=== PATIENT | female | born 1975 | race Caucasian/White ===

== ENCOUNTER → 2024-08-02 | Outpatient (CLI) | payer BC, SELFPAY ==
[2024-08-02 11:10] LABS: Absolute Lymphocyte Count 1.96 X10^3/uL (0.83-4.51); Absolute Neutrophil Count 4.9 X10^3/uL (2.0-7.7); Basophil# 0.03 X10^3/uL; Basophil% 0.4 % (0-1); Eosinophil# 0.17 X10^3/uL; Eosinophils% 2.3 % (0-5); Hematocrit 39.6 % (37-47); Hemoglobin 12.5 g/dL (12.0-15.0); Lymphocyte # 1.96 X10^3/ul (0.83-4.51); Lymphocyte % 26.3 % (19-41); Mean Corp Hgb Conc 31.6 g/dL (32-36); Mean Corpuscular Hgb 30.2 pg (27.0-32.0); Mean Corpuscular Volume 95.7 fL (81-99); Mean Platelet Vol. 9.2 fl (6.2-12.0); Monocyte# 0.33 X10^3/uL; Monocyte% 4.4 % (0-10); NRBC Flagged by Analyzer 0 % (0-5); Neutrophil # 4.94 X10^3/uL (2.7-7.7); Neutrophil % 66.2 % (47-70); Platelet Count 367 K/mm3 (150-450); RBC Distribution Width SD 45.4 fl (35.1-43.9); Red Blood Count 4.14 M/mm3 (4.2-5.4); White Blood Count 7.5 K/mm3 (4.4-11.0)
[2024-08-02 11:21] LABS: Erythrocyte Sedimentation Rate 30 mm/hr (0-30)
[2024-08-02 11:54] LABS: Vitamin B12 345 pg/mL (211-911)
[2024-08-02 11:55] LABS: Ferritin 52 ng/mL (8-252); Iron 48 ug/dL (50-170); Iron Binding Capacity,Total 339 ug/dL (250-450); LDH 162 U/L (84-246)
[2024-08-05 15:09] LABS: ACCA 20 units (0-90); ALCA 10 units (0-60); AMCA 26 units (0-100); Albumin 3.6 g/dL (2.9-4.4); Alpha-1-Globulins 0.3 g/dL (0.0-0.4); Alpha-2-Globulins 0.9 g/dL (0.4-1.0); Gamma Globulin 0.8 g/dL (0.4-1.8); Immunoglobulin A 148 mg/dL (87-352); Immunoglobulin G 733 mg/dL (586-1602); Immunoglobulin M 169 mg/dL (26-217); PROEL- TOTAL PROTEIN 6.8 g/dL (6.0-8.5); gASCA 22 units (0-50)
[2024-08-06 19:07] LABS: Anti-Centromere B Ab <0.2 AI (0.0-0.9); Anti-Chromatin <0.2 AI (0.0-0.9); Anti-Jo <0.2 AI (0.0-0.9); Anti-Scleroderma-70 AB <0.2 AI (0.0-0.9); Anti-dsDNA Ab <1 IU/mL (0-9); Beef <0.10 kU/L (Class 0); Chocolate <0.10 kU/L (Class 0); Codfish <0.10 kU/L (Class 0); Corn <0.10 kU/L (Class 0); Egg, Whole <0.10 kU/L (Class 0); Milk (Cow) <0.10 kU/L (Class 0); Mussels <0.10 kU/L (Class 0); Peanut <0.10 kU/L (Class 0); Pork <0.10 kU/L (Class 0); RNP Ab <0.2 AI (0.0-0.9); SJOGREN'S Anti-SS-A test < 0.2 AI (0.0-0.9); SJOGREN'S Anti-SS-B test < 0.2 AI (0.0-0.9); Salmon <0.10 kU/L (Class 0); Shrimp <0.10 kU/L (Class 0); Smith Ab <0.2 AI (0.0-0.9); Soybean <0.10 kU/L (Class 0); Tuna <0.10 kU/L (Class 0); Wheat <0.10 kU/L (Class 0)
== END | disposition home or self-care (01) ==
LOC: LAB 10:45
PROVIDERS: PCP Nurse Practitioner Family; Referring Provider Internal Medicine Gastroenterology; Visit Provider Internal Medicine Gastroenterology
DX: R19.7 Diarrhea, unspecified (principal); K90.0 Celiac disease
CPT/HCPCS: 36415; 82607; 82728; 82784; 83516; 83540; 83550; 83615; 84165; 85025; 85652; 86003; 86005; 86036; 86140; 86225; 86235; 86334; 86671

== ENCOUNTER → 2024-08-09 | Outpatient (CLI) | payer BC, SELFPAY ==
--- OUTSIDE RECORDS SUMMARY | 2024-08-09 11:13 | XMS RPT_ITS | CCD ---
Author Organization [facility] CliniSyct Care Team Providers Care Foreign Service Officer Name Role Phone BARTLETT HOTEL CASINO FLOORPERSON-BULLET SWAGING MACHINE OPERATOR, CORRINA Chapa Primary Care Physician B[employer]LETT H[employer] CASINO FLOORPERSON-BULLET SWAGING MACHINE OPERATOR, CORRINA Chapa Attending Unavai lable B[employer] FLOORPERSON-BULLET SWAGING MACHINE OPERATOR, CORRINA Chapa Primary Care Rodri MARIE MD, DR DELGADILLO Attending Unavailabl e [employer] FLOORPERSON-BULLET SWAGING MACHINE OPERATOR, CORRINA Chapa Primary Care Rodri LOMELI MD, BOBBI Attending Unavailable [employer] FLOORPERSON-BULLET SWAGING MACHINE OPERATOR, CORRINA Chapa Primary Care Unavai lable B[employer] CASINO FLOORPERSON-BULLET SWAGING MACHINE OPERATOR, CORRINA Chapa Attending Unavai lable B[employer]LETT [employer] CASINO FLOORPERSON-BULLET SWAGING MACHINE OPERATOR, CORRINA L Primary Care Unavai lable B[employer] CASINO FLOORPERSON-BULLET SWAGING MACHINE OPERATOR, CORRINA Chapa Attending Unavai lable B[employer]LETT [employer] CASINO FLOORPERSON-BULLET SWAGING MACHINE OPERATOR, CORRINA L Primary Care Unavai lable B[employer]LE[employer] CASINO FLOORPERSON-BULLET SWAGING MACHINE OPERATOR, CORRINA Chapa Attending Unavai lable B[employer]LE[employer] CASINO FLOORPERSON-BULLET SWAGING MACHINE OPERATOR, CORRINA L Primary Care Unavai lable B[employer]LE[employer] CASINO FLOORPERSON-BULLET SWAGING MACHINE OPERATOR, CORRINA Chapa Attending Unavai lable B[employer]LETT H[employer] CASINO FLOORPERSON-BULLET SWAGING MACHINE OPERATOR, CORRINA L Primary Care Unavai lable JUNIOR HOTEL CASINO FLOORPERSON-BULLET SWAGING MACHINE OPERATOR, BETZAIDA Attending Unavail able BARTLETT HOTEL CASINO FLOORPERSON-BULLET SWAGING MACHINE OPERATOR, CRORINA L Primary Care Unavai lable [employer] CASINO FLOORPERSON-BULLET SWAGING MACHINE OPERATOR, CORRINA Chapa Attending Unavai lable B[employer]LETT H[employer] CASINO FLOORPERSON-BULLET SWAGING MACHINE OPERATOR, CORRINA L Primary Care Unavai lable B[employer] CASINO FLOORPERSON-BULLET SWAGING MACHINE OPERATOR, CORRINA Chapa Attending Unavai lable B[employer]LE[employer] H[employer] CASINO FLOORPERSON-BULLET SWAGING MACHINE OPERATOR, CORRINA L Primary Care Unavai lable [employer] CASINO FLOORPERSON-BULLET SWAGING MACHINE OPERATOR, CORRINA L Primary Care Unavatyree MAHAJAN MD, FAITH Attending Basil SPANN MD, DIMITRIS Admitting Basil MORALES MD, DR DANIELLE Consulting BOBBI Banks Attending Unavailable Allergies Allergy Classification Reported Allergen(s) Allergy Type Date of Onset Reaction(s) Facility Grains (1 source) Gluten Food Allergy Eruption of skin (disorder) [facility] (6 sources) Gluten Food allergy Eruption of skin (disorder) [facility] Medications Current Medications Medication Drug Class(es) Dates Sig (Normalized) Sig (Original) acetaminophen 500 mg / diphenhydrAMINE hydrochloride 25 mg oral tablet (9 sources) Histamine-1 Receptor Antagonist Start: 01-16-2024 take 1 tablet by mouth once daily at bedtime as needed for pain Tylenol PM Extra Strength oral tablet Dose = 1 tab(s), Oral, qHS, PRN as needed for pain, # 10 tab(s), 0 Refill(s) Start Date: 01/16/24 Status: Ordered aspirin 81 mg chewable tablet (1 source) Platelet Aggregation Inhibitor, Nonsteroidal Anti-inflammatory Drug Start: 07-16-2024 End: 10-14-2024 aspirin 81 mg oral tablet, chewable Dose : 81 mg = 1 tab(s), Oral, Daily, # 30 tab(s), 2 Refill(s), Pharmacy: [facility]/pharmacy #[id number], 160, cm, 07/15/24 8:27:00 EDT, Height, kg, 07/15/24 13:48:00 EDT, Dosing Weight Start Date: 07/16/24 Stop Date: 10/14/24 Status: Ordered atorvastatin 40 mg oral tablet (1 source) HMG-CoA Reductase Inhibitor Start: 07-16-2024 End: 10-14-2024 atorvastatin 40 mg oral tablet Dose : 40 mg = 1 tab(s), Oral, qDay, # 30 tab(s), 2 Refill(s), Pharmacy: [facility]/pharmacy #[id number], 160, cm, 07/15/24 8:27:00 EDT, Height, kg, 07/15/24 13:48:00 EDT, Dosing Weight Start Date: 07/16/24 Stop Date: 10/14/24 Status: Ordered celecoxib 200 mg oral capsule (4 sources) Nonsteroidal Anti-inflammatory Drug Start: 05-03-2024 End: 06-29-2024 CeleBREX 200 mg oral capsule Dose : 200 mg = 1 cap(s), Oral, BID, # 60 cap(s), 0 Refill(s), Pharmacy: [facility]/pharmacy #[id number], Arthralgia, 158.5, cm, 04/30/24 10:10:00 EDT, Height, kg, 04/30/24 10:10:00 EDT, Dosing Weight Start Date: 05/30/24 Stop Date: 06/29/24 Status: Ordered Start: 03-22-2024 End: 04-21-2024 CeleBREX 100 mg oral capsule Dose : 100 mg = 1 cap(s), Oral, BID, # 60 cap(s), 0 Refill(s), Pharmacy: [facility]/pharmacy #[id number], Arthralgia, 157.5, cm, 03/04/24 10:24:00 EDT, Height, kg, 03/04/24 10:24:00 EDT, Dosing Weight Start Date: 03/22/24 Stop Date: 04/21/24 Status: Ordered DULoxetine 60 mg delayed release oral capsule (3 sources) Serotonin and Norepinephrine Reuptake Inhibitor Start: 06-10-2024 End: 08-08-2024 DULoxetine 60 mg oral delayed release capsule Dose : 60 mg = 1 cap(s), Oral, qDay, # 30 cap(s), 0 Refill(s), Pharmacy: [facility]/pharmacy #[id number], 160, cm, 06/10/24 9:44:00 EDT, Height, kg, 06/10/24 9:44:00 EDT, Dosing Weight Start Date: 07/09/24 Stop Date: 08/08/24 Status: Ordered ezetimibe 10 mg oral tablet (7 sources) Dietary Cholesterol Absorption Inhibitor Start: 03-04-2024 End: 10-07-2024 Zetia 10 mg oral tablet Dose : 10 mg = 1 tab(s), Oral, qDay, # 90 tab(s), 0 Refill(s), Pharmacy: [facility]/pharmacy #[id number], Hyperlipidemia, 160, cm, 06/10/24 9:44:00 EDT, Height, kg, 06/10/24 9:44:00 EDT, Dosing Weight Start Date: 07/09/24 Stop Date: 10/07/24 Status: Ordered Fish Oils (9 sources) Start: 04-30-2024 End: 07-29-2024 omega-3 fish oil 1000 mg oral capsule Dose : 1,000 mg = 1 cap(s), Oral, TID, # 270 cap(s), 0 Refill(s), Pharmacy: [facility]/pharmacy #[id number], 158.5, cm, 04/30/24 10:10:00 EDT, Height, kg, 04/30/24 10:10:00 EDT, Dosing Weight Start Date: 04/30/24 Stop Date: 07/29/24 Status: Ordered Start: 01-16-2024 omega-3 fish o il 1000 mg oral capsule Dose : 1,000 mg = 1 cap(s), Oral, TID, # 90 cap(s), 0 Refill(s) Start Date: 01/16/24 Status: Ordered hydrOXYzine hydrochloride 10 mg oral tablet (3 sources) Antihistamine Start: 04-30-2024 End: 05-30-2024 hydrOXYzine hydrochloride 10 mg oral tablet Dose : 20 mg = 2 tab(s), Oral, QID, PRN as needed for anxiety, X 30 day(s), # 60 tab(s), 0 Refill(s), 05/30/24 10:36:00 AM EDT, Pharmacy: [facility]/pharmacy #[id number], 158.5, cm, 04/30/24 10:10:00 EDT, Height, kg, 04/30/24 10:10:00 EDT, Dosing Weight Start Date: 04/30/24 Stop Date: 05/30/24 Status: Ordered Start: 03-04-2024 End: 04-03-2024 hydrOXYzine hydrochloride 10 mg oral tablet Dose : 20 mg = 2 tab(s), Oral, QID, PRN as needed for anxiety, X 30 day(s), # 30 tab(s), 0 Refill(s), 04/03/24 1:01:00 PM EDT, Pharmacy: [facility]/pharmacy #[id number], 157.5, cm, 03/04/24 10:24:00 EDT, Height, kg, 03/04/24 10:24:00 EDT, Dosing Weight Start Date: 03/04/24 Stop Date: 04/03/24 Status: Ordered meloxicam 15 mg oral tablet (2 sources) Nonsteroidal Anti-inflammatory Drug Start: 01-30-2024 End: 04-29-2024 meloxicam 15 mg oral tablet Dose : 15 mg = 1 tab(s), Oral, qDay, Take with food/milk, # 90 tab(s), 0 Refill(s), Pharmacy: [facility]/pharmacy #[id number], 159, cm, 01/30/24 10:04:00 EDT, Height, kg, 01/30/24 10:04:00 EDT, Dosing Weight Start Date: 01/30/24 Stop Date: 04/29/24 Status: Ordered omeprazole 40 mg delayed release oral capsule (4 sources) Proton Pump Inhibitor Start: 07-09-2024 omeprazo le 40 mg oral delayed release capsule Dose : 40 mg = 1 cap(s), Oral, qDay, # 30 cap(s), 0 Refill(s), Pharmacy: [facility]/pharmacy #[id number], GERD (gastroesophageal reflux disease), 160, cm, 06/10/24 9:44:00 EDT, Height, kg, 06/10/24 9:44:00 EDT, Dosing Weight Start Date: 07/09/24 Status: Ordered Start: 05-30-2024 omeprazole 40 mg oral delayed release capsule Dose : 40 mg = 1 cap(s), Oral, qDay, # 30 cap(s), 0 Refill(s), Pharmacy: [facility]/pharmacy #[id number], GERD (gastroesophageal reflux disease), 158.5, cm, 04/30/24 10:10:00 EDT, Height, kg, 04/30/24 10:10:00 EDT, Dosing Weight Start Date: 05/30/24 Status: Ordered Start: 05-03-2024 omeprazole 40 mg oral delayed release capsule Dose : 40 mg = 1 cap(s), Oral, qDay, # 30 cap(s), 0 Refill(s), Pharmacy: [facility]/pharmacy #[id number], GERD (gastroesophageal reflux disease), 158.5, cm, 04/30/24 10:10:00 EDT, Height, kg, 04/30/24 10:10:00 EDT, Dosing Weight Start Date: 05/03/24 Status: Ordered rosuvastatin calcium 10 mg oral tablet (2 sources) HMG-CoA Reductase Inhibitor Start: 01-30-2024 End: 04-29-2024 rosuvastatin 10 mg oral tablet Dose : 10 mg = 1 tab(s), Oral, qDay, # 90 tab(s), 0 Refill(s), [id number], Hyperlipidemia, 159, cm, 01/30/24 10:04:00 EDT, Height, kg, 01/30/24 10:04:00 EDT, Dosing Weight Start Date: 01/30/24 Stop Date: 04/29/24 Status: Ordered traMADol hydrochloride 50 mg oral tablet (2 sources) Opioid Agonist Start: 03-04-2024 End: 04-03-2024 traMADol 50 mg oral tablet Dose : 50 mg = 1 tab(s), Oral, q12h, PRN as needed for pain, X 30 day(s), # 30 tab(s), 0 Refill(s), 04/03/24 11:23:00 AM EDT, [id number], Low back pain Right hip pain, 157.5, cm, 03/04/24 10:24:00 EDT, Height, 86.2, kg, 03/04/24 10:24:00 EDT, Dosing Weight Start Date: 03/04/24 Stop Date: 04/03/24 Status: Ordered triamcinolone acetonide 1 mg/ml topical cream (5 sources) Corticosteroid Start: 04-30-2024 triamcinolone 0.1% topical cream Apply 1 arthur, Topical, BID, # 80 gram(s), 0 Refill(s), Cream, 82.72 Start Date: 04/30/24 Status: Ordered Start: 03-04-2024 End: 03-18-2024 triamcinolone 0.1% topical c ream Apply 1 arthur, Topical, BID, X 14 day(s), # 60 gram(s), 0 Refill(s), Pharmacy: [facility]/pharmacy #[id number], Cream, 157.5, cm, 03/04/24 10:24:00 EDT, Height, 86.2, kg, 03/04/24 10:24:00 EDT, Dosing Weight Start Date: 03/04/24 Stop Date: 03/18/24 Status: Ordered Completed/Discontinued Medications Medication Drug Class(es) Dates Sig (Normalized) Sig (Original) simethicone 66.7 mg/ml oral suspension (6 sources) Start: 04-30-2024 End: 05-30-2024 take 0.3 mL by mouth at bedtime as needed simethicone 20 mg/0.3 mL oral suspension Dose : 20 mg = 0.3 mL, Oral, pchs, PRN as needed for gas, X 30 day(s), # 30 mL, 0 Refill(s), 05/30/24 10:36:00 AM EDT, Pharmacy: [facility]/pharmacy #[id number], 158.5, cm, 04/30/24 10:10:00 EDT, Height, kg, 04/30/24 10:10:00 EDT, Dosing Weight Start Date: 04/30/24 Stop Date: 05/30/24 Status: Ordered Start: 01-16-2024 take 0.3 mL by mouth at bedtime as needed simethicone 20 mg/0.3 mL oral suspension Dose : 20 mg = 0.3 mL, Oral, pchs, PRN as needed for gas, # 30 mL, 0 Refill(s) Start Date: 01/16/24 Status: Ordered Problems Problem Classification Problem Date Documented Date Episodic/Chronic Disorders of lipid metabolism (9 sources) Hyperlipidemia 01-31-2024 Chronic Essential hypertension (1 source) Essential hypertension; Translations: [Essential (primary) hypertension] Onset: 03-01-2024 Chronic Fluid and electrolyte disorders (1 source) Hyperosmolality with hypernatremia; Translations: [Hyperosmolality and hypernatremia] Onset: 03-01-2024 Episodic Heart valve disorders (1 source) Heart murmur; Translations: [Cardiac murmur, unspecified] Onset: 03-01-2024 Episodic Immunizations and screening for infectious disease (20 sources) Abnormal finding on evaluation procedure; Translations: [Other specified abnormal immunological findings in serum] Episodic Noninfectious gastroenteritis (9 sources) Chronic diarrhea 01-31-2024 Episodic Nonspecific chest pain (3 sources) Chest pain; Translations: [Chest pain, unspecified] Onset: 07-11-2024 Episodic Other connective tissue disease (2 sources) Muscle pain 06-13-2024 Episodic Other lower respiratory disease (1 source) Dyspnea; Translations: [Dyspnea, unspecified] Onset: 03-01-2024 Episodic Other non-traumatic joint disorders (1 source) Pain in right hip joint; Translations: [Pain in right hip] Episodic Other non-traumatic joint disorders (10 sources) Joint pain; Translations: [Pain in unspecified joint] Episodic Other non-traumatic joint disorders (9 sources) Hip pain 01-31-2024 Episodic Other nutritional; endocrine; and metabolic disorders (9 sources) Body mass index 30+ - obesity 01-31-2024 Chronic Other screening for suspected conditions (not mental disorders or infectious disease) (2 sources) Encounter for screening for malignant neoplasm of cervix; Translations: [Encounter for screening for malignant neoplasm of cervix] Onset: 06-10-2024 Episodic Residual codes; unclassified (9 sources) Screening due 01-31-2024 Episodic Unclassified (9 sources) Never smoked tobacco 01-31-2024 Results Test Name Value Interpretation Reference Range Facility CT ANGIOGRAPHY CHEST W/CONTR Roshan 07-16-2024 CT ANGIOGRAPHY CHEST W/CONTRAST ORIGINAL EXAMINATION: CTA OF THE CHEST 07/16/2024 3:05 am TECHNIQUE: CTA of the chest was performed after the administration of intravenous contrast. Multiplanar reformatted images are provided for review. MIP images are provided for review. Automated exposure control, iterative reconstruction, and/or weight based adjustment of the mA/kV was utilized to reduce the radiation dose to as low as reasonably achievable. COMPARISON: None. HISTORY: ORDERING SYSTEM PROVIDED HISTORY: Reason for Exam: Patient states cp and sob since . cp FINDINGS: Respiratory motion limits some detail. Pulmonary Arteries: Pulmonary arteries are adequately opacified for evaluation. No evidence of intraluminal filling defect to suggest pulmonary embolism. Main pulmonary artery is normal in caliber. Mediastinum: No evidence of mediastinal lymphadenopathy. The heart and pericardium demonstrate no acute abnormality. There is no acute abnormality of the thoracic aorta. Lungs/pleura: No endobronchial are main endotracheal lesion. No pneumothorax or pleural effusion. Hypoventilatory changes with bibasilar atelectasis. No focal consolidation or pulmonary edema. Upper Abdomen: Punctate gallstone. Tiny sliding hiatal hernia. Visualized upper abdomen is otherwise noncontributory. Soft Tissues/Bones: No acute bone or soft tissue abnormality. IMPRESSION: No evidence of pulmonary embolism or acute pulmonary abnormality. Hypoventilatory changes. Incidental punctate gallstone. I have personally reviewed the images of this examination and agree with the resident's findings and interpretation. Interpreted by: Kurt Holder MD Preliminary Report By: Otilio Redd Electronically signed By Kurt Holder MD Dictated Date: 07/16/2024 3:07:04 AM Prelim Date: 07/16/2024 3:13:15 AM Sign Date: 07/16/2024 3:49:00 AM Ordering Provider: DIMITRIS [facility] MAIN LABORATORYOrdered By: SYSTEM SYSTEM on 07-16-2024 Troponin I.cardiac DL <= 0.01 ng/mL [Mass/Vol] ng/L Normal 0 - 34 ng/L ADM Comment on above: Interpretive Data: High Sensitive Troponin I Reference Ranges: Female: 0-34 ng/L Male: 0-54 ng/L Testing performed on [employer] IM analyzer using direct chemiluminescent technology. Troponin I.cardiac DL <= 0.01 ng/mL [Mass/Vol] ng/L Normal 0 - 34 ng/L ADM SS Comment on above: Interpretive Data: High Sensitive Troponin I Reference Ranges: Female: 0-34 ng/L Male: 0-54 ng/L Testing performed on [employer] IM analyzer using direct chemiluminescent technology. Troponin I.cardiac DL <= 0.01 ng/mL [Mass/Vol] ng/L Normal 0 - 34 ng/L ADM SS Comment on above: Interpretive Data: High Sensitive Troponin I Reference Ranges: Female: 0-34 ng/L Male: 0-54 ng/L Testing performed on [employer] IM analyzer using direct chemiluminescent technology. NM MYOCARDIAL SPECT STRESS/R ESTon 07-16-2024 NM MYOCARDIAL SPECT STRESS/REST ORIGINAL EXAMINATION: CARDIAC SPECT07/16/2024 10:00 am TECHNIQUE: Lexiscan dose: 0.4 mg IV Radiopharmaceutical (rest and stress doses): Tc-99m Sestamibi IV 8.4 and 26.5 mCi SPECT acquisition and processing: Images reconstructed into short, vertical long, and horizontal long axis planes. Wall motion evaluation and quantitative LVEF assessment. COMPARISON: CTA chest from same day at 2:54 a.m. HISTORY: Reason for Exam: cp FINDINGS: Presumed soft tissue attenuation at the apex and apical to mid anterior wall is limiting evaluation. Otherwise, no convincing stress-induced reversible perfusion abnormality is seen in the remaining left ventricular myocardium. No fixed perfusion defect is seen to suggest infarction. The left ventricular end-diastolic volume is 84 mL. Gated imaging demonstrates no regional wall motion abnormality. Estimated left ventricular ejection fraction is 70 %. TID ratio is normal at 1.19. Low-dose attenuation correction CT demonstrates no coronary atherosclerotic calcifications. The heart is normal in size. No pericardial or pleural effusion is seen. There is dependent atelectasis. IMPRESSION: 1. Presumed soft tissue attenuation at the apex and apical to mid anterior wall is limiting evaluation. Otherwise, no convincing stress-induced reversible perfusion abnormality is seen in the remaining left ventricular myocardium. 2. Cardiac systolic function is normal with estimated ejection fraction of 70 %. I have personally reviewed the images of this examination and agree with the resident's findings and interpretation. Interpreted by: Piyush Hicks MD Preliminary Report By: Joaquim Hernandez Electronically signed By Piyush Hicks MD Dictated Date: 07/16/2024 10:15:00 AM Prelim Date: 07/16/2024 10:57:11 AM Sign Date: 07/16/2024 10:57:11 AM Ordering Provider: DIMITRIS SPANN [facility] 07-16-2024 High Sensitivity Troponin I <[address] [place] [address] MAIN Comment on above: Result Comment: High Sensitive Troponin I Reference Ranges: Female: 0-34 ng/L Male: 0-54 ng/L Testing performed on [employer] IM analyzer using direct chemiluminescent technology. Performed By: #### T SUJATA #### [place] [address] High Sensitivity Troponin I <[address] [place] [address] MAIN Comment on above: Result Comment: High Sensitive Troponin I Reference Ranges: Female: 0-34 ng/L Male: 0-54 ng/L Testing performed on [employer] IM analyzer using direct chemiluminescent technology. Performed By: #### T SUJATA #### [place] [address] High Sensitivity Troponin I <[address] [place] [address] MAIN Comment on above: Result Comment: High Sensitive Troponin I Reference Ranges: Female: 0-34 ng/L Male: 0-54 ng/L Testing performed on [employer] IM analyzer using direct chemiluminescent technology. Performed By: #### T SUJATA #### [address] [address] .Auto Diffon 07-15-2024 Basophil, Absolute 0.0 10 3/mcL Normal 0.0-0.3 [facility] MAIN Comment on above: Performed By: #### T ROPHS, GFR, DDHS, BMP, CBC, PBNP, ADIFF, MDW, ANEU #### [address] [address] Basophils/100 WBC (Bld) 0.3 % Normal 0.0-2.5 [facility] MAIN Comment on above: Performed By: #### T ROPHS, GFR, DDHS, BMP, CBC, PBNP, ADIFF, MDW, ANEU #### [address] [address] Eosinophil, Absolute 0.1 10 3/mcL Normal 0.0-0.7 [facility] MAIN Comment on above: Performed By: #### T ROPHS, GFR, DDHS, BMP, CBC, PBNP, ADIFF, MDW, ANEU #### [address] [address] Eosinophils/100 WBC (Bld) 1.3 % Normal 0.0-6.0 [facility] MAIN Comment on above: Performed By: #### T ROPHS, GFR, DDHS, BMP, CBC, PBNP, ADIFF, MDW, ANEU #### [address] [address] Lymphocyte, Absolute 1.9 10 3/mcL Normal 0.9-4.3 [facility] MAIN Comment on above: Performed By: #### T ROPHS, GFR, DDHS, BMP, CBC, PBNP, ADIFF, MDW, ANEU #### [address] [address] Lymphocytes/100 WBC (Bld) 26.6 % Normal 20.0-40.0 [facility] MAIN Comment on above: Performed By: #### T ROPHS, GFR, DDHS, BMP, CBC, PBNP, ADIFF, MDW, ANEU #### [address] [address] Monocyte, Absolute 0.3 10 3/mcL Normal 0.1-1.4 [facility] MAIN Comment on above: Performed By: #### T ROPHS, GFR, DDHS, BMP, CBC, PBNP, TIFFANIE CASTELLANOS, ANEU #### [address] [address] Monocytes/100 WBC (Bld) 3.8 % Normal 2.0-13.0 [facility] MAIN Comment on above: Performed By: #### T ROPHS, GFR, DDHS, BMP, CBC, PBNP, TIFFANIE CASTELLANOS, ANEU #### [address] [address] Neutrophils/100 WBC (Bld) 68.0 % Normal 50.0-75.0 [facility] MAIN Comment on above: Performed By: #### T ROPHS, GFR, DDHS, BMP, CBC, PBGREGG, TIFFANIE CASTELLANOS, ANEU #### [address] [address] .GFRon 07-15-2024 GFR >60 [facility] MAIN Comment on above: Result Comment: GFR Population mean for , Non- Americans Ages 20-29 = 116 mL/min/1.73 sq.m. Ages 30-39 = 107 mL/min/1.73 sq.m. Ages 40-49 = 99 mL/min/1.73 sq.m. Ages 50-59 = 93 mL/min/1.73 sq.m. Ages 60-69 = 85 mL/min/1.73 sq.m. Ages 70+ = 75 mL/min/1.73 sq.m. Chronic Kidney Disease: Less than 60 mL/min/1.73 square meters End Stage Renal Disease: Less than 15 mL/min/1.73 square meters Performed By: #### T ROPHS, GFR, DDHS, BMP, CBC, PBNP, TIFFANIE CASTELLANOS, ANEU ####[address] [address] GFR Non- >60 [facility] MAIN Comment on above: Result Comment: GFR Population mean for , Non- Americans Ages 20-29 = 116 mL/min/1.73 sq.m. Ages 30-39 = 107 mL/min/1.73 sq.m. Ages 40-49 = 99 mL/min/1.73 sq.m. Ages 50-59 = 93 mL/min/1.73 sq.m. Ages 60-69 = 85 mL/min/1.73 sq.m. Ages 70+ = 75 mL/min/1.73 sq.m. Chronic Kidney Disease: Less than 60 mL/min/1.73 square meters End Stage Renal Disease: Less than 15 mL/min/1.73 square meters Performed By: #### T ROPHS, GFR, DDHS, BMP, CBC, PBNP, ADIFF, MDW, ANEU ####[place] [address] .MDWon 07-15-2024 Monocyte Distribution Width 18.42 Normal 0.00-20.00 [facility] MAIN Comment on above: Result Comment: For ED adult patients suspected of sepsis, MDW<=20.0 does not rule out sepsis or risk of sepsis Performed By: #### T ROPHS, GFR, DDHS, BMP, CBC, PBNP, ADIFF, MDW, ANEU ####[place] [address] .NEUABSon 07-15-2024 Neutrophil, Absolute 4.8 10 3/mcL Normal 2.3-8.1 [facility] MAIN Comment on above: Performed By: #### T ROPHS, GFR, DDHS, BMP, CBC, PBNP, ADIFF, MDW, ANEU #### [place] [address] BMPon 07-15-2024 BUN/Creatinine Ratio 14.0 ratio Normal 10.0-22.0 [facility] MAIN Comment on above: Performed By: #### T ROPHS, GFR, DDHS, BMP, CBC, PBNP, ADIFF, MDW, ANEU ####[place] [address] Calcium [Mass/Vol] 9.4 mg/dL Normal 8.7-10.4 [facility] MAIN Comment on above: Performed By: #### T ROPHS, GFR, DDHS, BMP, CBC, PBNP, ADIFF, MDW, ANEU ####[id number] [place], [place] [address] Chloride [Moles/Vol] 110 mmol/L Normal 98-110 [facility] MAIN Comment on above: Performed By: #### T SUJATA, GFR, DDHS, BMP, CBC, PBGREGG, TIFFANIE CASTELLANOS, ANEU ####[address] [address] CO2 [Moles/Vol] 26 mmol/L Normal 22-32 [facility] MAIN Comment on above: Performed By: #### T SUJATA, GFR, DDHS, BMP, CBC, JOSH, TIFFANIE CASTELLANOS, ANEU ####[address] [address] Creatinine [Mass/Vol] 0.57 mg/dL Normal 0.50-1.20 [facility] MAIN Comment on above: Result Comment: Test ing performed on [employer] analyzer using enzymatic creatinine methodology. Performed By: #### T SUJATA, GFR, DDHS, BMP, CBC, JOSH, TIFFANIE CASTELLANOS, ANEU ####[address] [address] Electrolyte Balance 5.0 mEq/L Normal 4.0-15.0 [facility] MAIN Comment on above: Performed By: #### T SUJATA, GFR, DDHS, BMP, CBC, JOSH, TIFFANIE CASTELLANOS, ANEU ####[address] [address] Glucose [Mass/Vol] 138 mg/dL High 70-110 [facility] MAIN Comment on above: Performed By: #### T SUJATA, GFR, DDHS, BMP, CBC, JOSH, TIFFANIE CASTELLANOS, ANEU ####[address] [address] Potassium [Moles/Vol] 3.9 mmol/L Normal 3.5-5.0 [facility] MAIN Comment on above: Performed By: #### T SUJATA, GFR, DDHS, BMP, CBC, JOSH, TIFFANIE CASTELLANOS, ANEU ####[address] [address] Sodium [Moles/Vol] 141 mmol/L Normal 136-145 [facility] Comment on above: Performed By: #### T ROPHS, GFR, DDHS, BMP, CBC, PBNP, EMANUEL, TIFFANIE, ANEU ####[place] [address] Urea nitrogen [Mass/Vol] 8.0 mg/dL Normal 8.0-22.0 [facility] Comment on above: Performed By: #### T ROPHS, GFR, DDHS, BMP, CBC, PBNP, EMANUEL, W, ANEU ####[place] [address] CBCon 07-15-2024 Erythrocyte distribution width (RBC) [Ratio] 13.5 % Normal 11.5-15.5 [facility] Comment on above: Performed By: #### T ROPHS, GFR, DDHS, BMP, CBC, PBNP, TIFFANIE CASTELLANOS, ANEU #### [place] [address] Hematocrit (Bld) [Volume fraction] 35.8 % Normal 34.0-46.0 [facility] Comment on above: Performed By: #### T ROPHS, GFR, DDHS, BMP, CBC, PBNP, EMANUEL, TIFFANIE, ANEU #### [place] [address] Hgb 12.1 G/dL Normal 12.0-16.0 [facility] Comment on above: Performed By: #### T ROPHS, GFR, DDHS, BMP, CBC, PBNP, EMANUEL, TIFFANIE, ANEU #### [place] [address] MCH (RBC) [Entitic mass] 31.3 pg Normal 27.0-33.0 [facility] Comment on above: Performed By: #### T ROPHS, GFR, DDHS, BMP, CBC, PBNP, EMANUEL, TIFFANIE, ANEU #### [place] [address] MCHC 33.9 G/dL Normal 32.0-36.0 [facility] Comment on above: Performed By: #### T ROPHS, GFR, DDHS, BMP, CBC, PBNP, ADNIDA, TIFFANIE, ANEU #### [place] [address] MCV (RBC) [Entitic vol] 92.4 fL Normal 80.0-99.0 [facility] Comment on above: Performed By: #### T ROPHS, GFR, DDHS, BMP, CBC, PBNP, EMANUEL, TIFFANIE, ANEU #### [place] [address] Platelet 312 10 3/mcL Normal 150-450 [facility] Comment on above: Performed By: #### T ROPHS, GFR, DDHS, BMP, CBC, PBNP, EMANUEL, TIFFANIE, ANEU #### [place] [address] Platelet mean volume (Bld) [Entitic vol] 7.5 fL Normal 6.6-10.5 [facility] Comment on above: Performed By: #### T SUJATA, GFR, DDHS, BMP, CBC, PBNP, EMANUEL, TIFFANIE, ANEU #### [place] [address] RBC 3.88 10 6/mcL Low 4.10-5.30 [facility] Comment on above: Performed By: #### T ROPNAIMA, GFR, DDHS, BMP, CBC, PBNP, EMANUEL, TIFFANIE, ANEU #### [place] [address] WBC 7.1 10 3/mcL Normal 4.5-10.8 [facility] Comment on above: Performed By: #### T ROPHS, GFR, DDHS, BMP, CBC, PBNP, EMANUEL, TIFFANIE, ANEU #### [place] [address] DDHSon 07-15-2024 D-Dimer HS <200 Normal 0-230 [facility] Comment on above: Result Comment: DDN: Results reported in D-DU ng/mL. Negative for D-dimer. DVT/PE is highly unlikely. Note: False negative results may be seen in patients on anticoagulant therapy. The result of the D-Dimer test should be evaluated in the context of all the clinical and laboratory data available. In those instances where the laboratory result does not agree with the clinical evaluation, additional tests should be performed accordingly. Performed By: #### T ROPHS, GFR, DDHS, BMP, CBC, PBNP, EMANUEL, TIFFANIE, [facility] ####[place] [address] LABORATORYOrdered By: SYSTEM SYSTEM on 07-15-2024 Basophils (Bld) [#/Vol] 0.0 103/mcL Normal 0.0 - 0.3 10^3/mcL AH Workflow SS Basophils/100 WBC (Bld) 0.3 % Normal 0.0 - 2.5 % AH Workflow SS Calcium [Mass/Vol] 9.4 mg/dL Normal 8.7 - 10. 4 mg/dL AH ADM SS Chloride [Moles/Vol] 110 mmol/L Normal 98 - 11 0 mEq/L AH ADM SS CO2 [Moles/Vol] 26 mmol/L Normal 22 - 32 mEq/L AH ADM SS Creatinine [Mass/Vol] 0.57 mg/dL Normal 0.50 - 1.20 mg/dL AH ADM SS Comment on above: Interpretive Data: T esting performed on [employer] analyzer using enzymatic creatinine methodology. D-Dimer HS ng/mL D-DU Normal 0 - 230 ng/mL D-DU [employer] SS Comment on above: Result Comment: DDN: Results reported in D-DU ng/mL. Negative for D-dimer. DVT/PE is highly unlikely. Note: False negative results may be seen in patients on anticoagulant therapy. Interpretive Data: T he result of the D-Dimer test should be evaluated in the context of all the clinical and laboratory data available. In those instances where the laboratory result does not agree with the clinical evaluation, additional tests should be performed accordingly. Electrolyte Balance 5.0 mEq/L Normal 4.0 - 15 .0 mEq/L AH ADM SS Eosinophils (Bld) [#/Vol] 0.1 103/mcL Normal 0.0 - 0.7 10^3/mcL AH Workflow SS Eosinophils/100 WBC (Bld) 1.3 % Normal 0.0 - 6.0 % AH Workflow SS Erythrocyte distribution width (RBC) [Ratio] 13.5 % Normal 11.5 - 15.5 % AH Workflow SS GFR/1.73 sq M.predicted among blacks MDRD (S/P/Bld) [Vol rate/Area] ml/min/1.73sqm Invalid Interpretation Code ADM Comment on above: Interpretive Data: GFR Population mean for , Non- Americans Ages 20-29 = 116 mL/min/1.73 sq.m. Ages 30-39 = 107 mL/min/1.73 sq.m. Ages 40-49 = 99 mL/min/1.73 sq.m. Ages 50-59 = 93 mL/min/1.73 sq.m. Ages 60-69 = 85 mL/min/1.73 sq.m. Ages 70+ = 75 mL/min/1.73 sq.m. Chronic Kidney Disease: Less than 60 mL/min/1.73 square meters End Stage Renal Disease: Less than 15 mL/min/1.73 square meters GFR/1.73 sq M.predicted among non-blacks MDRD (S/P/Bld) [Vol rate/Area] ml/min/1.73sqm Invalid Interpretation Code [facility] Comment on above: Interpretive Data: GFR Population mean for , Non- Americans Ages 20-29 = 116 mL/min/1.73 sq.m. Ages 30-39 = 107 mL/min/1.73 sq.m. Ages 40-49 = 99 mL/min/1.73 sq.m. Ages 50-59 = 93 mL/min/1.73 sq.m. Ages 60-69 = 85 mL/min/1.73 sq.m. Ages 70+ = 75 mL/min/1.73 sq.m. Chronic Kidney Disease: Less than 60 mL/min/1.73 square meters End Stage Renal Disease: Less than 15 mL/min/1.73 square meters Glucose [Mass/Vol] 138 mg/dL High 70 - 110 mg/dL ADM SS Hematocrit (Bld) [Volume fraction] 35.8 % Normal 34.0 - 46.0 % Workflow SS Hemoglobin (Bld) [Mass/Vol] 12.1 G/dL Normal 12.0 - 16.0 G/dL AH Workflow SS Lymphocytes (Bld) [#/Vol] 1.9 103/mcL Normal 0.9 - 4.3 10^3/mcL AH Workflow SS Lymphocytes/100 WBC (Bld) 26.6 % Normal 20.0 - 40.0 % AH Workflow SS MCH (RBC) [Entitic mass] 31.3 pg Normal 27.0 - 33.0 pg AH Workflow SS MCHC 33.9 G/dL Normal 32.0 - 36.0 G/dL AH Workflow SS MCV (RBC) [Entitic vol] 92.4 fL Normal 80.0 - 99.0 fL AH Workflow SS Monocyte distribution width Auto (Bld) [Entitic vol] 18.42 1 Normal 0.00 - 20.00 AH Workflow SS Comment on above: Result Comment: For ED adult patients suspected of sepsis, MDW<=20.0 does not rule out sepsis or risk of sepsis Monocytes (Bld) [#/Vol] 0.3 103/mcL Normal 0.1 - 1.4 10^3/mcL AH Workflow SS Monocytes/100 WBC (Bld) 3.8 % Normal 2.0 - 13.0 % AH Workflow SS Natriuretic peptide.B prohormone N-Terminal IA [Mass/Vol] 51 pg/mL Normal 0 - 450 pg/mL ADM SS Neutrophils (Bld) [#/Vol] 4.8 103/mcL Normal 2.3 - 8.1 10^3/mcL AH Workflow SS Neutrophils/100 WBC (Bld) 68.0 % Normal 50.0 - 75.0 % AH Workflow SS Platelet mean volume (Bld) [Entitic vol] 7.5 fL Normal 6.6 - 10.5 fL AH Workflow SS Platelets (Bld) [#/Vol] 312 103/mcL Normal 150 - 450 10^3/mcL AH Workflow SS Potassium [Moles/Vol] 3.9 mmol/L Normal 3.5 - 5.0 mEq/L AH ADM SS RBC (Bld) [#/Vol] 3.88 106/mcL Low 4.10 - 5.3 0 10^6/mcL AH Workflow SS Sodium [Moles/Vol] 141 mmol/L Normal 136 - 145 mEq/L AH ADM SS Urea nitrogen [Mass/Vol] 8.0 mg/dL Normal 8.0 - 22.0 mg/dL ADM SS Urea nitrogen/Creatinine [Mass ratio] 14.0 ratio Normal 10.0 - 22.0 ratio ADM SS WBC (Bld) [#/Vol] 7.1 103/mcL Normal 4.5 - 10.8 10^3/mcL AH Workflow SS PBNPon 07-15-2024 Natriuretic peptide B (Bld) [Mass/Vol] 51 pg/mL Normal 0-450 [facility] Comment on above: Performed By: #### T SUJATA, GFR, DDHS, BMP, CBC, PBNP, TIFFANIE CASTELLANOS, ANEU ####[address] [address] TROPHSon 07-15-2024 High Sensitivity Troponin I <3 Normal 0-34 [facility] Comment on above: Result Comment: High Sensitive Troponin I Reference Ranges: Female: 0-34 ng/L Male: 0-54 ng/L Testing performed on [employer] IM analyzer using direct chemiluminescent technology. Performed By: #### T SUJATA #### [address] [address] High Sensitivity Troponin I <3 Normal 0-34 [facility] Comment on above: Result Comment: High Sensitive Troponin I Reference Ranges: Female: 0-34 ng/L Male: 0-54 ng/L Testing performed on [employer] IM analyzer using direct chemiluminescent technology. Performed By: #### T SUJATA, GFR, DDHS, BMP, CBC, PBNP, TIFFANIE CASTELLANOS, ANEU ####[address] [address] XR CHEST 1 VIEWon 07-15-2024 XR CHEST 1 VIEW ORIGINAL EXAMINATION: ONE XRAY VIEW OF THE CHEST 07/15/2024 2:00 pm COMPARISON: 03/01/2024 HISTORY: ORDERING SYSTEM PROVIDED HISTORY: Reason for Exam: chest pain IMPRESSION: Cardiomediastinal silhouette is within normal limits. No overt edema. No focal consolidation. Costophrenic angles are sharp. No pneumothorax. No acute skeletal abnormality. No acute fracture. Interpreted by: Sylvia Green Preliminary Report By: Sylvia Green Electronically signed By Sylvia Green Dictated Date: 07/15/2024 2:01:38 PM Prelim Date: 07/15/2024 2:02:41 PM Sign Date: 07/15/2024 2:02:41 PM Ordering Provider: YASH MALDONADO [facility] BASIC METABOLIC PNLon 2023 Anion gap [Moles/Vol] 9 mmol/L Normal 4-16 [facility] Comment on above: Performed By: #### B AMP #### Meg Rodas ([id number]) [facility] [address] [place] [address] Calcium [Mass/Vol] 9.2 mg/dL Normal 8.5-10.4 [facility] Comment on above: Performed By: #### B AMP #### Meg Rodas ([id number]) [facility] [address] [place] [address] Chloride [Moles/Vol] 107 mmol/L Normal 98-111 [facility] Comment on above: Performed By: #### B AMP #### Meg Rodas ([id number]) [facility] [address] [place] [address] CO2 [Moles/Vol] 24 mmol/L Normal 21-31 [facility] Comment on above: Performed By: #### B AMP #### Meg Rodas ([id number]) [facility] [address] [place] [address] Creatinine [Mass/Vol] 0.61 mg/dL Normal 0.60-1.20 [facility] Comment on above: Performed By: #### B AMP #### Meg Rodas ([id number]) [facility] [address] [place] [address] ESTIMATED GFR 109 mL/min/1.73 m2 Normal >59 [facility] Comment on above: Result Comment: Almita mated GFR was calculated using the CKD-EPI cr (2020) equation refit without race. The equation is recommended by the National Kidney Foundation - [place] Society of Nephrology Task Force. Tested at [facility] [address] [facility] [address] Performed By: #### B AMP #### Meg Rodas ([id number]) [facility] [address] [place] [address] Glucose [Mass/Vol] 141 mg/dL High 70-99 [facility] Comment on above: Performed By: #### B AMP #### Meg Rodas ([id number]) [facility] [address] [place] [address] Potassium [Moles/Vol] 3.2 mmol/L Low 3.6-5.1 [facility] Comment on above: Performed By: #### B AMP #### Meg Rodas ([id number]) [facility] [address] [place] [address] Sodium [Moles/Vol] 140 mmol/L Normal 135-145 [facility] Comment on above: Performed By: #### B AMP #### Meg Rodas ([id number]) [facility] [address] [place] [address] Urea nitrogen [Mass/Vol] 18 mg/dL Normal 8-26 [facility] Comment on above: Performed By: #### B AMP #### Meg Rodas ([id number]) [facility] [address] [place] [address] CBC W/ DIFFon 07-12-2024 ABS BASOS 0.00 THOU/mcL Normal 0.00-0.20 [facility] Comment on above: Performed By: #### C BCD #### Meg Rodas ([id number]) [facility] [address] [place] [address] ABS EOS 0.20 THOU/mcL Normal 0.03-0.45 [facility] Comment on above: Performed By: #### C BCD #### Meg Rodas ([id number]) [facility] [address] [place] [address] ABS LYMPHS 3.10 THOU/mcL Normal 1.00-4.00 [facility] Comment on above: Performed By: #### C BCD #### Meg Rodas ([id number]) [facility] [address] [place] [address] ABS MONOS 0.40 THOU/mcL Normal 0.20-0.90 [facility] Comment on above: Performed By: #### C BCD #### Meg Rodas ([id number]) [facility] [address] [place] [address] ABS NEUTROPHIL 5.00 THOU/mcL Normal 1.80-7.70 [facility] Comment on above: Performed By: #### C BCD #### Meg Rodas ([id number]) [facility] [address] [place] [address] Basophils/100 WBC (Bld) 0 % Normal [facility] Comment on above: Result Comment: Test ed at [facility] [address] [facility] [address] Performed By: #### C BCD #### Meg Rodas ([id number]) [facility] [address] [place] [address] Eosinophils/100 WBC (Bld) 2 % Normal [facility] Comment on above: Performed By: #### C BCD #### Meg Rodas ([id number]) [facility] [address] [place] [address] Erythrocyte distribution width (RBC) [Ratio] 13.8 % Normal 12.3-17.0 [facility] Comment on above: Performed By: #### C BCD #### Meg Rodas ([id number]) [facility] [address] [place] [address] Hematocrit (Bld) [Volume fraction] 36.7 % Normal 36-46 [facility] Comment on above: Performed By: #### C BCD #### Meg Rodas ([id number]) [facility] [address] [place] [address] Hemoglobin (Bld) [Mass/Vol] 12.3 g/dL Normal 12.0-15.2 [facility] Comment on above: Performed By: #### C BCD #### Meg Rodas ([id number]) [facility] [address] [place] [address] Lymphocytes/100 WBC (Bld) 35 % Normal [facility] Comment on above: Performed By: #### C BCD #### Meg Rodas ([id number]) [facility] [address] [place] [address] MCH (RBC) [Entitic mass] 30.9 pg Normal 27-33 [facility] Comment on above: Performed By: #### C BCD #### Meg Rodas ([id number]) [facility] [address] [place] [address] MCHC (RBC) [Mass/Vol] 33.6 g/dL Normal 32-36 [facility] Comment on above: Performed By: #### C BCD #### Meg Rodas ([id number]) [facility] [address] [place] [address] MCV (RBC) [Entitic vol] 92.0 fL Normal 82-97 [facility] Comment on above: Performed By: #### C BCD #### Meg Rodas ([id number]) [facility] [address] [place] [address] Monocytes/100 WBC (Bld) 5 % Normal [facility] Comment on above: Performed By: #### C BCD #### Meg Rodas ([id number]) [facility] [address] [place] [address] PLATELET 338 THOU/mcL Normal 140-375 [facility] Comment on above: Performed By: #### C BCD #### Meg Rodas ([id number]) [facility] [address] [place] [address] Platelet mean volume (Bld) [Entitic vol] 8.0 fL Normal 7.4-11.5 [facility] Comment on above: Performed By: #### C BCD #### Meg Rodas ([id number]) [facility] [address] [place] [address] RBC 3.98 MIL/mcL Normal 3.80-5.20 [facility] Comment on above: Performed By: #### C BCD #### Meg Rodas ([id number]) [facility] [address] [place] [address] SEGS 58 % Normal [facility] Comment on above: Performed By: #### C BCD #### Meg Rodas ([id number]) [facility] [address] [place] [address] WBC 8.7 THOU/mcL Normal 3.6-10.5 [facility] Comment on above: Performed By: #### C BCD #### Meg Rodas ([id number]) [facility] [address] [place] [address] D DIMER QUANTITATIVEon 07-12 D DIMER QUANTITATIVE <0.27 Normal <0.5 [facility] Comment on above: Result Comment: A cu t-off of 0.5 mcg/ml FEU can be used, in conjunction with a clinical pretest probability (PTP) assessment model, to exclude pulmonary embolism (PE) and aid in the diagnosis of deep venous thrombosis (DVT) for patients with low to moderate risk. Increased levels of D-Dimer are associated with PE, DVT, DIC, malignancies, inflammation, sepsis, surgery, trauma, , and advancing patient age. Tested at [facility] [address] [facility] [address] Performed By: #### D DQ #### Meg Rodas ([id number]) [facility] [address] [place] [address] HEPATIC FUNC PANELon 024 Albumin [Mass/Vol] 4.0 g/dL Normal 3.5-5.7 [facility] Comment on above: Performed By: #### L IVER #### Meg Rodas ([id number]) [facility] [address] [place] [address] ALP [Catalytic activity/Vol] 69 U/L Normal 35-135 [facility] Comment on above: Performed By: #### L IVER #### Meg Rodas ([id number]) [facility] [address] [place] [address] ALT [Catalytic activity/Vol] 10 U/L Normal 10-60 [facility] Comment on above: Performed By: #### L IVER #### Meg Rodas ([id number]) [facility] [address] [place] [address] AST [Catalytic activity/Vol] 10 U/L Normal 10-40 [facility] Comment on above: Performed By: #### L IVER #### Meg Rodas ([id number]) [facility] [address] [place] [address] Bilirubin [Mass/Vol] 0.3 mg/dL Normal 0.0-1.2 [facility] Comment on above: Performed By: #### L IVER #### Meg Rodas ([id number]) [facility] [address] [place] [address] Bilirubin.direct [Mass/Vol] 0.0 mg/dL Normal 0.0-0.2 [facility] Comment on above: Result Comment: Test ed at [place] [address] Performed By: #### L IVER #### Meg Rodas ([id number]) [facility] [address] [place] [address] Protein [Mass/Vol] 6.4 g/dL Normal 6.0-8.0 [facility] Comment on above: Performed By: #### L IVER #### Meg Rodas ([id number]) [place] [address] LIPASEon 07-12-2024 Lipase [Catalytic activity/Vol] 11 U/L Normal 11-82 [facility] Comment on above: Result Comment: Test ed at [place] [address] Performed By: #### L IPA #### Meg Rodas ([id number]) [place] [address] TROPONIN I HIGH SENSITIVEon 07-12-2024 TROPONIN I HIGH SENSITIVE <3 Normal <15 [facility] Comment on above: Result Comment: Inte rpretive Guidelines: LOW RISK: <3 ng/L or Delta <4 and below 15 ng/L LOW INTERMEDIATE RISK: <15 ng/L HIGH INTERMEDIATE RISK: >/=15 ng/L HIGH RISK: >/=88 ng/L or Delta >/=22 Tested at [place] [address] Performed By: #### H STNI #### Meg Rodas ([id number]) [place] [address] TROPONIN I HIGH SENSITIVE 3 ng/L Normal <15 [facility] Comment on above: Result Comment: Inte rpretive Guidelines: LOW RISK: <3 ng/L or Delta <4 and below 15 ng/L LOW INTERMEDIATE RISK: <15 ng/L HIGH INTERMEDIATE RISK: >/=15 ng/L HIGH RISK: >/=88 ng/L or Delta >/=22 Tested at [facility] [address] [facility] [address] Performed By: #### H CROW #### Meg Rodas ([id number]) [facility] [address] [place] [address] ED PROV NOTEon 07-11-2024 ED PROV NOTE Supervisor [employer] Authentication Interface Message Text [facility] EMERGENCY DEPARTMENT ED Encounter Arrival Date: 07/11/24 2340 Viry Ramirez : 1975 No address on file. 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 Been in vehicle since this am. Tonight stopped for a drink and hot dog. Started driving again and began with CP. Pain radiates from chest to left arm. EMS found with 8/10 pain. NTG ASA given with no relief. Upon arrival in ER still 8/10. Slightly nauseated and no SOB. HPI Source: Patient HPI Viry Ramirez is a 48 year old female who presents chest pain. 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 Pain is left-sided going to her arm into her neck. States that occurred about 1 hour ago. She is brought in via EMS received aspirin and nitro prior to arrival. She rates her pain currently an 8 out of 10. Some nausea no vomiting. Some pain in her subxiphoid area but no real abdominal pain. Did recently eat a hot dog about an hour ago. No history of known coronary disease or thromboembolic disease. REVIEW OF SYSTEMS All other review of systems is negative besides what is stated in the history of present illness Review of Systems Constitutional: Negative for fever. HENT: Negative for sore throat. Eyes: Negative for redness. Respiratory: Negative for cough. Cardiovascular: Positive for chest pain. Gastrointestinal: Negative for abdominal pain. Genitourinary: Negative for flank pain. Musculoskeletal: Negative for neck pain. Skin: Negative for rash. Neurological: Negative for dizziness. PAST MEDICAL HISTORY Past Medical History: Diagnosis Date Celiac disease Hyperlipidemia SURGICAL HISTORY No past surgical history on file. CURRENT MEDICATIONS Prior to Admission medications Not on File ALLERGIES Allergies Allergen Reactions Meloxicam Shortness of Breath FAMILY HISTORY History reviewed. No pertinent family history. SOCIAL HISTORY Social History Socioeconomic History Marital status: Single Tobacco Use Smoking status: Every Day Types: Cigarettes Smokeless tobacco: Never Substance and Sexual Activity Alcohol use: Not Currently PHYSICAL EXAM VITAL SIGNS: BP 133/80 Pulse 73 Temp 96.6 F (35.9 C) (Temporal) Resp 20 Ht 62 (157.5 cm) Wt 78.9 kg (174 lb) SpO2 96% BMI 31.83 kg/m? Constitutional: Well developed, Well nourished. HENT: Normocephalic, Atraumatic. Neck: Normal range of motion Eyes: Conjunctiva normal, No discharge. Respiratory: Normal breath sounds, no wheezing, rales, or respiratory distress. Cardiovascular: Normal heart rate, Normal rhythm, No murmurs. GI: Soft, No tenderness, No masses, No pulsatile masses. Musculoskeletal: Intact distal pulses, No edema. Back: No tenderness, no CVA tenderness Integument: Warm, Dry, no rash Neurologic: Alert & answers questions appropriately moves all extremities ?4. Psychiatric: Affect normal, Judgment normal, Mood normal. EKG on my independent interpretation: EKG sinus rhythm rate of 70 normal axis normal intervals small Q wave in lead III no obvious ST elevation. Intepreted by Bobbi Torres MD LABORATORY Results for orders placed or performed during the hospital encounter of 07/11/24 (from the past 24 hour(s)) ECG 12 lead Result Value Ref Range Height in HEART RATE 70 bpm RR INTERVAL 857 ms ATRIAL RATE 70 ms P-R Interval 175 ms P Duration 107 ms P HORIZONTAL 11 deg P FRONT AXIS 65 deg Q Onset 508 ms QRSD Interval 84 ms QT INTERVAL 405 ms QTCB 437 ms QTcF 426 ms QRS Horizontal Volga 6 deg QRS AXIS 44 deg I-40 Horizontal Volga 78 deg I-40 FRONT AXIS 6 deg T-40 Horizontal Volga -13 deg T-40 Front Volga 89 deg T Horizontal Volga 21 deg T WAVE AXIS 34 deg S-T Horizontal Volga 77 deg S-T Front Volga 72 deg ECG IMPRESSION - NORMAL ECG - ECG IMPRESSION SR-Sinus rhythm-normal P axis, V-rate 50-99 ECG IMPRESSION QMBW-Baseline wander in lead(s) II,III,aVF- ECGGUID [id number] BAMP (Na,K,Cl,CO2,Glu,BUN,C reat,Ca) Result Value Ref Range BLD UREA NITROGEN 18 8 - 26 mg/dL SODIUM 140 135 - 145 mmol/L POTASSIUM 3.2 (L) 3.6 - 5.1 mmol/L CHLORIDE 107 98 - 111 mmol/L CO2 24 21 - 31 mmol/L GLUCOSE, RANDOM 141 (H) 70 - 99 mg/dL CREATININE 0.61 0.60 - 1.20 mg/dL ANION GAP 9 4 - 16 mmol/L CALCIUM 9.2 8.5 - 10.4 mg/dL ESTIMATED GFR 109 >59 mL/min/1.73 m2 CBC w/ Diff Result Value Ref Range WBC 8.7 3.6 - 10.5 THOU/mcL RBC 3.98 3.80 - 5.20 MIL/mcL HEMOGLOBIN 12.3 12.0 - 15.2 g/dL HEMATOCRIT 36.7 36 - 46 % MCV 92.0 82 - 97 fL MCH 30.9 27 - 33 pg MCHC 33.6 32 - 36 g/dL RDW 13.8 12.3 - 17.0 % PLATELET 338 140 - 375 THOU/mcL MPV 8.0 7.4 (more content not included)... Normal [facility] XR CHEST AP PORTABLEon 07-11 XR CHEST AP PORTABLE XR CHEST AP PORTABL E HISTORY: Chest pain Chest pain COMPARISON: None NOTE: If there are questions about the content of this report, please contact [facility] radiology by calling [phone] FINDINGS: LINES/DEVICES: Monitor leads overlie the chest LUNGS/PLEURA: Clear HEART: Normal heart size and pulmonary vascularity MEDIASTINUM/LUPE: Unremarkable BONES: The bony thorax appears grossly intact with no acute osseous abnormality detected OTHER: Slight rotation to the left IMPRESSION: No infiltrates or other acute cardiopulmonary disease detected. SIGNED BY: Yash Alcantara MD on 07/12/2024 12:37 AM 157.5 [phone] [facility] Imaging Report - Main Call Center - [facility] Call Center: Normal [facility] Mirror Maker Cytology Reporton 2023 Mirror Maker Cytology Report . Pathology Reports Accession: Collected Date/Time: Received Date/Time: Pathologist: [id number] 06/10/2024 10:30 EDT 06/10/2024 18:00 EDT Mirror Maker Cytology Report SPECIMEN: Specimen Description: Liquid Prep w/ HPV Specimen: Cervical/Endocervical Screening or Diagnostic: Screening RELEVANT HISTORY: LMP: na Post Menopausal: Yes SPECIMEN ADEQUACY: SATISFACTORY FOR EVALUATION Endocervical/Transform ational zone component present INTERPRETATION/RESULTS : NEGATIVE FOR INTRAEPITHELIAL LESION OR MALIGNANCY HIGH RISK HPV TESTING: Event Code Result HPV Interp See Interp HPVN HPV Interp Text: High Risk HPV Typing: NEGATIVE HPV types 16, 18, 31, 33, 35, 39, 45, 51, 52, 56, 58, 59, 66 and 68 DNA were undetectable or below the pre-set threshold. The denis High-Risk HPV DNA Test is not intended for use as a screening device for Pap normal women under age 30 and is not intended to substitute for regular Pap screening. The denis High-Risk HPV DNA Test is designed to augment existing methods for the detection of cervical disease and should be used in conjunction with clinical information derived from other diagnostic and screening tests, physical examinations and full medical history in accordance with appropriate patient management procedures. NOTE: A negative result does not preclude the presence of HPV infection because results depend on adequate specimen collection, absence of inhibitors and sufficient DNA to be detected. As of: 06/12/24 15:47 EDT COMMENT: This Pap Test was successfully processed and evaluated with the assistance of the [employer] ThinPrep Test Imaging System. Pathology Reports Accession: Collected Date/Time: Received Date/Time: Pathologist: [id number] 06/10/2024 10:30 EDT 06/10/2024 18:00 EDT Electronically Signed by Pathology report verified by [facility] Screened by: KK Electronically signed by Soledad OCONNELL (ASCP) Sign-Out Date: 06/12/2024 15:47 Performing Lab: [facility], [address] [place] [address] Pathology Dept Disclaimer The Pap test is a screening test for cervical cancer. As evidenced by published data, it is subject to both inherent false negative and false positive results. Your patient's results should be interpreted in context with pertinent clinical history including gynecological examination. Normal [facility] ([place] HPVon 06-12-2024 HPV Interp Normal See Inter HPVN [facility]) Comment on above: Order Comment: Order placed by AP_HPV_ORDER rule from [id number] Result Comment: High Risk HPV Typing: NEGATIVE HPV types 16, 18, 31, 33, 35, 39, 45, 51, 52, 56, 58, 59, 66 and 68 DNA were undetectable or below the pre-set threshold. The denis High-Risk HPV DNA Test is not intended for use as a screening device for Pap normal women under age 30 and is not intended to substitute for regular Pap screening. The denis High-Risk HPV DNA Test is designed to augment existing methods for the detection of cervical disease and should be used in conjunction with clinical information derived from other diagnostic and screening tests, physical examinations and full medical history in accordance with appropriate patient management procedures. NOTE: A negative result does not preclude the presence of HPV infection because results depend on adequate specimen collection, absence of inhibitors and sufficient DNA to be detected. See [facility] HPVN Performed By: #### R F, HCV1, SUDHAKAR, CORNELIA #### [place] [address] #### ADIFF, CBC, VIDH, LIPID, [id number], TSH, GFR, CMP, ANEU #### [place] [address] HPV Source Cervix Normal [facility]) Comment on above: Order Comment: Order placed by AP_HPV_ORDER rule from [id number] Performed By: #### R F, HCV1, SUDHAKAR, CORNELIA #### [place] [address] #### ADIFF, CBC, VIDH, LIPID, [id number], TSH, GFR, CMP, ANEU #### [place] [id number] LMERLYon 06-12-2024 Lyme Total Antibody NANCY Negative Normal Negative [facility]) Comment on above: Result Comment: Lyme antibodies not detected. Reflex testing is not indicated. No laboratory evidence of infection with B. burgdorferi (Lyme disease). Negative results may occur in patients recently infected (less than or equal to 14 days) with B. burgdorferi. If recent infection is suspected, repeat testing on a new sample collected in 7 to 14 days is recommended. Performed At: [facility] [id number] Cathi Delgadillo PhD Ph:[phone] Performed By: #### R F, HCV1, SUDHAKAR, CORNELIA #### [address] [address] #### ADIFF, CBC, VIDH, LIPID, [id number], TSH, GFR, CMP, ANEU #### [place] [address] [place], [place] [address] CKon 06-11-2024 CK [Catalytic activity/Vol] 34 U/L Normal 26-192 [facility] ([place] Comment on above: Performed By: #### R F, HCV1, SUDHAKAR, CORNELIA #### [place] [id number] #### ADIFF, CBC, VIDH, LIPID, [id number], TSH, GFR, CMP, ANEU #### [place] [address] [place], [place] [address] LABORATORYOrdered By: SYSTEM SYSTEM on 06-11-2024 CK [Catalytic activity/Vol] 34 U/L Normal 26 - 192 U/L AO ADM SS LABORATORYOrdered By: Noa Ibanez on 06-10-2024 HPV Interp High Risk HPV Typing : NEGATIVEHPV types 16, 18, 31, 33, 35, 39, 45, 51, 52, 56, 58, 59, 66 and 68 DNA wereundetectable or below the pre-set threshold.The denis High-Risk HPV DNA Test is not intended for use as a screening device forPap normal women under age 30 and is not intended to substitute for regular Papscreening.The denis High-Risk HPV DNA Test is designed to augment existing methods for thedetection of cervical disease and should be used in conjunction with clinicalinformation derived from other diagnostic and screening tests, physical examinationsand full medical history in accordance with appropriate patient managementprocedures.N OTE: A negative result does not preclude the presence of HPV infection because resultsdepend on adequate specimen collection, absence of inhibitors and sufficientDNA to be detected. Normal See Interp HPVN AH Auto Viro/Sero SS Specimen source Nom (Unsp spec) Cervix (06/10/24 10:30 AM) Normal AH Auto Viro/Sero SS MA MAMMOGRAM SCREENING BILAT ERAL W/TOMOon 05-22-2024 MA MAMMOGRAM SCREENING BILATERAL W/THOMAS [facility] [address], [place] [address] PROCEDURE FOR: VIRY JAY [address] [place] [address] Home: PID#: [id number] Exam#: [id number] : 1975 Age: 48 TO: CORRINA BARTLETT NP [place], [place] [address] EXAMINATION: SCREENING DIGITAL BILATERAL MAMMOGRAM WITH TOMOSYNTHESIS, 05/22/2024 2:39 pm TECHNIQUE: Screening mammography of the bilateral breasts was performed with tomosynthesis. 2D standard and 3D tomosynthesis combination imaging performed through both breasts in the MLO and CC projection. Computer aided detection was utilized in the interpretation of this exam. COMPARISON: None. Baseline exam. HISTORY: Breast cancer screening. FINDINGS: BREAST DENSITY: There are scattered areas of fibroglandular density. There is no suspicious mass, architectural distortion or microcalcification. IMPRESSION: No mammographic evidence of malignancy. Continued screening with annual mammograms is recommended. Luz Maria Dillardzick risk calculations, generated with the history provided, report this patient's 10 year risk and lifetime risk for developing breast cancer at 2.5% and 11.4%, respectively. Based on this assessment tool, if the patient's calculated lifetime risk is below 20%, then the patient is considered at average risk for developing breast cancer. If the patient's calculated lifetime risk is at or above 20%, then the patient is considered high risk for developing breast cancer and may be a candidate for supplemental breast MRI screening in addition to annual mammographic screening per the [employer]. 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 Vertebral body heights are preserved. No significant disc height loss or osseous spurring. Sacroiliac joints are symmetric. IMPRESSION: No acute finding or significant degenerative change. Interpreted by: Omkar Crain DO Preliminary Report By: Omkar Crain DO Electronically signed By Omkar Crain DO Dictated Date: 03/07/2024 3:40:35 PM Prelim Date: 03/07/2024 3:41:23 PM Sign Date: 03/07/2024 3:41:23 PM Ordering Provider: CORRINA Quan [facility] [place] .Auto Diffon 03-01-2024 Basophil, Absolute 0.0 10 3/mcL Normal 0.0-0.2 [facility] ([place]) Comment on above: Performed By: #### D FLAKO COLINDRESS, GFR, MG, CBC, ADIFF, CK, CMP, ANEU, MDW ####[address] [place], [place] [address] Basophils/100 WBC (Bld) 0.4 % Normal 0.0-2.5 [facility] [place] Comment on above: Performed By: #### D FLAKO COLINDRESS, GFR, MG, CBC, ADIFF, CK, CMP, ANEU, MDW ####[address] [place], [place] [address] Eosinophil, Absolute 0.2 10 3/mcL Normal 0.0-0.4 [facility] ([place]) Comment on above: Performed By: #### D BERNADINE, TROPHS, GFR, MG, CBC, ADIFF, CK, CMP, ANEU, TIFFANIE ####[address] [place], [place] [address] Eosinophils/100 WBC (Bld) 2.4 % Normal 0.0-7.0 [facility] [place] Comment on above: Performed By: #### D BERNADINE, TROPHS, GFR, MG, CBC, ADIFF, CK, CMP, ANEU, W ####[address] [place], [place] [address] Lymphocyte, Absolute 2.2 10 3/mcL Normal 0.8-3.9 [facility] ([place] Comment on above: Performed By: #### D BERNADINE, TROPHS, GFR, MG, CBC, ADIFF, CK, CMP, ANEU, W ####[address] [place], [place] [address] Lymphocytes/100 WBC (Bld) 30.7 % Normal 10.0-50.0 [facility] [place] Comment on above: Performed By: #### D BERNADINE, TROPHS, GFR, MG, CBC, ADIFF, CK, CMP, ANEUTIFFANIE ####[address] [place], [place] [address] Monocyte, Absolute 0.4 10 3/mcL Normal 0.2-1.0 [facility] ([place] Comment on above: Performed By: #### D BERNADINE, TROPHS, GFR, MG, CBC, ADIFF, CK, CMP, ANEU, TIFFANIE ####[address] [place], [place] [address] Monocytes/100 WBC (Bld) 5.4 % Normal 1.7-13.0 [facility] [place] Comment on above: Performed By: #### D BERNADINE, TROPHS, GFR, MG, CBC, ADIFF, CK, CMP, ANEU, W ####[address] [place], [place] [address] Neutrophils/100 WBC (Bld) 61.1 % Normal 37.0-80.0 [facility] [place] Comment on above: Performed By: #### D BERNADINE, TROPHS, GFR, MG, CBC, ADIFF, CK, CMP, ANEU, MDW ####[address] [place], [place] [address] .GFRon 03-01-2024 GFR 101 ml/min/1.73sqm Normal [facility] [place] Comment on above: Result Comment: GFR Population mean for , Non- Americans Ages 20-29 = 116 mL/min/1.73 sq.m. Ages 30-39 = 107 mL/min/1.73 sq.m. Ages 40-49 = 99 mL/min/1.73 sq.m. Ages 50-59 = 93 mL/min/1.73 sq.m. Ages 60-69 = 85 mL/min/1.73 sq.m. Ages 70+ = 75 mL/min/1.73 sq.m. Chronic Kidney Disease: Less than 60 mL/min/1.73 square meters End Stage Renal Disease: Less than 15 mL/min/1.73 square meters Performed By: #### R F, HCV1, SUDHAKAR, CORNELIA #### [place] [address] #### ADIFF, CBC, VIDH, LIPID, [id number], TSH, GFR, CMP, ANEU #### [place] [address] [place], [place] [address] GFR Non- 83 ml/min/1.73sqm Normal [facility] ([place] Comment on above: Result Comment: GFR Population mean for , Non- Americans Ages 20-29 = 116 mL/min/1.73 sq.m. Ages 30-39 = 107 mL/min/1.73 sq.m. Ages 40-49 = 99 mL/min/1.73 sq.m. Ages 50-59 = 93 mL/min/1.73 sq.m. Ages 60-69 = 85 mL/min/1.73 sq.m. Ages 70+ = 75 mL/min/1.73 sq.m. Chronic Kidney Disease: Less than 60 mL/min/1.73 square meters End Stage Renal Disease: Less than 15 mL/min/1.73 square meters Performed By: #### R F, HCV1, SUDHAKAR, CORNELIA #### [address] [address] #### ADIFF, CBC, VIDH, LIPID, [id number], TSH, GFR, CMP, ANEU #### [address] [address] .MDWon 03-01-2024 Monocyte Distribution Width 14.50 Normal 0.00-20.00 [facility] ([place] Comment on above: Result Comment: For ED adult patients suspected of sepsis, MDW<=20.0 does not rule out sepsis or risk of sepsis Performed By: #### R F, HCV1, SUDHAKAR, CORNELIA #### [place] [address] #### ADIFF, CBC, VIDH, LIPID, [id number], TSH, GFR, CMP, ANEU #### [address] [address] .NEUABSon 03-01-2024 Neutrophil, Absolute 4.3 10 3/mcL Normal 2.9-6.2 [facility] ([place] Comment on above: Performed By: #### D BERNADINE, TROPHS, GFR, MG, CBC, ADIFF, CK, CMP, ANEU, MDW ####[address] [address] .Urinalysis Microscopic (AO) on 03-01-2024 UA Bacteria Trace Abnormal [facility] ([place] Comment on above: Performed By: #### U A, UAMICAO ####[address] [place] [address] UA RBC 0-5 Abnormal None Seen [facility] ([place] Comment on above: Performed By: #### U A, UAMICAO ####[address] [place] [address] UA Renal Epithelial 0-5 Abnormal [facility] ([place] Comment on above: Performed By: #### U A, UAMICAO ####[address] [place] [address] UA Squam Epithelial 0-5 Abnormal None Seen [facility] ([place] Comment on above: Performed By: #### [place] UAMICAO ####[address] [place], [place] [address] UA WBC 0-5 Abnormal None Seen [facility] [place] Comment on above: Performed By: #### [place] UAMICAO ####[address] [place], [place] [address] CBCon 03-01-2024 Erythrocyte distribution width (RBC) [Ratio] 13.9 % Normal 11.5-14.5 [facility] [place] Comment on above: Performed By: #### Mya BERNADINE, TROPHS, GFR, MG, CBC, ADIFF, CK, CMP, ANEUTIFFANIE ####[address] [place], [place] [address] Hematocrit (Bld) [Volume fraction] 36.5 % Low 37.0-47.0 [facility] [place] Comment on above: Performed By: #### Mya BERNADINE, TROPHS, GFR, MG, CBC, ADIFF, CK, CMP, ANEU, TIFFANIE ####[address] [place], [place] [address] Hgb 12.7 G/dL Normal 12.0-16.0 [facility] [place] Comment on above: Performed By: #### Mya BERNADINE, TROPHS, GFR, MG, CBC, ADIFF, CK, CMP, ANEU, W ####[address] [place], [place] [address] MCH (RBC) [Entitic mass] 30.9 pg Normal 27.0-31.2 [facility] [place] Comment on above: Performed By: #### Mya BERNADINE, TROPHS, GFR, MG, CBC, ADIFF, CK, CMP, ANEU, W ####[address] [place], [place] [address] MCHC 34.7 G/dL Normal 33.0-37.0 [facility] [place] Comment on above: Performed By: #### Mya BERNADINE, TROPHS, GFR, MG, CBC, ADIFF, CK, CMP, ANEU, W ####[address] [place], [place] [address] MCV (RBC) [Entitic vol] 89.1 fL Normal 80.0-94.0 [facility] [place] Comment on above: Performed By: #### Mya BERNADINE, TROPHS, GFR, MG, CBC, ADIFF, CK, CMP, TIFFANIE POPE ####[address] [place], [place] [address] Platelet 312 10 3/mcL Normal 130-400 [facility] [place] Comment on above: Performed By: #### Mya BERNADINE, TROPHS, GFR, MG, CBC, ADIFF, CK, CMP, TIFFANIE POPE ####[address] [place], [place] [address] Platelet mean volume (Bld) [Entitic vol] 7.3 fL Low 7.4-10.4 [facility] [place] Comment on above: Performed By: #### Mya BERNADINE, TROPHS, GFR, MG, CBC, ADIFF, CK, CMP, TIFFANIE POPE ####[address] [place], [place] [address] RBC 4.10 10 6/mcL Low 4.20-5.40 [facility] [place] Comment on above: Performed By: #### Mya BERNADINE, TROPHS, GFR, MG, CBC, ADIFF, CK, CMP, TIFFANIE POPE ####[address] [place], [place] [address] WBC 7.0 10 3/mcL Normal 4.6-10.8 [facility] [place] Comment on above: Performed By: #### Mya BERNADINE, TROPHS, GFR, MG, CBC, ADIFF, CK, CMP, TIFFANIE POPE ####[address] [place], [place] [address] CKon 03-01-2024 CK [Catalytic activity/Vol] 56 U/L Normal 26-192 [facility] [place] Comment on above: Performed By: #### R F, HCV1, SUDHAKAR, CORNELIA #### [address] [address] #### ADIFF, CBC, VIDH, LIPID, [id number], TSH, GFR, CMP, ANEU #### [address] [address] CMPon 03-01-2024 Albumin Level 3.5 G/dL Normal 3.5-5.0 [facility] [place] Comment on above: Performed By: #### R F, HCV1, SUDHAKAR, CORNELIA #### [place] [address] #### ADIFF, CBC, VIDH, LIPID, [id number], TSH, GFR, CMP, ANEU #### [address] [address] Albumin/Globulin [Mass ratio] 1.0 {ratio} Low 1.1-2.5 [facility] [place] Comment on above: Performed By: #### R F, HCV1, SUDHAKAR, CORNELIA #### [place] [address] #### ADIFF, CBC, VIDH, LIPID, [id number], TSH, GFR, CMP, ANEU #### [address] [address] ALP [Catalytic activity/Vol] 91 U/L Normal 40-135 [facility] [place] Comment on above: Performed By: #### R F, HCV1, SUDHAKAR, CORNELIA #### [place] [address] #### ADIFF, CBC, VIDH, LIPID, [id number], TSH, GFR, CMP, ANEU #### [address] [address] ALT [Catalytic activity/Vol] 18 U/L Normal 14-59 [facility] [place] Comment on above: Performed By: #### R F, HCV1, SUDHAKAR, CORNELIA #### [place] [address] #### ADIFF, CBC, VIDH, LIPID, [id number], TSH, GFR, CMP, ANEU #### [address] [address] AST [Catalytic activity/Vol] 10 U/L Normal 10-40 [facility] [place] Comment on above: Performed By: #### R F, HCV1, SUDHAKAR, CORNELIA #### [place] [address] #### ADIFF, CBC, VIDH, LIPID, [id number], TSH, GFR, CMP, ANEU #### [address] [address] Bili Total 0.3 mg/dL Normal 0.2-1.0 [facility] [place] Comment on above: Result Comment: Use of this assay is not recommended for patients undergoing treatment with eltrombopag due to the potential for falsely elevated results. Performed By: #### R F, HCV1, SUDHAKAR, CORNELIA #### [place] [address] #### ADIFF, CBC, VIDH, LIPID, [id number], TSH, GFR, CMP, ANEU #### [address] [address] BUN/Creatinine Ratio 19 ratio Normal 7-27 [facility] ([place] Comment on above: Performed By: #### R F, HCV1, SUDHAKAR, CORNELIA #### [place] [address] #### ADIFF, CBC, VIDH, LIPID, [id number], TSH, GFR, CMP, ANEU #### [address] [address] Calcium [Mass/Vol] 9.5 mg/dL Normal 8.4-10.2 [facility] ([place] Comment on above: Performed By: #### R F, HCV1, SUDHAKAR, CORNELIA #### [place] [address] #### ADIFF, CBC, VIDH, LIPID, [id number], TSH, GFR, CMP, ANEU #### [address] [address] Chloride [Moles/Vol] 109 mmol/L High 98-107 [facility] ([place] Comment on above: Performed By: #### R F, HCV1, SUDHAKAR, CORNELIA #### [place] [address] #### ADIFF, CBC, VIDH, LIPID, [id number], TSH, GFR, CMP, ANEU #### [address] [address] CO2 [Moles/Vol] 29 mmol/L Normal 22-29 [facility] [place] Comment on above: Performed By: #### R F, HCV1, SUDHAKAR, CORNELIA #### [place] [address] #### ADIFF, CBC, VIDH, LIPID, [id number], TSH, GFR, CMP, ANEU #### [address] [address] Creatinine [Mass/Vol] 0.74 mg/dL Normal 0.55-1.02 [facility] ([place]) Comment on above: Performed By: #### R F, HCV1, SUDHAKAR, CORNELIA #### [place] [address] #### ADIFF, CBC, VIDH, LIPID, [id number], TSH, GFR, CMP, ANEU #### [address] [address] Electrolyte Balance 8.0 mEq/L Normal 4.0-15.0 [facility] ([place] Comment on above: Performed By: #### R F, HCV1, SUDHAKAR, CORNELIA #### [place] [address] #### ADIFF, CBC, VIDH, LIPID, [id number], TSH, GFR, CMP, ANEU #### [address] [address] Globulin 3.4 G/dL Normal [facility] ([place] Comment on above: Performed By: #### R F, HCV1, SUDHAKAR, CORNELIA #### [place] [address] #### ADIFF, CBC, VIDH, LIPID, [id number], TSH, GFR, CMP, ANEU #### [address] [address] Glucose [Mass/Vol] 104 mg/dL Normal 70-105 [facility] ([place] Comment on above: Performed By: #### R F, HCV1, SUDHAKAR, CORNELIA #### [place] [address] #### ADIFF, CBC, VIDH, LIPID, [id number], TSH, GFR, CMP, ANEU #### [address] [address] Potassium [Moles/Vol] 3.9 mmol/L Normal 3.5-5.1 [facility] ([place]) Comment on above: Performed By: #### R F, HCV1, SUDHAKAR, CORNELIA #### [place] [address] #### ADIFF, CBC, VIDH, LIPID, [id number], TSH, GFR, CMP, ANEU #### [address] [address] Sodium [Moles/Vol] 146 mmol/L High 136-145 [facility] ([place] Comment on above: Performed By: #### R F, HCV1, SUDHAKAR, CORNELIA #### [place] [address] #### ADIFF, CBC, VIDH, LIPID, [id number], TSH, GFR, CMP, ANEU #### [address] [address] Total Protein 6.9 G/dL Normal 6.4-8.2 [facility] ([place] Comment on above: Performed By: #### R F, HCV1, SUDHAKAR, CORNELIA #### [place] [address] #### ADIFF, CBC, VIDH, LIPID, [id number], TSH, GFR, CMP, ANEU #### [address] [address] Urea nitrogen [Mass/Vol] 14 mg/dL Normal 7-18 [facility] ([place] Comment on above: Performed By: #### R F, HCV1, SUDHAKAR, CORNELIA #### [place] [address] #### ADIFF, CBC, VIDH, LIPID, [id number], TSH, GFR, CMP, ANEU #### [address] [address] DIMERon 03-01-2024 D-Dimer <200 Normal 0-230 [facility] ([place] Comment on above: Result Comment: DDN: Results reported in D-DU ng/mL. Negative for D-dimer. DVT/PE is highly unlikely. Note: False negative results may be seen in patients on anticoagulant therapy. The result of the D-Dimer test should be evaluated in the context of all the clinical and laboratory data available. In those instances where the laboratory result does not agree with the clinical evaluation, additional tests should be performed accordingly. If the D-Dimer result is used to exclude DVT or PE, the recommended cutoff value is less than 230 ng/mL. The D-Dimer result should not be used alone to rule in DVT/PE, but should be used in conjunction with a clinical pretest probability (PTP)assessment model to exclude venous thromboembolism (VTE) in outpatients suspected of deep venous thrombosis (DVT) and pulmonary embolism (PE). Performed By: #### R F, HCV1, SUDHAKAR, CORNELIA #### [place] [address] #### ADIFF, CBC, VIDH, LIPID, [id number], TSH, GFR, CMP, ANEU #### [place] [address] [place], [place] [address] LABORATORYOrdered By: SYSTEM SYSTEM on 03-01-2024 Albumin BCP dye [Mass/Vol] 3.5 G/dL Normal 3.5 - 5.0 G/dL AO ADM SS Albumin/Globulin [Mass ratio] 1.0 {ratio} Low 1.1 - 2.5 ratio AO ADM SS ALP [Catalytic activity/Vol] 91 U/L Normal 40 - 135 U/L AO ADM SS ALT With P-5'-P [Catalytic activity/Vol] 18 U/L Normal 14 - 59 U/L AO ADM SS AST With P-5'-P [Catalytic activity/Vol] 10 U/L Normal 10 - 40 U/L AO ADM SS Basophil, Absolute 0.0 103/mcL Normal 0.0 - 0.2 10^3/mcL AO Workflow SS Basophils/100 WBC (Bld) 0.4 % Normal 0.0 - 2.5 % AO Workflow SS Bilirubin [Mass/Vol] 0.3 mg/dL Normal 0.2 - 1 .0 mg/dL AO ADM SS Comment on above: Interpretive Data: U se of this assay is not recommended for patients undergoing treatment with eltrombopag due to the potential for falsely elevated results. Calcium [Mass/Vol] 9.5 mg/dL Normal 8.4 - 10. 2 mg/dL AO ADM SS Chloride [Moles/Vol] 109 mmol/L High 98 - 10 7 mmol/L AO ADM SS CK [Catalytic activity/Vol] 56 U/L Normal 26 - 192 U/L AO ADM SS CO2 [Moles/Vol] 29 mmol/L Normal 22 - 29 mmol/L AO ADM SS Creatinine [Mass/Vol] 0.74 mg/dL Normal 0.55 - 1.02 mg/dL AO ADM SS Electrolyte Balance 8.0 mEq/L Normal 4.0 - 15 .0 mEq/L AO ADM SS Eosinophil, Absolute 0.2 103/mcL Normal 0.0 - 0 .4 10^3/mcL AO Workflow SS Eosinophils/100 WBC (Bld) 2.4 % Normal 0.0 - 7.0 % AO Workflow SS Erythrocyte distribution width (RBC) [Ratio] 13.9 % Normal 11.5 - 14.5 % AO Workflow SS GFR/1.73 sq M.predicted among blacks MDRD (S/P/Bld) [Vol rate/Area] 101 ml/min/1.73sqm Invalid Interpretation Code AO Chemistry S Comment on above: Interpretive Data: GFR Population mean for , Non- Americans Ages 20-29 = 116 mL/min/1.73 sq.m. Ages 30-39 = 107 mL/min/1.73 sq.m. Ages 40-49 = 99 mL/min/1.73 sq.m. Ages 50-59 = 93 mL/min/1.73 sq.m. Ages 60-69 = 85 mL/min/1.73 sq.m. Ages 70+ = 75 mL/min/1.73 sq.m. Chronic Kidney Disease: Less than 60 mL/min/1.73 square meters End Stage Renal Disease: Less than 15 mL/min/1.73 square meters GFR/1.73 sq M.predicted among non-blacks MDRD (S/P/Bld) [Vol rate/Area] 83 ml/min/1.73sqm Invalid Interpretation Code AO Chemistry S Comment on above: Interpretive Data: GFR Population mean for , Non- Americans Ages 20-29 = 116 mL/min/1.73 sq.m. Ages 30-39 = 107 mL/min/1.73 sq.m. Ages 40-49 = 99 mL/min/1.73 sq.m. Ages 50-59 = 93 mL/min/1.73 sq.m. Ages 60-69 = 85 mL/min/1.73 sq.m. Ages 70+ = 75 mL/min/1.73 sq.m. Chronic Kidney Disease: Less than 60 mL/min/1.73 square meters End Stage Renal Disease: Less than 15 mL/min/1.73 square meters Globulin 3.4 G/dL Invalid Interpretation Code AO ADM SS Glucose [Mass/Vol] 104 mg/dL Normal 70 - 105 mg/dL AO ADM SS Hematocrit (Bld) [Volume fraction] 36.5 % Low 37.0 - 47.0 % AO Workflow SS Hemoglobin (Bld) [Mass/Vol] 12.7 G/dL Normal 12.0 - 16.0 G/dL AO Workflow SS Lymphocyte, Absolute 2.2 103/mcL Normal 0.8 - 3 .9 10^3/mcL AO Workflow SS Lymphocytes/100 WBC (Bld) 30.7 % Normal 10.0 - 50.0 % AO Workflow SS Magnesium [Mass/Vol] 2.0 mg/dL Normal 1.8 - 2 .4 mg/dL AO ADM SS MCH (RBC) [Entitic mass] 30.9 pg Normal 27.0 - 31.2 pg AO Workflow SS MCHC 34.7 G/dL Normal 33.0 - 37.0 G/dL AO Workflow SS MCV (RBC) [Entitic vol] 89.1 fL Normal 80.0 - 94.0 fL AO Workflow SS Monocyte distribution width Auto (Bld) [Entitic vol] 14.50 1 Normal 0.00 - 20.00 AO Workflow SS Comment on above: Result Comment: For ED adult patients suspected of sepsis, MDW<=20.0 does not rule out sepsis or risk of sepsis Monocyte, Absolute 0.4 103/mcL Normal 0.2 - 1.0 10^3/mcL AO Workflow SS Monocytes/100 WBC (Bld) 5.4 % Normal 1.7 - 13.0 % AO Workflow SS Neutrophil, Absolute 4.3 103/mcL Normal 2.9 - 6 .2 10^3/mcL AO Workflow SS Neutrophils/100 WBC (Bld) 61.1 % Normal 37.0 - 80.0 % AO Workflow SS Platelet mean volume (Bld) [Entitic vol] 7.3 fL Low 7.4 - 10.4 fL AO Workflow SS Platelets (Bld) [#/Vol] 312 103/mcL Normal 130 - 400 10^3/mcL AO Workflow SS Potassium [Moles/Vol] 3.9 mmol/L Normal 3.5 - 5.1 mmol/L AO ADM SS Protein [Mass/Vol] 6.9 G/dL Normal 6.4 - 8.2 G/dL AO ADM SS RBC (Bld) [#/Vol] 4.10 106/mcL Low 4.20 - 5.4 0 10^6/mcL AO Workflow SS Sodium [Moles/Vol] 146 mmol/L High 136 - 145 mmol/L AO ADM SS Troponin I.cardiac DL <= 0.01 ng/mL [Mass/Vol] ng/L Normal 0 - 51 ng/L AO ADM SS Comment on above: Interpretive Data: H igh Sensitive Troponin I Reference Ranges: Female: 0-51 ng/L Male: 0-76 ng/L Testing performed on Nut[employer]vie[employer] using a homogeneous sandwich chemiluminescent immunoassay based on [employer] technology. Urea nitrogen [Mass/Vol] 14 mg/dL Normal 7 - 18 mg/dL AO ADM SS Urea nitrogen/Creatinine [Mass ratio] 19 ratio Normal 7 - 27 ratio AO ADM SS WBC (Bld) [#/Vol] 7.0 103/mcL Normal 4.6 - 10.8 10^3/mcL AO Workflow SS LABORATORYOrdered By: Michelle Moore on 03-01-2024 Appearance (U) Slightly Cloudy *ABN* (03/01/24 12:51 AM) Invalid Interpretation Code Clear AO Auto Urine SS Bacteria LM.HPF (Urine sed) [#/Area] Trace /HPF Invalid Interpretation Code AO Auto Urine SS Bilirubin Ql (U) Negative (03/01/24 12:51 AM) Normal Negative AO Auto Urine SS Color (U) Yellow (03/01/24 12:51 AM) Normal AO Auto Urine SS Fibrin D-dimer DDU (PPP) [Mass/Vol] ng/mL D-DU Normal 0 - 230 ng/mL D-DU AO HemoHub SS Comment on above: Result Comment: DDN: Results reported in D-DU ng/mL. Negative for D-dimer. DVT/PE is highly unlikely. Note: False negative results may be seen in patients on anticoagulant therapy. Interpretive Data: T he result of the D-Dimer test should be evaluated in the context of all the clinical and laboratory data available. In those instances where the laboratory result does not agree with the clinical evaluation, additional tests should be performed accordingly. If the D-Dimer result is used to exclude DVT or PE, the recommended cutoff value is less than 230 ng/mL. The D-Dimer result should not be used alone to rule in DVT/PE, but should be used in conjunction with a clinical pretest probability (PTP)assessment model to exclude venous thromboembolism (VTE) in outpatients suspected of deep venous thrombosis (DVT) and pulmonary embolism (PE). Glucose Test strip (U) [Mass/Vol] Negative Normal Negative AO Auto Urine SS Hemoglobin Auto test strip (U) [Mass/Vol] Trace *ABN* (03/01/24 12:51 AM) Invalid Interpretation Code Negative AO Auto Urine SS Ketones Ql (U) Negative Normal Negative AO Auto Ur ine SS UA Leuk Est Trace *ABN* (03/01/24 12:51 AM) Invalid Interpretation Code Negative AO Auto Urine SS UA Nitrite Negative (03/01/24 12:51 AM) Normal Negative AO Auto Urine SS UA pH 6.0 (03/01/24 12:51 AM) Normal 5.0 - 8.0 AO Auto Urine SS UA Protein Negative Normal Negative AO Auto Urine SS UA RBC 0-5 /HPF Invalid Interpretation Code None Seen AO Auto Urine SS UA Renal Epithelial 0-5 /HPF Invalid Interpretation Code AO Auto Urine SS UA Spec Grav >=1.030 *ABN* (03/01/24 12:51 AM) Invalid Interpretation Code 1.015-1.025 AO Auto Urine SS UA Specimen Type Clean Catch (03/01/24 12:51 AM) Normal AO Auto Urine SS UA Squam Epithelial 0-5 /HPF Invalid Interpretation Code None Seen AO Auto Urine SS UA Urobilinogen 0.2 E.U./dL Normal 0.2-1.0 AO Auto Urine SS WBC LM.HPF (Urine sed) [#/Area] 0-5 /HPF Invalid Interpretation Code None Seen AO Auto Urine SS MGon 03-01-2024 Magnesium [Mass/Vol] 2.0 mg/dL Normal 1.8-2.4 [facility] ([place]) Comment on above: Performed By: #### R F, HCV1, SUDHAKAR, CORNELIA #### [place] [address] #### ADIFF, CBC, VIDH, LIPID, [id number], TSH, GFR, CMP, ANEU #### [address] [place] [address] [place], [place] [address] TROPHSon 03-01-2024 High Sensitivity Troponin I <4 Normal 0-51 [facility] ([place]) Comment on above: Result Comment: High Sensitive Troponin I Reference Ranges: Female: 0-51 ng/L Male: 0-76 ng/L Testing performed on Nut[employer] using a homogeneous sandwich chemiluminescent immunoassay based on [employer] technology. Performed By: #### R F, HCV1, SUDHAKAR, CORNELIA #### [place] [address] #### ADIFF, CBC, VIDH, LIPID, [id number], TSH, GFR, CMP, ANEU #### [address] [address] UAon 03-01-2024 Color (U) Yellow Normal [facility] ([place]) Comment on above: Performed By: #### U A, UAMICAO ####[address] [place], [place] [address] Glucose (U) [Mass/Vol] Negative Normal Negative [facility] ([place]) Comment on above: Performed By: #### U A, UAMICAO ####[address] [place], [place] [address] Ketones Ql (U) Negative Normal Negative [facility] ([place] Comment on above: Performed By: #### U A, UAMICAO ####[address] [place], [place] [address] UA Appear Slightly Cloudy Abnormal Clear [facility] ([place] Comment on above: Performed By: #### U A, UAMICAO ####[address] [place] [address] UA Blood Trace Abnormal Negative [facility] ([place]) Comment on above: Performed By: #### U A, UAMICAO ####[address] [place], [place] [address] UA Leuk Est Trace Abnormal Negative [facility] ([place] Comment on above: Performed By: #### U A, UAMICAO ####[address] [place] [address] UA Nitrite Negative Normal Negative [facility] ([place] Comment on above: Performed By: #### U A, UAMICAO ####[address] [place] [address] UA pH 6.0 Normal 5.0 - 8.0 [facility] ([place] Comment on above: Performed By: #### U A, UAMICAO ####[address] [place] [address] UA Protein Negative Normal Negative [facility] ([place] Comment on above: Performed By: #### U A, UAMICAO ####[address] [place] [address] UA Spec Grav >=1.030 Abnormal 1.015-1.025 [facility] ([place] Comment on above: Performed By: #### U A, UAMICAO ####[address] [place], [place] [address] UA Specimen Type Clean Catch Normal [facility] ([place] Comment on above: Performed By: #### U A, UAMICAO ####[address] [place] [address] UA Urobilinogen 0.2 E.U./dL Normal 0.2-1.0 [facility] ([place] Comment on above: Performed By: #### U A, UAMICAO ####[address] [place] [address] Urobilinogen (U) [Mass/Vol] Negative Normal Negative [facility] ([place] Comment on above: Performed By: #### U A, UAMICAO ####[address] [place], [place] [address] XR CHEST 1 VIEWon 03-01-2024 XR CHEST 1 VIEW ORIGINAL EXAMINATION: ONE XRAY VIEW OF THE CHEST 03/01/2024 12:48 am COMPARISON: None. HISTORY: ORDERING SYSTEM PROVIDED HISTORY: Reason for Exam: Shortness of breath, BLE swelling. chest pain FINDINGS: The cardiomediastinal silhouette appears normal. There is no focal consolidation. There is no pulmonary edema. There is no evidence of pleural effusion. There is no evidence of pneumothorax. No fracture is identified. IMPRESSION: No acute abnormality is identified. Interpreted by: Ar Ellis Preliminary Report By: Ar Ellis Electronically signed By Ar Ellis Dictated Date: 03/01/2024 12:55:37 AM Prelim Date: 03/01/2024 12:56:07 AM Sign Date: 03/01/2024 12:56:07 AM Ordering Provider: BOBBI LOMELI [facility] ([place]) XR HIP 2-3 VIEWS RIGHTon XR HIP 2-3 VIEWS RIGHT ORIGINAL EXAMINATION: 2 XRAY VIEWS OF THE RIGHT HIP 02/08/2024 3:45 pm COMPARISON: None. HISTORY: ORDERING SYSTEM PROVIDED HISTORY: Reason for Exam: right hip pain FINDINGS: No acute fracture or dislocation is identified. The joint space is maintained. Enthesophytes seen at the right greater trochanter. IMPRESSION: No acute fracture or dislocation. Interpreted by: Bartolo Coon MD Preliminary Report By: Bartolo Coon MD Electronically signed By Bartolo Coon MD Dictated Date: 02/09/2024 10:32:43 AM Prelim Date: 02/09/2024 10:33:12 AM Sign Date: 02/09/2024 10:33:12 AM Ordering Provider: CORRINA BARTLETT [facility] ([place]) Enedina 01-19-2024 Deasouth Mata IgA Abs 7 units Normal 0-19 [facility] ([place]) Comment on above: Result Comment: Nega tive 0 - 19 Weak Positive 20 - 30 Moderate to Strong Positive >30 Performed By: #### R F, HCV1, SUDHAKAR, CORNELIA ####[place] [address]#### ADIFF, CBC, VIDH, LIPID, [id number], TSH, GFR, CMP, ANEU ####[facility] [place], [place] [address] Deam Gliad IgG Abs 2 units Normal 0-19 [facility] ([place]) Comment on above: Result Comment: Nega tive 0 - 19 Weak Positive 20 - 30 Moderate to Strong Positive >30 Performed By: #### R F, HCV1, SUDHAKAR, CORNELIA ####[place] [address]#### ADIFF, CBC, VIDH, LIPID, [id number], TSH, GFR, CMP, ANEU ####[facility] [place], [place] [address] Endomysial IgA Ab Negative Normal Negative [facility] ([place] Comment on above: Performed By: #### R F, HCV1, SUDHAKAR, CORNELIA ####[place] [address]#### ADIFF, CBC, VIDH, LIPID, [id number], TSH, GFR, CMP, ANEU ####[place] [address] [place], [place] [address] IgA [Mass/Vol] 140 mg/dL Normal 87-352 [facility] ([place] Comment on above: Result Comment: Perf ormed At: [facility] [address] [id number] Cathi Delgadillo PhD Ph:[phone] Performed By: #### R F, HCV1, SUDHAKAR, CORNELIA ####[place] [address]#### ADIFF, CBC, VIDH, LIPID, [id number], TSH, GFR, CMP, ANEU ####[facility] [place], [place] [address] tTG IgA <2 Normal 0-3 [facility] ([place] Comment on above: Result Comment: Nega tive 0 - 3 Weak Positive 4 - 10 Positive >10 Tissue Transglutaminase (tTG) has been identified as the endomysial antigen. Studies have demonstr- ated that endomysial IgA antibodies have over 99% specificity for gluten sensitive enteropathy. Performed By: #### R F, HCV1, SUDHAKAR, CORNELIA ####[address] [address]#### ADIFF, CBC, VIDH, LIPID, [id number], TSH, GFR, CMP, ANEU ####[place] [address] tTG IgG 6 units/ml High 0-5 [facility] ([place] Comment on above: Result Comment: Nega tive 0 - 5 Weak Positive 6 - 9 Positive >9 Performed By: #### R F, HCV1, SUDHAKAR, CORNELIA ####[place] [address]#### ADIFF, CBC, VIDH, LIPID, [id number], TSH, GFR, CMP, ANEU ####[address] [address] .ANATon 01-18-2024 SUDHAKAR Pattern 1 Speckled Normal [facility] ([place] Comment on above: Result Comment: At A [facility], an SUDHAKAR titer of 160 or greater suggests connective tissue disease but should not be considered diagnostic. The SUDHAKAR result should be considered in combination with other serological results and the clinical history of the patient. SPECKLED: Suggests the following diseases: Mixed Connective Tissue Disease (MCTD), Systemic Lupus Erythematosis (SLE), CREST variant of Progressive Systemic Sclerosis (PSS) or Sjogren's Syndrome. SUPPLEMENTAL TESTS: Extractable Nuclear Antibody (CHUY) which includes SM Ab (SLE), CHIEF NURSING OFFICER Ab (MCTD) and SSA and SSB (Sjogren's Syndrome); Complement C3 C4. Performed By: #### R F, HCV1, SUDHAKAR, CORNELIA ####[place] [address]#### ADIFF, CBC, VIDH, LIPID, [id number], TSH, GFR, CMP, ANEU ####[place] [address] [place] [address] SUDHAKAR Titer 1 160 Normal [facility] ([place] Comment on above: Performed By: #### R F, HCV1, SUDHAKAR, CORNELIA ####[place] [address]#### ADIFF, CBC, VIDH, LIPID, [id number], TSH, GFR, CMP, ANEU ####[facility] [place], [place] [address] ANAon 01-18-2024 SUDHAKAR See Titer Normal Neg 40 [facility] ([place] Comment on above: Result Comment: SUDHAKAR Screen and Titer methodology is an immunofluorescent technique utilizing Hep2 Substrate. Performed By: #### R F, HCV1, SUDHAKAR, CORNELIA ####[place] [address]#### ADIFF, CBC, VIDH, LIPID, [id number], TSH, GFR, CMP, ANEU ####[address] [address] RFon 01-18-2024 Rheumatoid Factor 8.1 High <=5.9 [facility] ([place] Comment on above: Result Comment: RF I gM Antibody by Enzyme Immunoassay: Negative < or = 6 Positive > 6 A positive result indicates the presence of RF antibodies and suggests the possibility of rheumatoid arthritis. A negative result indicates no RF IgM antibody or levels below the negative cut-off of the assay. Results of this assay should be used in conjunction with clinical findings and other serological tests. These results were obtained with the Ofelia Feliz QUANTA Lite RF IgM NIGEL. RF IgM values obtained with different manufacturers' assay methods may not be used interchangeably. The magnitude of the reported IgM levels cannot be correlated to an endpoint titer. Performed By: #### R F, HCV1, SUDHAKAR, CORNELIA ####[place] [address]#### ADIFF, CBC, VIDH, LIPID, [id number], TSH, GFR, CMP, ANEU ####[address] [address] .Auto Diffon 01-17-2024 Basophil, Absolute 0.1 10 3/mcL Normal 0.0-0.2 [facility] ([place]) Comment on above: Performed By: #### R F, HCV1, SUDHAKAR, CORNELIA #### [place] [id number] [place] [address] #### ADIFF, CBC, VIDH, LIPID, [id number], TSH, GFR, CMP, ANEU #### [address] [address] Basophils/100 WBC (Bld) 0.6 % Normal 0.0-2.5 [facility] ([place] Comment on above: Performed By: #### R F, HCV1, SUDHAKAR, CORNELIA #### [place] [address] #### ADIFF, CBC, VIDH, LIPID, [id number], TSH, GFR, CMP, ANEU #### [address] [address] Eosinophil, Absolute 0.2 10 3/mcL Normal 0.0-0.4 [facility] ([place]) Comment on above: Performed By: #### R F, HCV1, SUDHAKAR, CORNELIA #### [place] [address] #### ADIFF, CBC, VIDH, LIPID, [id number], TSH, GFR, CMP, ANEU #### [address] [address] Eosinophils/100 WBC (Bld) 2.9 % Normal 0.0-7.0 [facility] ([place]) Comment on above: Performed By: #### R F, HCV1, SUDHAKAR, CORNELIA #### [place] [address] #### ADIFF, CBC, VIDH, LIPID, [id number], TSH, GFR, CMP, ANEU #### [address] [address] Lymphocyte, Absolute 2.8 10 3/mcL Normal 0.8-3.9 [facility] ([place]) Comment on above: Performed By: #### R F, HCV1, SUDHAKAR, CORNELIA #### [place] [address] #### ADIFF, CBC, VIDH, LIPID, [id number], TSH, GFR, CMP, ANEU #### [address] [address] Lymphocytes/100 WBC (Bld) 32.5 % Normal 10.0-50.0 [facility] ([place] Comment on above: Performed By: #### R F, HCV1, SUDHAKAR, CORNELIA #### [place] [address] #### ADIFF, CBC, VIDH, LIPID, [id number], TSH, GFR, CMP, ANEU #### [address] [address] Monocyte, Absolute 0.3 10 3/mcL Normal 0.2-1.0 [facility] ([place]) Comment on above: Performed By: #### R F, HCV1, SUDHAKAR, CORNELIA #### [place] [address] #### ADIFF, CBC, VIDH, LIPID, [id number], TSH, GFR, CMP, ANEU #### [address] [address] Monocytes/100 WBC (Bld) 3.8 % Normal 1.7-13.0 [facility] ([place] Comment on above: Performed By: #### R F, HCV1, SUDHAKAR, CORNELIA #### [place] [address] #### ADIFF, CBC, VIDH, LIPID, [id number], TSH, GFR, CMP, ANEU #### [address] [address] Neutrophils/100 WBC (Bld) 60.2 % Normal 37.0-80.0 [facility] ([place] Comment on above: Performed By: #### R F, HCV1, SUDHAKAR, CORNELIA #### [place] [address] #### ADIFF, CBC, VIDH, LIPID, [id number], TSH, GFR, CMP, ANEU #### [address] [address] .GFRon 01-17-2024 GFR Non- 90 ml/min/1.73sqm Normal [facility] ([place] Comment on above: Result Comment: GFR Population mean for , Non- Americans Ages 20-29 = 116 mL/min/1.73 sq.m. Ages 30-39 = 107 mL/min/1.73 sq.m. Ages 40-49 = 99 mL/min/1.73 sq.m. Ages 50-59 = 93 mL/min/1.73 sq.m. Ages 60-69 = 85 mL/min/1.73 sq.m. Ages 70+ = 75 mL/min/1.73 sq.m. Chronic Kidney Disease: Less than 60 mL/min/1.73 square meters End Stage Renal Disease: Less than 15 mL/min/1.73 square meters Performed By: #### R F, HCV1, SUDHAKAR, CORNELIA #### [place] [address] #### ADIFF, CBC, VIDH, LIPID, [id number], TSH, GFR, CMP, ANEU #### [address] [address] GFR 110 ml/min/1.73sqm Normal [facility] ([place] Comment on above: Result Comment: GFR Population mean for , Non- Americans Ages 20-29 = 116 mL/min/1.73 sq.m. Ages 30-39 = 107 mL/min/1.73 sq.m. Ages 40-49 = 99 mL/min/1.73 sq.m. Ages 50-59 = 93 mL/min/1.73 sq.m. Ages 60-69 = 85 mL/min/1.73 sq.m. Ages 70+ = 75 mL/min/1.73 sq.m. Chronic Kidney Disease: Less than 60 mL/min/1.73 square meters End Stage Renal Disease: Less than 15 mL/min/1.73 square meters Performed By: #### R F, HCV1, SUDHAKAR, CORNELIA #### [place] [address] #### ADIFF, CBC, VIDH, LIPID, [id number], TSH, GFR, CMP, ANEU #### [address] [address] .NEUABSon 01-17-2024 Neutrophil, Absolute 5.1 10 3/mcL Normal 2.9-6.2 [facility] ([place]) Comment on above: Performed By: #### R F, HCV1, SUDHAKAR, CORNELIA #### [place] [address] #### ADIFF, CBC, VIDH, LIPID, [id number], TSH, GFR, CMP, ANEU #### [address] [address] CBCon 01-17-2024 Erythrocyte distribution width (RBC) [Ratio] 13.6 % Normal 11.5-14.5 [facility] ([place] Comment on above: Performed By: #### R F, HCV1, SUDHAKAR, CORNELIA #### [place] [address] #### ADIFF, CBC, VIDH, LIPID, [id number], TSH, GFR, CMP, ANEU #### [address] [address] Hematocrit (Bld) [Volume fraction] 36.7 % Low 37.0-47.0 [facility] ([place] Comment on above: Performed By: #### R F, HCV1, SUDHAKAR, CORNELIA #### [place] [address] #### ADIFF, CBC, VIDH, LIPID, [id number], TSH, GFR, CMP, ANEU #### [address] [address] Hgb 12.4 G/dL Normal 12.0-16.0 [facility] ([place] Comment on above: Performed By: #### R F, HCV1, SUDHAKAR, CORNELIA #### [place] [address] #### ADIFF, CBC, VIDH, LIPID, [id number], TSH, GFR, CMP, ANEU #### [address] [address] MCH (RBC) [Entitic mass] 30.4 pg Normal 27.0-31.2 [facility] ([place] Comment on above: Performed By: #### R F, HCV1, SUDHAKAR, CORNELIA #### [place] [address] #### ADIFF, CBC, VIDH, LIPID, [id number], TSH, GFR, CMP, ANEU #### [address] [address] MCHC 33.7 G/dL Normal 33.0-37.0 [facility] ([place] Comment on above: Performed By: #### R F, HCV1, SUDHAKAR, CORNELIA #### [place] [address] #### ADIFF, CBC, VIDH, LIPID, [id number], TSH, GFR, CMP, ANEU #### [address] [address] MCV (RBC) [Entitic vol] 90.2 fL Normal 80.0-94.0 [facility] ([place] Comment on above: Performed By: #### R F, HCV1, SUDHAKAR, CORNELIA #### [place] [address] #### ADIFF, CBC, VIDH, LIPID, [id number], TSH, GFR, CMP, ANEU #### [address] [address] Platelet 290 10 3/mcL Normal 130-400 [facility] ([place] Comment on above: Performed By: #### R F, HCV1, SUDHAKAR, CORNELIA #### [place] [address] #### ADIFF, CBC, VIDH, LIPID, [id number], TSH, GFR, CMP, ANEU #### [address] [address] Platelet mean volume (Bld) [Entitic vol] 8.5 fL Normal 7.4-10.4 [facility] ([place] Comment on above: Performed By: #### R F, HCV1, SUDHAKAR, CORNELIA #### [place] [address] #### ADIFF, CBC, VIDH, LIPID, [id number], TSH, GFR, CMP, ANEU #### [address] [address] RBC 4.07 10 6/mcL Low 4.20-5.40 [facility] ([place] Comment on above: Performed By: #### R F, HCV1, SUDHAKAR, CORNELIA #### [place] [address] #### ADIFF, CBC, VIDH, LIPID, [id number], TSH, GFR, CMP, ANEU #### [address] [address] WBC 8.5 10 3/mcL Normal 4.6-10.8 [facility] ([place] Comment on above: Performed By: #### R F, HCV1, SUDHAKAR, CORNELIA #### [place] [address] #### ADIFF, CBC, VIDH, LIPID, [id number], TSH, GFR, CMP, ANEU #### [address] [address] CMPon 01-17-2024 Albumin Level 3.6 G/dL Normal 3.5-5.0 [facility] ([place] Comment on above: Performed By: #### R F, HCV1, SUDHAKAR, CORNELIA #### [place] [address] #### ADIFF, CBC, VIDH, LIPID, [id number], TSH, GFR, CMP, ANEU #### [address] [address] Albumin/Globulin [Mass ratio] 1.1 {ratio} Normal 1.1-2.5 [facility] ([place] Comment on above: Performed By: #### R F, HCV1, SUDHAKAR, CORNELIA #### [place] [address] #### ADIFF, CBC, VIDH, LIPID, [id number], TSH, GFR, CMP, ANEU #### [address] [address] ALP [Catalytic activity/Vol] 96 U/L Normal 40-135 [facility] ([place] Comment on above: Performed By: #### R F, HCV1, SUDHAKAR, CORNELIA #### [place] [address] #### ADIFF, CBC, VIDH, LIPID, [id number], TSH, GFR, CMP, ANEU #### [address] [address] ALT [Catalytic activity/Vol] 18 U/L Normal 14-59 [facility] ([place] Comment on above: Performed By: #### R F, HCV1, SUDHAKAR, CORNELIA #### [place] [address] #### ADIFF, CBC, VIDH, LIPID, [id number], TSH, GFR, CMP, ANEU #### [address] [address] AST [Catalytic activity/Vol] 9 U/L Low 10-40 [facility] ([place] Comment on above: Performed By: #### R F, HCV1, SUDHAKAR, CORNELIA #### [place] [address] #### ADIFF, CBC, VIDH, LIPID, [id number], TSH, GFR, CMP, ANEU #### [address] [address] Bili Total 0.4 mg/dL Normal 0.2-1.0 [facility] ([place]) Comment on above: Result Comment: Use of this assay is not recommended for patients undergoing treatment with eltrombopag due to the potential for falsely elevated results. Performed By: #### R F, HCV1, SUDHAKAR, CORNELIA #### [place] [address] #### ADIFF, CBC, VIDH, LIPID, [id number], TSH, GFR, CMP, ANEU #### [address] [address] BUN/Creatinine Ratio 16 ratio Normal 7-27 [facility] ([place]) Comment on above: Performed By: #### R F, HCV1, SUDHAKAR, CORNELIA #### [place] [address] #### ADIFF, CBC, VIDH, LIPID, [id number], TSH, GFR, CMP, ANEU #### [address] [address] Calcium [Mass/Vol] 9.2 mg/dL Normal 8.4-10.2 [facility] ([place]) Comment on above: Performed By: #### R F, HCV1, SUDHAKAR, CORNELIA #### [place] [address] #### ADIFF, CBC, VIDH, LIPID, [id number], TSH, GFR, CMP, ANEU #### [address] [address] Chloride [Moles/Vol] 103 mmol/L Normal 98-107 [facility] ([place]) Comment on above: Performed By: #### R F, HCV1, SUDHAKAR, CORNELIA #### [place] [address] #### ADIFF, CBC, VIDH, LIPID, [id number], TSH, GFR, CMP, ANEU #### [address] [address] CO2 [Moles/Vol] 30 mmol/L High 22-29 [facility] ([place]) Comment on above: Performed By: #### R F, HCV1, SUDHAKAR, CORNELIA #### [place] [address] #### ADIFF, CBC, VIDH, LIPID, [id number], TSH, GFR, CMP, ANEU #### [place] [id number] Creatinine [Mass/Vol] 0.69 mg/dL Normal 0.55-1.02 [facility] ([place]) Comment on above: Performed By: #### R F, HCV1, SUDHAKAR, CORNELIA #### [place] [address] #### ADIFF, CBC, VIDH, LIPID, [id number], TSH, GFR, CMP, ANEU #### [place] [id number] Electrolyte Balance 11.0 mEq/L Normal 4.0-15.0 [facility] ([place]) Comment on above: Performed By: #### R F, HCV1, SUDHAKAR, CORNELIA #### [place] [address] #### ADIFF, CBC, VIDH, LIPID, [id number], TSH, GFR, CMP, ANEU #### [address] [address] Globulin 3.4 G/dL Normal [facility] ([place]) Comment on above: Performed By: #### R F, HCV1, SUDHAKAR, CORNELIA #### [place] [address] #### ADIFF, CBC, VIDH, LIPID, [id number], TSH, GFR, CMP, ANEU #### [address] [address] Glucose [Mass/Vol] 94 mg/dL Normal 70-105 [facility] ([place]) Comment on above: Performed By: #### R F, HCV1, SUDHAKAR, CORNELIA #### [place] [address] #### ADIFF, CBC, VIDH, LIPID, [id number], TSH, GFR, CMP, ANEU #### [address] [address] Potassium [Moles/Vol] 4.1 mmol/L Normal 3.5-5.1 [facility] ([place]) Comment on above: Performed By: #### R F, HCV1, SUDHAKAR, CORNELIA #### [place] [address] #### ADIFF, CBC, VIDH, LIPID, [id number], TSH, GFR, CMP, ANEU #### [address] [address] Sodium [Moles/Vol] 144 mmol/L Normal 136-145 [facility] ([place]) Comment on above: Performed By: #### R F, HCV1, SUDHAKAR, CORNELIA #### [place] [address] #### ADIFF, CBC, VIDH, LIPID, [id number], TSH, GFR, CMP, ANEU #### [address] [address] Total Protein 7.0 G/dL Normal 6.4-8.2 [facility] ([place] Comment on above: Performed By: #### R F, HCV1, SUDHAKAR, CORNELIA #### [place] [address] #### ADIFF, CBC, VIDH, LIPID, [id number], TSH, GFR, CMP, ANEU #### [address] [address] Urea nitrogen [Mass/Vol] 11 mg/dL Normal 7-18 [facility] ([place] Comment on above: Performed By: #### R F, HCV1, SUDHAKAR, CORNELIA #### [place] [address] #### ADIFF, CBC, VIDH, LIPID, [id number], TSH, GFR, CMP, ANEU #### [address] [address] HCVon 01-17-2024 Hep C Ab Non-Reactive Normal Non-Reactive [facility] ([place] Comment on above: Performed By: #### R F, HCV1, SUDHAKAR, CORNELIA ####[place] [address]#### ADIFF, CBC, VIDH, LIPID, [id number], TSH, GFR, CMP, ANEU ####[place] [address] Hep C Ab Int Normal [facility] ([place]) Comment on above: Result Comment: Nonr eactive: Samples with a value < 0.80 are considered nonreactive (negative) for antibodies to HCV. A negative test result does not exclude the possibility of exposure to or infection with HCV. HCV antibodies may be undetectable in some stages of the infection and in some clinical conditions. See Interp Performed By: #### R F, HCV1, SUDHAKAR, CORNELIA ####[place] [address]#### ADIFF, CBC, VIDH, LIPID, [id number], TSH, GFR, CMP, ANEU ####[place] [address] [place], [place] [address] LIPIDon 01-17-2024 Cholesterol [Mass/Vol] 272 mg/dL High 0-200 [facility] ([place]) Comment on above: Result Comment: Chol esterol Reference Interval: Less than 200 Desirable 200-239 Borderline high risk 240 and above High risk Performed By: #### R F, HCV1, SUDHAKAR, CORNELIA #### [place] [address] #### ADIFF, CBC, VIDH, LIPID, [id number], TSH, GFR, CMP, ANEU #### [address] [address] Cholesterol in HDL [Mass/Vol] 51 mg/dL Normal 40-60 [facility] ([place]) Comment on above: Performed By: #### R F, HCV1, SUDHAKAR, CORNELIA #### [place] [address] #### ADIFF, CBC, VIDH, LIPID, [id number], TSH, GFR, CMP, ANEU #### [address] [address] Cholesterol in LDL [Mass/Vol] 184 mg/dL High 0-130 [facility] ([place] Comment on above: Performed By: #### R F, HCV1, SUDHAKAR, CORNELIA #### [place] [address] #### ADIFF, CBC, VIDH, LIPID, [id number], TSH, GFR, CMP, ANEU #### [address] [address] Triglyceride [Mass/Vol] 184 mg/dL High 0-150 [facility] ([place] Comment on above: Result Comment: Trig lyceride Reference Interval: Less than 150 Normal 150-199 Borderline high risk 200-499 High risk 500 or higher Very high risk Performed By: #### R F, HCV1, SUDHAKAR, CORNELIA #### [place] [address] #### ADIFF, CBC, VIDH, LIPID, [id number], TSH, GFR, CMP, ANEU #### [address] [address] TSHon 01-17-2024 TSH Qn 1.65 m[IU]/L Normal 0.36-3.74 [facility] ([place]) Comment on above: Performed By: #### R F, HCV1, SUDHAKAR, CORNELIA #### [place] [address] #### ADIFF, CBC, VIDH, LIPID, [id number], TSH, GFR, CMP, ANEU #### [address] [address] VIDHon 01-17-2024 Vit. D 25-Hydroxy 11.2 ng/mL Normal [facility] ([place]) Comment on above: Result Comment: Inte rpretive Values Based on Total 25([place]) Vitamin D: Deficient <20 ng/mL Insufficient 20 - <30 ng/mL Sufficient 30-100 ng/mL Performed By: #### R F, HCV1, SUDHAKAR, CORNELIA #### [facility] [address] [place] [address] #### ADIFF, CBC, VIDH, LIPID, [id number], TSH, GFR, CMP, ANEU #### [facility] [address] [place], [place] [address] Vital Signs Date Time Vital Sign Value Performing Clinician Edisoni sanjana 07-16-2024 19:11-0400 Respiratory rate 16 /min DIMITRIS SPANN MD [address] [place] [address] 07-16-2024 18:45-0400 Respiratory rate 16 /min DIMITRIS SPANN MD [address] [place] [address] 07-16-2024 18:20-0400 Diastolic Blood Pressure Non-Invasive 70 mm[Hg] DIMITRIS SPANN MD [address] [place] [address] 07-16-2024 18:20-0400 Heart rate 67 /min DIMITRIS SPANN MD [address] [place] [address] 07-16-2024 18:20-0400 Respiratory rate 16 /min DIMITRIS SPANN MD [address] [place] [address] 07-16-2024 18:20-0400 Systolic Blood Pressure Non-Invasive 108 mm[Hg] DIMITRIS SPANN MD [address] [place] [address] 07-16-2024 17:59-0400 Diastolic Blood Pressure Non-Invasive 72 mm[Hg] DIMITRIS SPANN MD [address] [place] [address] 07-16-2024 17:59-0400 Heart rate 66 /min DIMITRIS SPANN MD [address] [place] [address] 07-16-2024 17:59-0400 Systolic Blood Pressure Non-Invasive 111 mm[Hg] DIMITRIS SPANN MD [facility] 07-16-2024 17:44-0400 Diastolic Blood Pressure Non-Invasive 69 mm[Hg] DIMITRIS SPANN MD [facility] 07-16-2024 17:44-0400 Heart rate 65 /min DIMITRIS SPANN MD [facility] 07-16-2024 17:44-0400 Systolic Blood Pressure Non-Invasive 120 mm[Hg] DIMITRIS SPANN MD [facility] 07-16-2024 06:15-0400 Mean blood pressure 78 mm[Hg] DIMITRIS SPANN MD [address] [place] [address] 07-15-2024 20:14-0400 Heart rate 63 /min DIMITRIS SPANN MD [address] [place] [address] 07-15-2024 17:34-0400 Heart rate 70 /min DIMITRIS SPANN MD [facility] 07-15-2024 13:48-0400 Body temperature 98.06 [degF] DIMITRIS SPANN MD [address] [place] [address] 07-15-2024 13:48-0400 Body weight 77.3 kg DIMITRIS SPANN MD [address] [place] [address] 07-15-2024 13:48-0400 Heart rate 84 /min DIMITRIS SPANN MD [facility] 04-10-2024 11:46-0400 Body height 157.5 cm CORRINA BARTLETT [employer] SWAGING MACHINE OPERATOR [facility] 04-10-2024 11:46-0400 Body weight 82.72 kg CORRINA BARTLETT [employer] SWAGING MACHINE OPERATOR [facility] 04-10-2024 11:46-0400 Body weight 33.35 kg/m2 CORRINA BARTLETT [employer] SWAGING MACHINE OPERATOR [facility] 03-01-2024 01:57-0400 Diastolic blood pressure 69 mm[Hg] BOBBI LOMELI MD [facility] 03-01-2024 01:57-0400 Heart rate 67 /min BOBBI LOMELI MD [facility] 03-01-2024 01:57-0400 Respiratory rate 16 /min BOBBI LOMELI MD [facility] 03-01-2024 01:57-0400 Systolic blood pressure 127 mm[Hg] BOBBI LOMELI MD [facility] 03-01-2024 00:17-0400 Blood Pressure Location BOBBI LOMELI MD [facility] 03-01-2024 00:17-0400 Blood Pressure Method BOBBI LOMELI MD [facility] 03-01-2024 00:17-0400 Body height 157.5 cm BOBBI LOMELI MD [facility] 03-01-2024 00:17-0400 Body temperature 96.62 [degF] BOBBI LOMELI MD [facility] 03-01-2024 00:17-0400 Body weight 86.4 kg BOBBI LOMELI MD [facility] 03-01-2024 00:17-0400 Diastolic Blood Pressure Non-Invasive 80 mm[Hg] BOBBI LOMELI MD [facility] 03-01-2024 00:17-0400 Heart rate 71 /min BOBBI LOMELI MD [facility] 03-01-2024 00:17-0400 Respiratory rate 16 /min BOBBI LOMELI MD [facility] 03-01-2024 00:17-0400 Systolic Blood Pressure Non-Invasive 144 mm[Hg] BOBBI LOMELI MD [facility] Encounters Encounter Date Encounter Type Care Provider Facility Start: 07-15-2024 End: 07-16-2024 Emergency department patient visit CORRINA Chapa MEGA [employer]AGING MACHINE OPERATOR Facility:A Start: 07-15-2024 End: 07-16-2024 Observation DIMITRIS SPANN MD [facility] Start: 07-11-2024 End: 07-12-2024 Emergency department patient visit BOBBI TORRES [facility] Start: 06-11-2024 End: 06-11-2024 ambulatory CORRINA ORDOÑEZSEY [employer] SWAGING MACHINE OPERATOR Facility:B Start: 06-11-2024 End: 06-11-2024 Patient encounter procedure CORRINA BARTLETT [employer]ING MACHINE OPERATOR [facility] Start: 06-10-2024 End: 06-14-2024 ambulatory BETZAIDA JUNIOR [employer] SWAGING MACHINE OPERATOR Facility:B Start: 06-10-2024 End: 06-14-2024 Outreach Lab BETZAIDA JUNIOR [employer] SWAGING MACHINE OPERATOR [facility] Start: 06-03-[address] PATRICIA MARIE MD Fa cility:B Start: 05-22-2024 End: 05-22-2024 ambulatory CORRINA BARTLETT [employer] SWAGING MACHINE OPERATOR Facility:B Start: 05-22-2024 End: 05-22-2024 Patient encounter procedure CORRINA ORDOÑEZSEY [employer] SWAGING MACHINE OPERATOR [facility] Start: 04-10-2024 End: 04-10-2024 ambulatory CORRINA ORDOÑEZSEY [employer] SWAGING MACHINE OPERATOR Facility:B Start: 04-10-2024 End: 04-10-2024 Patient encounter procedure CORRINA ORDOÑEZSEY [employer] SWAGING MACHINE OPERATOR [facility] Start: 03-21-2024 End: 03-21-2024 ambulatory CORRINA BARTLETT [employer] SWAGING MACHINE OPERATOR Facility:B Start: 03-21-2024 End: 03-21-2024 Patient encounter procedure CORRINA BARTLETT [employer] SWAGING MACHINE OPERATOR [facility] Start: 03-05-2024 End: 03-05-2024 ambulatory CORRINA BARTLETT [employer] SWAGING MACHINE OPERATOR Facility:B Start: 03-05-2024 End: 03-05-2024 Patient encounter procedure CORRINA BARTLETT [employer] SWAGING MACHINE OPERATOR [facility] Start: 03-01-2024 End: 03-01-2024 Emergency department patient visit BOBBI LOMELI MD [facility] Start: 02-08-2024 End: 02-08-2024 ambulatory CORRINA BARTLETT [employer] SWAGING MACHINE OPERATOR Facility:B Start: 02-08-2024 End: 02-08-2024 Patient encounter procedure CORRINA BARTLETT [employer] SWAGING MACHINE OPERATOR [facility] Start: 01-17-2024 End: 01-17-2024 ambulatory CORRINA BARTLETT [employer] SWAGING MACHINE OPERATOR Facility:B Procedures Date Procedure Procedure Detail Performing Clinician None (qualifier value) BRAD BARTLETT [employer] SWAGING MACHINE OPERATOR Payers Date Payer Category Payer Unknown [id number] 2023 Unknown [id number] 1974 Unknown [id number] 2.16.8 [id number] 1974 Unknown [id number] 2.16.8 [id number] 1974 Unknown [id number] 2.16.8 [id number] 1974 Unknown [id number] 2.16.8 [id number] 1974 Unknown [id number] 2.16.8 [id number] 1974 Unknown [id number] 2.16.8 [id number] 1974 Unknown [id number] 2.16.8 [id number] 1974 Unknown [id number] 2.16.8 [id number] 1974 Unknown [id number] 2.16.8 [id number] 1974 Unknown [id number] 2.16.8 [id number] 1974 Unknown [id number] 2.16.8 [id number] 1974 Unknown [id number] 2.16. [id number] Social History Date Type Detail Facility Start: 01-16-2024 End: 04-30-2024 Tobacco smoking status Heavy tobacco smoker (finding) [facility] Sex Assigned At Female [facility] Functional Status Date Assessment Result Facility 07-16-2024 Functional Status Room check performed [facility] 07-16-2024 Functional Status Identification band [facility] 07-16-2024 Functional Status Single level home [facility] 07-16-2024 Functional Status [facility] 03-01-2024 Functional Status Independent [place] Mental Status Date Assessment Result Facility 07-16-2024 Mental Status Orientation Oriented x 4 [facility] 07-16-2024 Mental Status [facility] 07-16-2024 Mental Status [facility] 03-01-2024 Mental Status Orientation Oriented x 4 [facility] Clinical Notes 03-01-2024 to 07-16-2024 Note Date & Type Note Facility 07-16-2024 Note Date of Service 07/16/24 Procedure Name Lexiscan Stress Test Referring Provider Dr. Spann Indication CP Findings Pharmacologic stress testing was performed with regadenoson. A dose of 0.4 milligrams was infused as per protocol. -Resting HR: 68 -Peak HR: 100 -Resting BP: 121/64 -During exam, patient developed SOB/flushing/fatigue during the procedure. The resting electrocardiogram demonstrated NSR, TWI in anterior leads and did not show ST-segment changes consistent with myocardial ischemia. During the stress there was no EKG changes suggestive of ischemia. Impression: ECG portion of Lexiscan stress test is negative for inducible ischemia. Results of nuclear images will be reported separately. Digitally Signed by THADDEUS BRANCH MD on 07/16/2024 11:29 AM [facility] 07-16-2024 Hospital Discharge instructions Patient Education 07/16/2024 17:46:40 3- Heart Cath/PCI radial (07/2018) (CUSTOM) HEART CATHETERIZATION/PCI (radial) Discharge Instructions DIET Drink plenty of fluids for the next 48 hours to help your kidneys flush the heart cath dye out of your system ACTIVITY For the next 48 hours: Do not deep bend the wrist Do not lift, push, or pull anything over 5 pounds for 5 days Do not use the hand/arm to support your weight when rising from a chair or bed Do not drive For the next 7 days: Do not submerse your procedure site in water Do not swim, wash dishes, or take tub baths You may write, eat, type, and shower WOUND CARE Keep dressing on for 24 hours, wash, dry, and place Band-Aid. Keep a Band-Aid on your procedure site for the next 3-4 days Change the Band-Aid daily or if it gets wet/soiled AFTER YOU GO HOME, CALL YOUR DOCTOR FOR: Any increase in bruising or tenderness from the procedure site Any redness, pus, or other signs of infection at the site A temperature above 100.5 Severe pain at the site DIAL 911 AND RETURN TO THE HOSPITAL FOR: Any bleeding from the procedure site. The site may be bruised or tender, but it should not be bleeding at any time. If your site begins to bleed, hold firm pressure on it and dial 911 to return to the hospital Any increase in swelling at the procedure site. An increase in swelling could mean the area is bleeding under the skin. Hold firm pressure to the site and dial 911 to return to the hospital Document Released: 10/02/2006 Document Revised: 09/18/2013 Document Reviewed: 10/03/2014 [facility] Patient Information 2015 [employer]. This information is not intended to replace advice given to you by your health care provider. Make sure you discuss any questions you have with your health care provider. 07/16/2024 17:46:17 Moderate Conscious Sedation, Adult, Care After Moderate Conscious Sedation, Adult, Care After These instructions provide you with information about caring for yourself after your procedure. Your health care provider may also give you more specific instructions. Your treatment has been planned according to current medical practices, but problems sometimes occur. Call your health care provider if you have any problems or questions after your procedure. What can I expect after the procedure? After your procedure, it is common: To feel sleepy for several hours. To feel clumsy and have poor balance for several hours. To have poor judgment for several hours. To vomit if you eat too soon. Follow these instructions at home: For at least 24 hours after the procedure: Do not: ?Participate in activities where you could fall or become injured. ?Drive. ?Use heavy machinery. ?Drink alcohol. ?Take sleeping pills or medicines that cause drowsiness. ?Make important decisions or sign legal documents. ?Take care of children on your own. Rest. Eating and drinking Follow the diet recommended by your health care provider. If you vomit: ?Drink water, juice, or soup when you can drink without vomiting. ?Make sure you have little or no nausea before eating solid foods. General instructions Have a responsible adult stay with you until you are awake and alert. Take [id number]-[id number] and prescription medicines only as told by your health care provider. If you smoke, do not smoke without supervision. Keep all follow-up visits as told by your health care provider. This is important. Contact a health care provider if: You keep feeling nauseous or you keep vomiting. You feel light-headed. You develop a rash. You have a fever. Get help right away if: You have trouble breathing. This information is not intended to replace advice given to you by your health care provider. Make sure you discuss any questions you have with your health care provider. Document Released: 07/23/2014 Document Revised: 09/14/2018 Document Reviewed: 01/21/2017 [employer] Patient Education 2020 [employer]. Follow Up Care 07/15/2024 13:36:03 With:FAITH MAHAJAN MD Address: [address] [place] [address] [address] [place] [phone] When: Unknown [facility] 07-16-2024 Summary of episode note Discharge Instructions Thank you for allowing [facility] to assist you with your healthcare needs. The following is important discharge information regarding your hospital visit. Your Care Team CORRINA BARTLETT APRN-TONY Your Diagnosis Arthralgia Chest pain GERD (gastroesophageal reflux disease) Hyperlipidemia What to do next Follow Up Appointments Follow Up with FAITH MAHAJAN MD Where:[address] [place] [address] [address] [place] [address] [phone] Allergies Glutens Rash Medications Please ask your primary doctor or pharmacist before taking any other medication not listed, including over the counter drugs, herbal medications, vitamins and or supplements as they may interact with your home medications. What How Much When Why Instructions Last Dose New aspirin (aspirin 81 mg oral tablet, chewable) 1 tab(s) by mouth Every day Duration: 30 Days Refills: 2 Pickup at [facility]/pharmacy #[id number] New atorvastatin (atorvastatin 40 mg oral tablet) 1 tab(s) by mouth Once a day Duration: 30 Days Refills: 2 Pickup at [facility]/pharmacy #[id number] Unchanged acetaminophen-diphenhydramine (Tylenol PM Extra Strength oral tablet) 1 tab(s) by mouth Daily at bedtime as needed for as needed for pain Unchanged DULoxetine (DULoxetine 60 mg oral delayed release capsule) 1 cap by mouth Once a day Duration: 30 Days Unchanged ezetimibe (Zetia 10 mg oral tablet) 1 tab(s) by mouth Once a day Hyperlipidemia Duration: 90 Days Unchanged omega-3 polyunsaturated fatty acids (omega-3 fish oil 1000 mg oral capsule) 1 cap by mouth Three (3) times a day Duration: 90 Days Unchanged omeprazole (omeprazole 40 mg oral delayed release capsule) 1 cap by mouth Once a day GERD (gastroesophageal reflux disease) Unchanged triamcinolone topical (triamcinolone 0.1% topical cream) 1 application Topical Two (2) times a day Pharmacy Information [facility]/pharmacy #[id number]: [address] [place], [place] [id number] [phone] What How Much When Why Comments Stop Taking celecoxib (CeleBREX 200 mg oral capsule) 1 cap by mouth Two (2) times a day Arthralgia Duration: 30 Days Please take this list to your next doctor s visit. Bring all medications you take, including over the counter medications, herbals and other supplements with you to your doctor s visit. Patients and families are reminded to discard old lists and to update any records with all medication providers or retail pharmacies. Medication Leaflets aspirin (oral) ( pir in) Aspi-Cor, Kevin Plus, Durlaza, Ecotrin, Miniprin, Vazalore What is the most important information I should know about aspirin? Aspirin can cause Darius's syndrome, a serious and sometimes fatal condition in children. What is aspirin? Aspirin is a salicylate (yo-BZT-ig-ate) that is used to treat pain, and reduce fever or inflammation. Aspirin is sometimes used to treat or prevent heart attacks, strokes, and chest pain (angina). Aspirin should be used for these conditions only under the supervision of a doctor. Aspirin may also be used for purposes not listed in this medication guide. What should I discuss with my healthcare provider before taking aspirin? Using aspirin in a child or teenager with flu symptoms or chickenpox can cause a serious or fatal condition called Darius's syndrome. You should not use aspirin if you are allergic to it, or if you have: a recent history of stomach or intestinal bleeding; a bleeding disorder such as hemophilia; or if you have ever had an asthma attack or severe allergic reaction after taking aspirin or an NSAID (non-steroidal anti-inflammatory drug). Tell your doctor if you have ever had: asthma or seasonal allergies; stomach ulcers; liver disease; kidney disease; a bleeding or blood clotting disorder; gout; or heart disease, high blood pressure, or congestive heart failure. Taking aspirin during late may cause bleeding in the mother or the baby during delivery. Tell your doctor if you are or plan to become . You should not breastfeed while using this medicine. How should I take aspirin? Use exactly as directed on the label, or as prescribed by your doctor. Always follow directions on the medicine label about giving aspirin to a child. Take with food if aspirin upsets your stomach. You must chew the chewable tablet before you swallow it. Do not crush, chew, break, or open an enteric-coated or delayed/extended-release pill. Swallow it whole. Tell your doctor if you have a planned surgery. Store at room temperature away from moisture and heat. Do not use aspirin if you smell a strong vinegar odor in the aspirin bottle. The medicine may no longer be effective. What happens if I miss a dose? Aspirin is used when needed. If you are on a dosing schedule, skip any missed dose. Do not use two doses at one time. What happens if I overdose? Seek emergency medical attention or call the Poison Help line at . Overdose may cause stomach pain, vomiting, diarrhea, vision or hearing problems, fast or slow breathing, or confusion. What should I avoid while taking aspirin? Avoid alcohol. Heavy drinking can increase your risk of stomach bleeding. Avoid taking ibuprofen if you take aspirin to prevent stroke or heart attack. Ibuprofen can make aspirin less effective in protecting your heart and blood vessels. Ask your doctor how far apart your doses should be. Ask a doctor or pharmacist before using other medicines for pain, fever, swelling, or cold/flu symptoms. They may contain ingredients similar to aspirin (such as magnesium salicylate, ibuprofen, ketoprofen, or naproxen). What are the possible side effects of aspirin? Get emergency medical help if you have signs of an allergic reaction: hives; difficult breathing; swelling of your face, lips, tongue, or throat. Stop using aspirin and call your doctor at once if you have: ringing in your ears, confusion, hallucinations, rapid breathing, seizure (convulsions); severe nausea, vomiting, or stomach pain; bloody or tarry stools, coughing up blood or vomit that looks like coffee grounds; fever lasting longer than 3 days; or swelling, or pain lasting longer than 10 days. Common side effects may include: upset stomach, heartburn; drowsiness; or mild headache. This is not a complete list of side effects and others may occur. Call your doctor for medical advice about side effects. You may report side effects to FDA at 6-295-DJT-3322. What other drugs will affect aspirin? Ask your doctor before using aspirin if you take an antidepressant. Taking certain antidepressants with aspirin may cause you to bruise or bleed easily. Ask a doctor or pharmacist before using aspirin with any other medications, especially: a blood thinner (warfarin, Coumadin, Jantoven), or other medication used to prevent blood clots; or other salicylates such as Nuprin Backache Caplet, Kaopectate, KneeRelief, Pamprin Cramp Formula, Pepto-Bismol, Tricosal, Trilisate, and others. This list is not complete. Other drugs may affect aspirin, including prescription and hctn-tdg-clpavla medicines, vitamins, and herbal products. Not all possible drug interactions are listed here. Where can I get more information? Your pharmacist can provide more information about aspirin. Remember, keep this and all other medicines out of the reach of children, never share your medicines with others, and use this medication only for the indication prescribed. Every effort has been made to ensure that the information provided by [employer]. ('[employer]') is accurate, up-to-date, and complete, but no guarantee is made to that effect. Drug information contained herein may be time sensitive. [employer] information has been compiled for use by healthcare practitioners and consumers in the [place] and therefore [employer] does not warrant that uses outside of the [place] are appropriate, unless specifically indicated otherwise. [employer]'s drug information does not endorse drugs, diagnose patients or recommend therapy. [employer] drug information is an informational resource designed to assist licensed healthcare practitioners in caring for their patients and/or to serve consumers viewing this service as a supplement to, and not a substitute for, the expertise, skill, knowledge and judgment of healthcare practitioners. The absence of a warning for a given drug or drug combination in no way should be construed to indicate that the drug or drug combination is safe, effective or appropriate for any given patient. [employer] does not assume any responsibility for any aspect of healthcare administered with the aid of information [employer] provides. The information contained herein is not intended to cover all possible uses, directions, precautions, warnings, drug interactions, allergic reactions, or adverse effects. If you have questions about the drugs you are taking, check with your doctor, nurse or pharmacist. Copyright 2947-1287 [employer]. Version: 18.01. Revision Date: 05/08/2023. atorvastatin (a TOR va sta tin) Atorvaliq, Lipitor What is the most important information I should know about atorvastatin? You should not take atorvastatin if you have liver disease or cirrhosis. Atorvastatin can cause the breakdown of muscle tissue, which can lead to kidney failure. Call your doctor right away if you have unexplained muscle pain, tenderness, or weakness especially if you also have fever, unusual tiredness, or dark urine. What is atorvastatin? Atorvastatin is used together with diet to lower blood levels of 'bad' cholesterol (low-density lipoprotein, or LDL), to increase levels of 'good' cholesterol (high-density lipoprotein, or HDL), and to lower triglycerides (a type of fat in the blood). Atorvastatin is used to lower the risk of stroke, heart attack, or other heart complications in adults with or without type 2 diabetes or heart disease or other risk factors. Atorvastatin is also used alone, or along with diet, or with other cholesterol-lowering medications in adults and children aged 10 years and older with an inherited condition that causes high levels of bad cholesterol. Atorvastatin may also be used for purposes not listed in this medication guide. What should I discuss with my healthcare provider before taking atorvastatin? You should not use atorvastatin if you are allergic to it, or if you have liver failure or cirrhosis. Tell your doctor if you have or have ever had: muscle pain or weakness; diabetes; stroke; a thyroid disorder; a habit of drinking more than 2 alcoholic beverages per day; or kidney disease. Atorvastatin can cause the breakdown of muscle tissue, which can lead to kidney failure. This happens more often in women, in older adults, or people who have kidney disease or poorly controlled hypothyroidism (underactive thyroid). Atorvastatin may harm an unborn baby. Tell your doctor if you are . Ask a doctor if it is safe to breastfeed while using this medicine. How should I take atorvastatin? Follow all directions on your prescription label and read all medication guides or instruction sheets. Your doctor may occasionally change your dose. Use the medicine exactly as directed. Do not change your dose or stop taking any of your medications without your doctor's advice. Atorvastatin is usually taken once per day. Follow your doctor's instructions. You may take atorvastatin tablet with or without food. Take atorvastatin liquid medicine on an empty stomach, at least 1 hour before a meal or 2 hours after a meal. It may take up to 2 weeks before your cholesterol levels improve, and you may need frequent blood tests. Even if you have no symptoms, tests can help your doctor determine if this medicine is effective. Shake the oral suspension (liquid). Measure a dose with the supplied measuring device (not a kitchen spoon). Your treatment may also include diet, exercise, weight control, and blood tests. Store at room temperature away from moisture, heat, and light. Throw away in the trash any unused liquid 60 days after opening the bottle. What happens if I miss a dose? Take the medicine as soon as you can, but skip the missed dose if you are more than 12 hours late for the dose. Do not take two doses at one time. What happens if I overdose? Seek emergency medical attention or call the Poison Help line at . What should I avoid while taking atorvastatin? Avoid eating foods high in fat or cholesterol, or atorvastatin will not be as effective. Drinking alcohol may increase your risk of liver damage. Grapefruit may interact with atorvastatin and cause side effects. Avoid consuming grapefruit products and drinking more than 1.2 liters of grapefruit juice each day. What are the possible side effects of atorvastatin? Get emergency medical help if you have signs of an allergic reaction (hives, difficult breathing, swelling in your face or throat) or a severe skin reaction (fever, sore throat, burning eyes, skin pain, red or purple skin rash with blistering and peeling). Atorvastatin can cause the breakdown of muscle tissue, which can lead to kidney failure. Call your doctor right away if you have unexplained muscle pain, tenderness, or weakness especially if you also have fever, unusual tiredness, or dark urine. Muscle problems may be more likely in older adults and those who have kidney problems, thyroid problems, or take certain other medicines. Also call your doctor at once if you have: muscle weakness in your hips, shoulders, neck, and back; trouble lifting your arms, trouble climbing or standing; liver problems--loss of appetite, stomach pain (upper right side), tiredness, itching, dark urine, lillie-colored stools, jaundice (yellowing of the skin or eyes); kidney problems--swelling, urinating less, feeling tired or short of breath; or high blood sugar--increased thirst, increased urination, dry mouth, fruity breath odor. Common side effects may include: pain in your bones, spine, joints, or muscles; pain and burning when you urinate, painful urination; muscle spasms; upset stomach; trouble sleeping; stuffy nose, runny nose, sore throat; diarrhea, nausea; or pain in your arms or legs. This is not a complete list of side effects and others may occur. Call your doctor for medical advice about side effects. You may report side effects to FDA at 6-144-QRF-8745. What other drugs will affect atorvastatin? Sometimes it is not safe to use certain medicines at the same time. Some drugs can affect your blood levels of other drugs you use, which can increase risk of serious muscle problems or make the medicines less effective. Tell your doctor about all your current medicines. Many drugs can affect atorvastatin, especially: other cholesterol lowering medicine--gemfibrozil, niacin, fenofibrate, fenofibric acid, and others; colchicine; antibiotic or antifungal medicine--rifampin, erythromycin, clarithromycin, itraconazole, ketoconazole, posaconazole, and voriconazole; control pills; medicine to prevent organ transplant rejection; or antiviral medicine to treat hepatitis C or HIV. This list is not complete and many other drugs may affect atorvastatin. This includes prescription and tgbl-ozp-wgoglho medicines, vitamins, and herbal products. Not all possible drug interactions are listed here. Where can I get more information? Your doctor or pharmacist can provide more information about atorvastatin. Remember, keep this and all other medicines out of the reach of children, never share your medicines with others, and use this medication only for the indication prescribed. Every effort has been made to ensure that the information provided by [employer]. [employer]') is accurate, up-to-date, and complete, but no guarantee is made to that effect. Drug information contained herein may be time sensitive. [employer] information has been compiled for use by healthcare practitioners and consumers in the [place] and therefore [employer] does not warrant that uses outside of the [place] are appropriate, unless specifically indicated otherwise. [employer]'s drug information does not endorse drugs, diagnose patients or recommend therapy. [employer]'s drug information is an informational resource designed to assist licensed healthcare practitioners in caring for their patients and/or to serve consumers viewing this service as a supplement to, and not a substitute for, the expertise, skill, knowledge and judgment of healthcare practitioners. The absence of a warning for a given drug or drug combination in no way should be construed to indicate that the drug or drug combination is safe, effective or appropriate for any given patient. [facility] does not assume any responsibility for any aspect of healthcare administered with the aid of information [facility] provides. The information contained herein is not intended to cover all possible uses, directions, precautions, warnings, drug interactions, allergic reactions, or adverse effects. If you have questions about the drugs you are taking, check with your doctor, nurse or pharmacist. Copyright 4208-4193 [facility]. Version: 23.02. Revision Date: 04/06/2023. Education Materials HEART CATHETERIZATION/PCI (radial) Discharge Instructions DIET Drink plenty of fluids for the next 48 hours to help your kidneys flush the heart cath dye out of your system ACTIVITY For the next 48 hours: Do not deep bend the wrist Do not lift, push, or pull anything over 5 pounds for 5 days Do not use the hand/arm to support your weight when rising from a chair or bed Do not drive For the next 7 days: Do not submerse your procedure site in water Do not swim, wash dishes, or take tub baths You may write, eat, type, and shower WOUND CARE Keep dressing on for 24 hours, wash, dry, and place Band-Aid. Keep a Band-Aid on your procedure site for the next 3-4 days Change the Band-Aid daily or if it gets wet/soiled AFTER YOU GO HOME, CALL YOUR DOCTOR FOR: Any increase in bruising or tenderness from the procedure site Any redness, pus, or other signs of infection at the site A temperature above 100.5 Severe pain at the site DIAL 911 AND RETURN TO THE HOSPITAL FOR: Any bleeding from the procedure site. The site may be bruised or tender, but it should not be bleeding at any time. If your site begins to bleed, hold firm pressure on it and dial 911 to return to the hospital Any increase in swelling at the procedure site. An increase in swelling could mean the area is bleeding under the skin. Hold firm pressure to the site and dial 911 to return to the hospital Document Released: 10/02/2006 Document Revised: 09/18/2013 Document Reviewed: 10/03/2014 ExitCare Patient Information 2015 [employer]. This information is not intended to replace advice given to you by your health care provider. Make sure you discuss any questions you have with your health care provider. Moderate Conscious Sedation, Adult, Care After These instructions provide you with information about caring for yourself after your procedure. Your health care provider may also give you more specific instructions. Your treatment has been planned according to current medical practices, but problems sometimes occur. Call your health care provider if you have any problems or questions after your procedure. What can I expect after the procedure? After your procedure, it is common: To feel sleepy for several hours. To feel clumsy and have poor balance for several hours. To have poor judgment for several hours. To vomit if you eat too soon. Follow these instructions at home: For at least 24 hours after the procedure: Do not: ? Participate in activities where you could fall or become injured. ? Drive. ? Use heavy machinery. ? Drink alcohol. ? Take sleeping pills or medicines that cause drowsiness. ? Make important decisions or sign legal documents. ? Take care of children on your own. Rest. Eating and drinking Follow the diet recommended by your health care provider. If you vomit: ? Drink water, juice, or soup when you can drink without vomiting. ? Make sure you have little or no nausea before eating solid foods. General instructions Have a responsible adult stay with you until you are awake and alert. Take deoj-cyl-jkublxx and prescription medicines only as told by your health care provider. If you smoke, do not smoke without supervision. Keep all follow-up visits as told by your health care provider. This is important. Contact a health care provider if: You keep feeling nauseous or you keep vomiting. You feel light-headed. You develop a rash. You have a fever. Get help right away if: You have trouble breathing. This information is not intended to replace advice given to you by your health care provider. Make sure you discuss any questions you have with your health care provider. Document Released: 07/23/2014 Document Revised: 09/14/2018 Document Reviewed: 01/21/2017 [employer] Patient Education 2020 [employer] Additional Information VACCINATE! IT SAVES LIVES! Members of the community who have not yet received the COVID-19 vaccine and would like to receive it can visit one of [facility] vaccine clinics. There are many vaccine clinic locations within the [facility]. For locations and available times, please visit [email or web address].[place].gov/. It is important to note that some COVID mobile vaccine clinics are held outdoors and may be canceled in rainy or stormy conditions. To learn more about pediatric vaccinations (ages 5-11), we invite you to visit the [facility] webpage. [email or web address] To learn more about the COVID-19 vaccine, we invite you to visit the CDC website for a list of frequently asked questions.https://www.cdc.gov/cor onavirus/2019-ncov/vaccines/faq.h tml yourdelivery Patient Portal Access Instructions: Stay connected with your healthcare team and access your personal medical information anytime with the yourdelivery Patient Portal. Please follow the directions below to create your yourdelivery account: 1.Access the email account you provided upon registration to the hospital/physician office.2.Look for an invitation email from [facility].3.Open the email and access the invitation link: Accept Invitation to yourdelivery.4.Fill in the required bravo to create your account. To access your account, visit [email or web address]. Click the blue button labeled Access Patient Portal and then log in with the username and password that you created in the steps above. You will be able to view your test results, lab results, a summary of your visits, upcoming appointments and more. There is also a convenient messaging option where you can send secure messages to your provider. In addition, you will have the ability to download any documents or summaries to your computer and/or send the information securely to a physician. Remember that your healthcare information is confidential, so carefully consider who you will allow to register on the yourdelivery Patient Portal for access to your information. You can also access the yourdelivery Patient Portal on the [employer] arthur. Simply click on Patient Portal and then log into your account. If you would like to receive a full copy of your medical records, please contact the [facility] Medical Records Department by calling [phone], Monday through Monday between 8 a.m. and 4:30 p.m. HOW TO SAFELY DISPOSE OF PRESCRIPTION MEDICATIONS Please use one of the following methods to safely dispose of your unused medications. 1.Use a drug disposal kit: the drug disposal pouch allows you to safely discard your old and unused drugs. Ask your nurse to give you one when you are discharged.2.Visit a local take-back location: Many local pharmacies and police departments have programs that collect old and unwanted prescription drugs. Call your local pharmacy or go to http://[employer].Sentrigo/5N2Ng6t to find one close to you.3.Make use of household items: Use cat litter or old coffee grounds to dispose medications if other options are not available. Mix your drugs with these household products, seal them in an airtight container and throw it into the garbage. Call [facility]: [phone] to be sure your drugs can be disposed of in this way. Some medicines may require a different approach.4.Never flush your medications down the toilet. IF YOU HAVE BEEN PRESCRIBED AN OPIOID FOR PAIN If you have been prescribed an opioid (such as hydrocodone, oxycodone or morphine), it is critical to understand the possible side effects and risks of opioid pain medications. Even when taken as directed, opioids can have several side effects including: Tolerance, meaning you might need to take more of a medication for the same pain relief. Nausea, vomiting and/or constipation. Sleepiness, dizziness, dry mouth, confusion, depression or itching. Physical dependence, meaning you have withdrawal symptoms when a medication is stopped, can develop within a few days. KNOW YOUR RESPONSIBILITIES It is important to know exactly how much and how often to take the opioid pain medications you are prescribed. Never take opioids in higher amounts or more often than prescribed. Do not combine opioids with alcohol or other drugs that cause drowsiness, such as benzodiazepines, also known as benzos, including diazepam and alprazolam, muscle relaxants or sleep aids. Never sell or share prescription opioids. This is illegal. Store opioids in a secure place and out of reach of others (including children, family, friends and visitors). The last page of this document has been signed and retained as a CHART COPY. Signatures Patient Education Materials 3- Heart Cath/PCI radial (07/2018) (CUSTOM) Moderate Conscious Sedation, Adult, Care After Medication Leaflets aspirin (oral), atorvastatin My discharge plan and instructions have been reviewed and explained to me and I,JACKIBECKYBLU VIRY understand my current condition and have read and understand these discharge instructions. I have received a written copy of the plan/instructions. If I have questions, I am aware that I should contact my doctor. Patient/Living Nurse Signature: Date/Time: Relationship to Patient: ____ Witness Name/Signature: Date/Time: [facility] 07-16-2024 Discharge summary Date of Service 07/16/2024 Discharge Diagnosis 1. Mild CAD 2. GERD 3. Hyperlipidemia 4. Active smoker 5. Obesity Hospital Course A 48-year-old female with PMH of GERD, hyperlipidemia and active smoker presented because of chest pain. Patient had a stress test which was equivocal and concerning because of breast attenuation. Cardiac cath was done which was suggestive of only mild CAD. Allergies Glutens Rash Consults Consult to Physician - Ordered -- 07/16/24 3:36:00 EDT, LOLIS MORALES MD, Routine, cp Objective Vitals and Measurements HR: 67 (Monitored) RR: 16 BP: 128/81 SpO2: 98% Weight Dosing Weight: 77.3 kg (07/15/24) General: AAOX3, NAD HEENT: Anicteric sclera, MMM Neck: Trachea midline, no JVD appreciated CVS: RRR, normal S1/S2, no murmurs/rubs/gallops Lung: CTAB, no wheezes/rhonchi/rales Abd: Soft, NT/ND Extrem: WWP, no LE edema Skin: Warm, Intact Neuro: AAOX3, spontaneous movement of all extremities Psych: Appropriate mood & affect Code Status Code Status - Ordered -- 07/16/24 3:32:00 EDT, Full Code, Constant Order Admission Date 07/16/2024 Discharge Date 07/16/2024 Medications New Prescription aspirin (aspirin 81 mg oral tablet, chewable)1 tab(s) by mouth every day for 30 Days. Refills: 2. atorvastatin (atorvastatin 40 mg oral tablet)1 tab(s) by mouth once a day for 30 Days. Refills: 2. Unchanged acetaminophen-diphenhydramine (Tylenol PM Extra Strength oral tablet)1 tab(s) by mouth daily at bedtime as needed as needed for pain. DULoxetine (DULoxetine 60 mg oral delayed release capsule)1 cap by mouth once a day for 30 Days. Refills: 0. ezetimibe (Zetia 10 mg oral tablet)1 tab(s) by mouth once a day for 90 Days. Refills: 0. omega-3 polyunsaturated fatty acids (omega-3 fish oil 1000 mg oral capsule)1 cap by mouth three (3) times a day for 90 Days. Refills: 0. omeprazole (omeprazole 40 mg oral delayed release capsule)1 cap by mouth once a day. Refills: 0. triamcinolone topical (triamcinolone 0.1% topical cream)1 application Topical two (2) times a day. Discontinued celecoxib (CeleBREX 200 mg oral capsule)1 cap by mouth two (2) times a day for 30 Days. Refills: 0. Follow Up Appointments No qualifying data available. Follow Up Labs/Studies Discharge Labs No Follow-up Labs Discharge Studies No Follow-up Studies Discharge Diet No qualifying data available. Discharge Activity No qualifying data available. Readmission Risk/Palliative Score No qualifying data available. 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 worse with inspiration or minimal exertion pulmonary emboli is on the differential and was ruled out with a CT PE (though final read pending prelim negative), will admit her to complete ACS rule out, get an echocardiogram, order a stress test, and consult cardiology Chest pain ACS rule out, echo to eval for heart wall motion abnormality or valve defect, stress test, cardiology consult Arthritis with NSAID use will give her a GI cocktail could also be on the differential to explain her chest pain but must rule out coronary etiology as above but she has not had an ischemic workup in the past Hyperlipidemia stable Celiac disease stable DVT prophylaxis SCDs Full code, patient was admitted for the above Ordered: Assign to Observation status, 07/16/24 1:17:00 EDT, Level of Care: Stepdown with monitor, Reason for Admission: See History & Physical, I certify that hospital services are medically necessary. At this time I do not anticipate a two midnight stay., Constant Order, Chest pain [facility] 2024 Cardiology Consult note Date of Service 07/16/2024 Reason for Consultation CP History of Present Illness Thus is a 48 yo F with h/o hyperlipidemia who presents with new CP. 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 Patient's CP sharp and achy lasted about 30 seconds. Patient went to ED in [facility]. Patient did not want to stay for stress test. Patient came back. Patient still with left neck and left parasternal CP worse with exertion lasting about 30 seconds. CP worse with deep breath on 07/11 but not pleuritic. Went to PCP 07/15/2024 and had new EKG changes that appears to me as new nonspecific T wave changes. Patient ordered Lexiscan by hospitalist. Review of Systems Constitutional: Negative for fever, negative for fatigue, negative for chills, negative for weight changes HEENT: Negative for reported sleep apnea, negative for swollen neck glands Cardiovascular: Positive for chest pain, negative for palpitations, negative for lightheadedness/syncope, negative for orthopnea, negative for lower extremity swelling Respiratory: Negative for shortness of breath at rest, negative for shortness of breath with activity, for cough, negative for wheezing Gastrointestinal: Negative for abdominal pain, negative for nausea, negative for melena, negative for hematochezia Genitourinary: Negative for dysuria, negative for urgency, negative for urinary frequency Musculoskeletal: Negative for back pain, negative for abnormal joint pains, negative for unusual muscle pains Skin: Negative for rashes, negative for ulcers Neurological: Negative for facial droop, negative for focal numbness, negative for weakness Psychiatric: Negative for anxiety, negative for depression Endocrine: Negative for hot flashes, negative for excessive thirst Hematologic/Lymphatic: No easy bruising, no unusual bleeding Physical Exam Vitals and Measurements T: 36.7 C (Oral) HR: 59 (Monitored) RR: 16 BP: 117/59 SpO2: 95% WT: 77.3 kg Weight Dosing Weight: 77.3 kg (07/15/24) GENERAL: Well nourished; no acute distress. ASSISTIVE DEVICES: None. PSYCHIATRIC: Alert and oriented x 3, cooperative, mood normal, affect normal. HEAD: Normocephalic, nontraumatic head. EYES: s within normal limits. ENT: within normal limits. NECK: Supple, no posterior midline tenderness. Normal range of motion. No thyromegaly noted. CARDIAC: Regular rate, regular rhythm, no murmurs noted. no JVD. normal S1 normal S2 no S3 no S4 RESPIRATORY: Regular rate and depth; no distress, RIGHT lung clear, LEFT lung clear. Breath sounds normal. ABDOMEN: Soft, nontender. Normal bowel sounds. EXTREMITIES: No_ lower extremity pitting edema. No lymphedema. . NEURO: Cranial Nerves II-XII grossly intact; MUSCULOSKELETAL: . No scoliosis. Left parasternal CW tender. Different than clinical CP DERM: Warm and dry. Normal turgor. No observed exanthem. No significant dandruff. Lab Results 07/15 13:53 WBC: 7.1 Hgb: 12.1 Hct: 35.8 Platelet: 312 Neutrophil %: 68.0 Glucose Level: 138 H Sodium Level: 141 Potassium Level: 3.9 BUN: 8.0 Creatinine Lvl (s): 0.57 Imaging Results and Diagnostics TTSummary: 1. Left ventricle: The cavity size is normal. Wall thickness is mildly increased. Systolic functionis normal. The estimated ejection fraction is 55-60%. Wall motion is normal; there are no regional wall motion abnormalities. Normal diastolic function. 2. Ventricular septum: Thickness is mildly increased. 3. Mitral valve: There is trivial regurgitation. 4. Right ventricle: The RV systolic pressure by Doppler is 33 mm Hg. 5. Right atrium: The estimated right atrial pressure is 3 mm HgE 03/21/2024 EKG EC07/15/24: SINUS RHYTHM PROBABLE LEFT ATRIAL ENLARGEMENT BORDERLINE T WAVE ABNORMALITIES Electronic Signature: YASH ROSS MD 07/16/2024 01:53:16 Assessment/Plan Arthralgia Chest pain GERD (gastroesophageal reflux disease) Hyperlipidemia IMPRESSION: 1 Unexplained left parasternal sharp achy CP. Has some exertional component. Has left parasternal CW tenderness different character but same area as clinical CP. 2. Hyperlipidemia 3. BMI 34 PLAN: 1. Lipitor 40 mg qd 2. Await Lexiscan nuclear 3. If Lexiscan nuclear normal and patient still with exertional chest discomfort, I would still do LHC. 4. ASA 81 mg qd Problem List/Past Medical History Ongoing SUDHAKAR positive Arthralgia BMI 34.0-34.9,adult Chronic diarrhea Hyperlipidemia Myalgia Never smoked tobacco Positive autoantibody screening for celiac disease Rheumatoid factor positive Right hip pain Screening due Procedure/Surgical History None Medications Inpatient CeleBREX, 200 mg= 1 cap(s), Oral, BID Dextrose 50% IV Push, 12.5 gram(s)= 25 mL, IV Push, AsDirected, PRN DULoxetine, 60 mg= 1 cap(s), Oral, qDay DuoNeb, 3 mL, Inhalation, q4hRT, PRN heparin 5000 units/mL injection, 5000 unit(s)= 1 mL, Subcutaneous, q8h Maalox, 30 mL, Oral, q2h, PRN melatonin, 3 mg= 1 tab(s), Oral, qHS, PRN melatonin, 3 mg= 1 tab(s), Oral, qHS, PRN Miralax Powder Packet, 17 gram(s)= 15 mL, Oral, qDay, PRN morphine, 2 mg= 1 mL, IV Push, q3h, PRN omega-3 fish oil 1000 mg oral capsule, 1000 mg= 1 cap(s), Oral, TID Percocet 325/5, 2 tab(s), Oral, q4h, PRN Protonix, 40 mg= 1 tab(s), Oral, qDayAC Tylenol, 650 mg= 2 tab(s), Oral, q4h, PRN Zetia, 10 mg= 1 tab(s), Oral, qDay Zofran, 4 mg= 2 mL, IV Push, q4h, PRN Home CeleBREX 200 mg oral capsule, 200 mg= 1 cap(s), Oral, BID DULoxetine 60 mg oral delayed release capsule, 60 mg= 1 cap(s), Oral, qDay omega-3 fish oil 1000 mg oral capsule, 1000 mg= 1 cap(s), Oral, TID omeprazole 40 mg oral delayed release capsule, 40 mg= 1 cap(s), Oral, qDay triamcinolone 0.1% topical cream, 1 arthur, Topical, BID, Not taking Tylenol PM Extra Strength oral tablet, 1 tab(s), Oral, qHS, PRN Zetia 10 mg oral tablet, 10 mg= 1 tab(s), Oral, qDay Allergies Glutens Rash Social History Alcohol Use: Never., 01/16/2024 Nutrition/Health Caffeine intake amount: 6 cups daily., 01/16/2024 Substance Abuse Use: Never., 04/30/2024 Tobacco Nicotine Use: 10 or more cigarettes (1/2 pack or more)/day in last 30 days., 04/30/2024 Nicotine Use: 10 or more cigarettes (1/2 pack or more)/day in last 30 days., 01/16/2024 Family History Alcohol abuse: Mother, Father and Brother. Cancer: Father. Diabetes: Grandparent. Mental illness: Mother and Brother. Health Status Family Member(s) Immunizations No qualifying data available. Digitally Signed by LEO GRANDA MD on 07/16/2024 09:25 AM [id number] Note Date of Service 07/16/24 Procedure Name Lexiscbhargav Stress Test Referring Provider Dr. Spann Indication CP Findings Pharmacologic stress testing was performed with regadenoson. A dose of 0.4 milligrams was infused as per protocol. -Resting HR: 68 -Peak HR: 100 -Resting BP: 121/64 -During exam, patient developed SOB/flushing/fatigue during the procedure. The resting electrocardiogram demonstrated NSR, TWI in anterior leads and did not show ST-segment changes consistent with myocardial ischemia. During the stress there was no EKG changes suggestive ofischemia. Impression: ECG portion of Lexiscan stress test is negative for inducible ischemia. Results of nuclear images will be reported separately. Digitally Signed by THADDEUS BRANCH MD on 07/16/2024 11:29 AM [facility] [id number] Note ORIGINAL EXAMINATION: CARDIAC SPECT07/16/2024 10:00 am TECHNIQUE: Lexiscan dose: 0.4 mg IV Radiopharmaceutical (rest and stress doses): Tc-99m Sestamibi IV 8.4 and 26.5 mCi SPECT acquisition and processing: Images reconstructed into short, vertical long, and horizontal long axis planes. Wall motion evaluation and quantitative LVEF assessment. COMPARISON: CTA chest from same day at 2:54 a.m. HISTORY: Reason for Exam: cp FINDINGS: Presumed soft tissue attenuation at the apex and apical to mid anterior wall is limiting evaluation. Otherwise, no convincing stress-induced reversible perfusion abnormality is seen in the remaining left ventricular myocardium. No fixed perfusion defect is seen to suggest infarction. The left ventricular end-diastolic volume is 84 mL. Gated imaging demonstrates no regional wall motion abnormality. Estimated left ventricular ejection fraction is 70 %. TID ratio is normal at 1.19. Low-dose attenuation correction CT demonstrates no coronary atherosclerotic calcifications. The heart is normal in size. No pericardial or pleural effusion is seen. There is dependent atelectasis. IMPRESSION: 1. Presumed soft tissue attenuation at the apex and apical to mid anterior wall is limiting evaluation. Otherwise, no convincing stress-induced reversible perfusion abnormality is seen in the remaining left ventricular myocardium. 2. Cardiac systolic function is normal with estimated ejection fraction of 70 %. I have personally reviewed the images of this examination and agree with the resident's findings and interpretation. Interpreted by: Piyush Hicks MD Preliminary Report By: Joaquim Hernandez Electronically signed By Piyush Hicks MD Dictated Date: 07/16/2024 10:15:00 AM Prelim Date: 07/16/2024 10:57:11 AM Sign Date: 07/16/2024 10:57:11 AM Ordering Provider: [facility]2024 Cardiology Consult note Date of Service 07/16/2024 Reason for Consultation CP History of Present Illness Thus is a 48 yo F with h/o hyperlipidemia who presents with new CP. 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 Patient's CP sharp and achy lasted about 30 seconds. Patient went to ED in [facility]. Patient did not want to stay for stress test. Patient came back. Patient still with left neck and left parasternal CP worse with exertion lasting about 30 seconds. CP worse with deep breath on 07/11 but not pleuritic. Went to PCP 07/15/2024 and had new EKG changes that appears to me as new nonspecific T wave changes. Patient ordered Lexiscan by hospitalist. Review of Systems Constitutional: Negative for fever, negative for fatigue, negative for chills, negative for weight changes HEENT: Negative for reported sleep apnea, negative for swollen neck glands Cardiovascular: Positive for chest pain, negative for palpitations, negative for lightheadedness/syncope, negative for orthopnea, negative for lower extremity swelling Respiratory: Negative for shortness of breath at rest, negative for shortness of breath with activity, for cough, negative for wheezing Gastrointestinal: Negative for abdominal pain, negative for nausea, negative for melena, negative for hematochezia Genitourinary: Negative for dysuria, negative for urgency, negative for urinary frequency Musculoskeletal: Negative for back pain, negative for abnormal joint pains, negative for unusual muscle pains Skin: Negative for rashes, negative for ulcers Neurological: Negative for facial droop, negative for focal numbness, negative for weakness Psychiatric: Negative for anxiety, negative for depression Endocrine: Negative for hot flashes, negative for excessive thirst Hematologic/Lymphatic: No easy bruising, no unusual bleeding Physical Exam Vitals and Measurements T: 36.7 C (Oral) HR: 59 (Monitored) RR: 16 BP: 117/59 SpO2: 95% WT: 77.3 kg Weight Dosing Weight: 77.3 kg (07/15/24) GENERAL: Well nourished; no acute distress. ASSISTIVE DEVICES: None. PSYCHIATRIC: Alert and oriented x 3, cooperative, mood normal, affect normal. HEAD: Normocephalic, nontraumatic head. EYES: s within normal limits. ENT: within normal limits. NECK: Supple, no posterior midline tenderness. Normal range of motion. No thyromegaly noted. CARDIAC: Regular rate, regular rhythm, no murmurs noted. no JVD. normal S1 normal S2 no S3 no S4 RESPIRATORY: Regular rate and depth; no distress, RIGHT lung clear, LEFT lung clear. Breath sounds normal. ABDOMEN: Soft, nontender. Normal bowel sounds. EXTREMITIES: No_ lower extremity pitting edema. No lymphedema. . NEURO: Cranial Nerves II-XII grossly intact; MUSCULOSKELETAL: . No scoliosis. Left parasternal CW tender. Different than clinical CP DERM: Warm and dry. Normal turgor. No observed exanthem. No significant dandruff. Lab Results 07/15 13:53 WBC: 7.1 Hgb: 12.1 Hct: 35.8 Platelet: 312 Neutrophil %: 68.0 Glucose Level: 138 H Sodium Level: 141 Potassium Level: 3.9 BUN: 8.0 Creatinine Lvl (s): 0.57 Imaging Results and Diagnostics TTSummary: 1. Left ventricle: The cavity size is normal. Wall thickness is mildly increased. Systolic functionis normal. The estimated ejection fraction is 55-60%. Wall motion is normal; there are no regional wall motion abnormalities. Normal diastolic function. 2. Ventricular septum: Thickness is mildly increased. 3. Mitral valve: There is trivial regurgitation. 4. Right ventricle: The RV systolic pressure by Doppler is 33 mm Hg. 5. Right atrium: The estimated right atrial pressure is 3 mm HgE 03/21/2024 EKG EC07/15/24: SINUS RHYTHM PROBABLE LEFT ATRIAL ENLARGEMENT BORDERLINE T WAVE ABNORMALITIES Electronic Signature: YASH ROSS MD 07/16/2024 01:53:16 Assessment/Plan Arthralgia Chest pain GERD (gastroesophageal reflux disease) Hyperlipidemia IMPRESSION: 1 Unexplained left parasternal sharp achy CP. Has some exertional component. Has left parasternal CW tenderness different character but same area as clinical CP. 2. Hyperlipidemia 3. BMI 34 PLAN: 1. Lipitor 40 mg qd 2. Await Lexiscan nuclear 3. If Lexiscan nuclear normal and patient still with exertional chest discomfort, I would still do LHC. 4. ASA 81 mg qd Problem List/Past Medical History Ongoing SUDHAKAR positive Arthralgia BMI 34.0-34.9,adult Chronic diarrhea Hyperlipidemia Myalgia Never smoked tobacco Positive autoantibody screening for celiac disease Rheumatoid factor positive Right hip pain Screening due Procedure/Surgical History None Medications Inpatient CeleBREX, 200 mg= 1 cap(s), Oral, BID Dextrose 50% IV Push, 12.5 gram(s)= 25 mL, IV Push, AsDirected, PRN DULoxetine, 60 mg= 1 cap(s), Oral, qDay DuoNeb, 3 mL, Inhalation, q4hRT, PRN heparin 5000 units/mL injection, 5000 unit(s)= 1 mL, Subcutaneous, q8h Maalox, 30 mL, Oral, q2h, PRN melatonin, 3 mg= 1 tab(s), Oral, qHS, PRN melatonin, 3 mg= 1 tab(s), Oral, qHS, PRN Miralax Powder Packet, 17 gram(s)= 15 mL, Oral, qDay, PRN morphine, 2 mg= 1 mL, IV Push, q3h, PRN omega-3 fish oil 1000 mg oral capsule, 1000 mg= 1 cap(s), Oral, TID Percocet 325/5, 2 tab(s), Oral, q4h, PRN Protonix, 40 mg= 1 tab(s), Oral, qDayAC Tylenol, 650 mg= 2 tab(s), Oral, q4h, PRN Zetia, 10 mg= 1 tab(s), Oral, qDay Zofran, 4 mg= 2 mL, IV Push, q4h, PRN Home CeleBREX 200 mg oral capsule, 200 mg= 1 cap(s), Oral, BID DULoxetine 60 mg oral delayed release capsule, 60 mg= 1 cap(s), Oral, qDay omega-3 fish oil 1000 mg oral capsule, 1000 mg= 1 cap(s), Oral, TID omeprazole 40 mg oral delayed release capsule, 40 mg= 1 cap(s), Oral, qDay triamcinolone 0.1% topical cream, 1 arthur, Topical, BID, Not taking Tylenol PM Extra Strength oral tablet, 1 tab(s), Oral, qHS, PRN Zetia 10 mg oral tablet, 10 mg= 1 tab(s), Oral, qDay Allergies Glutens Rash Social History Alcohol Use: Never., 01/16/2024 Nutrition/Health Caffeine intake amount: 6 cups daily., 01/16/2024 Substance Abuse Use: Never., 04/30/2024 Tobacco Nicotine Use: 10 or more cigarettes (1/2 pack or more)/day in last 30 days., 04/30/2024 Nicotine Use: 10 or more cigarettes (1/2 pack or more)/day in last 30 days., 01/16/2024 Family History Alcohol abuse: Mother, Father and Brother. Cancer: Father. Diabetes: Grandparent. Mental illness: Mother and Brother. Health Status Family Member(s) Immunizations No qualifying data available. Digitally Signed by LEO GRANDA MD on 07/16/2024 09:25 AM [id number] Note ORIGINAL EXAMINATION: CTA OF THE CHEST 07/16/2024 3:05 am TECHNIQUE: CTA of the chest was performed after the administration of intravenous contrast. Multiplanar reformatted images are provided for review. MIP images are provided for review. Automated exposure control, iterative reconstruction, and/or weight based adjustment of the mA/kV was utilized to reduce the radiation dose to as low as reasonably achievable. COMPARISON: None. HISTORY: ORDERING SYSTEM PROVIDED HISTORY: Reason for Exam: Patient states cp and sob since . cp FINDINGS: Respiratory motion limits some detail. Pulmonary Arteries: Pulmonary arteries are adequately opacified for evaluation. No evidence of intraluminal filling defect to suggest pulmonary embolism. Main pulmonary artery is normal in caliber. Mediastinum: No evidence of mediastinal lymphadenopathy. The heart and pericardium demonstrate no acute abnormality. There is no acute abnormality of the thoracic aorta. Lungs/pleura: No endobronchial are main endotracheal lesion. No pneumothorax or pleural effusion. Hypoventilatory changes with bibasilar atelectasis. No focal consolidation or pulmonary edema. Upper Abdomen: Punctate gallstone. Tiny sliding hiatal hernia. Visualized upper abdomen is otherwise noncontributory. Soft Tissues/Bones: No acute bone or soft tissue abnormality. IMPRESSION: No evidence of pulmonary embolism or acute pulmonary abnormality. Hypoventilatory changes. Incidental punctate gallstone. I have personally reviewed the images of this examination and agree with the resident's findings and interpretation. Interpreted by: Kurt Holder MD Preliminary Report By: Otilio Redd Electronically signed By Kurt Holder MD Dictated Date: 07/16/2024 3:07:04 AM Prelim Date: 07/16/2024 3:13:15 AM Sign Date: 07/16/2024 3:49:00 AM Ordering Provider: DIMITRIS [facility]2024 History and physical note Date of Service 07/16/2024 Chief Complaint Patient states she went to see her PCP, Mega, GREGG sent her to ER regarding EKG changes . 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 Approxi-1 week ago patient started having some pain in her chest worse with inspiration or exertion she went to the emergency department at [facility] had some bloodwork done and EKGs and was told to follow-up as an outpatient with her primary care physician for astress test but was not actually admitted. She saw her primary care provider who recommended she return to the emergency department for urgent evaluation of her chest pain. In the emergency department Vital signs unremarkable CBC WBC of 7 H&H over 35 platelets 312 BMP glucose 138 sodium 141 potassium 3.6 creatinine 0.5 BUN 8 CO2 26 BNP 51 High sensitive troponin 3 repeat 3 EKG which I personally reviewed interpreted showed normal sinus rhythm ED physician spoke to cardiology on-call recommended admission to the hospital service Patient was seen and examined at the bedside She does report inspiratory chest pain CT PE ordered prelim no PE Review of Systems All pertinent positive and negative review of systems as per HPI, all other review of systems reviewed and negative Physical Exam Vitals and Measurements T: 36.7 C (Oral) HR: 67 (Monitored) RR: 16 BP: 131/82 SpO2: 100% WT: 77.3 kg Weight Dosing Weight: 77.3 kg (07/15/24) GENERAL:nad ASSISTIVE DEVICES: None PSYCHIATRIC: appropriate HEENT moist mucous membranes extraocular muscles intact CARDIOVASCULAR: Regular rate, regular rhythm, no murmurs noted. Notrace lower extremity pitting edema. No lymphedema. Dorsalis Pedis pulses+2/4 blaterally . Posterior Tibialis pulses+2/4 bilaterally . RESPIRATORY: Regular rate and depth; no distress, RIGHT lungclear ; LEFT lungclear . Breath soundsnormal . 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 is presenting with chest pain worse with inspiration or minimal exertion pulmonary emboli is on the differential and was ruled out with a CT PE (though final read pending prelim negative), will admit her to complete ACS rule out, get an echocardiogram, order a stress test, and consult cardiology Chest pain ACS rule out, echo to eval for heart wall motion abnormality or valve defect, stress test, cardiology consult Arthritis with NSAID use will give her a GI cocktail could also be on the differential to explain her chest pain but must rule out coronary etiology as above but she has not had an ischemic workup inthe past Hyperlipidemia stable Celiac disease stable DVT prophylaxis SCDs Full code, patient was admitted for the above Ordered: Assign to Observation status, 07/16/24 1:17:00 EDT, Level of Care: Stepdown with monitor, Reason for Admission: See History & Physical, I certify that hospital services are medically necessary. At this time I do not anticipate a two midnight stay., Constant Order, Chest pain Problem List/Past Medical History Ongoing SUDHAKAR positive Arthralgia BMI 34.0-34.9,adult Chronic diarrhea Hyperlipidemia Myalgia Never smoked tobacco Positive autoantibody screening for celiac disease Rheumatoid factor positive Right hip pain Screening due Procedure/Surgical History None no significant past surgical history Medications Home Medications (7) Active CeleBREX 200 mg oral capsule 200 mg = 1 cap(s), Oral, BID DULoxetine 60 mg oral delayed release capsule 60 mg = 1 cap(s), Oral, qDay omega-3 fish oil 1000 mg oral capsule 1,000 mg = 1 cap(s), Oral, TID omeprazole 40 mg oral delayed release capsule 40 mg = 1 cap(s), Oral, qDay triamcinolone 0.1% topical cream 1 arthur, Topical, BID Tylenol PM Extra Strength oral tablet 1 tab(s), PRN, Oral, qHS Zetia 10 mg oral tablet 10 mg = 1 tab(s), Oral, qDay Allergies Glutens Rash Social History Alcohol Use: Never., 01/16/2024 Nutrition/Health Caffeine intake amount: 6 cups daily., 01/16/2024 Substance Abuse Use: Never., 04/30/2024 Tobacco Nicotine Use: 10 or more cigarettes (1/2 pack or more)/day in last 30 days., 04/30/2024 Nicotine Use: 10 or more cigarettes (1/2 pack or more)/day in last 30 days., 01/16/2024 Family History Alcohol abuse: Mother, Father and Brother. Cancer: Father. Diabetes: Grandparent. Mental illness: Mother and Brother. Health Status Family Member(s) Immunizations No qualifying data available. Code Status No qualifying data available. Digitally Signed by DIMITRIS SPANN MD on 07/16/2024 03:53 AM [facility] [id number] Note ORIGINAL EXAMINATION: ONE XRAY VIEW OF THE CHEST 07/15/2024 2:00 pm COMPARISON: 03/01/2024 HISTORY: ORDERING SYSTEM PROVIDED HISTORY: Reason for Exam: chest pain IMPRESSION: Cardiomediastinal silhouette is within normal limits. No overt edema. No focal consolidation. Costophrenic angles are sharp. No pneumothorax. No acute skeletal abnormality. No acute fracture. Interpreted by: Sylvia Green Preliminary Report By: Sylvia Green Electronically signed By Sylvia Green Dictated Date: 07/15/2024 2:01:38 PM Prelim Date: 07/15/2024 2:02:41 PM Sign Date: 07/15/2024 2:02:41 PM Ordering Provider[id number] NoteSINUS RHYTHM PROBABLE LEFT ATRIAL ENLARGEMENT BORDERLINE T WAVE ABNORMALITIES Electronic Signature: YASH ROSS MD 07/16/2024 01:53:[address] [place] [address] 09-26-2024 NoteTranscription Authentication Interface Message Text CURRENT STATUS IS EMERGENCY . : Any questions regarding PATIENT CLASS/STATUS should be directed to the Care Management Departments: [facility] [phone] or [facility] [phone] or [facility] [phone].[facility] [id number] Note This Pap Test was successfully processed and evaluated with the assistance of the [facility]. [facility] 08-28-2024 Note This Pap Test was successfully processed and evaluated with the assistance of the [facility]. [facility] 08-28-2024 Note This Pap Test was successfully processed and evaluated with the assistance of the [facility]. [facility] 08-28-2024 Note This Pap Test was successfully processed and evaluated with the assistance of the [facility]. [facility] 08-28-2024 Note This Pap Test was successfully processed and evaluated with the assistance of the [facility]. [facility] 08-28-2024 Note This Pap Test was successfully processed and evaluated with the assistance of the [facility]. [facility] 08-28-2024 Note This Pap Test was successfully processed and evaluated with the assistance of the [facility]. [facility] 08-28-2024 Note This Pap Test was successfully processed and evaluated with the assistance of the [facility]. [facility] 08-27-2024 Evaluation + Plan note Future Appointments Diagnostic Tests Pending * Lyme Disease Serology w/Reflex 06/11/24 [facility] 06-06-2024 Note* Exam Date Time Procedure Performing Provider Status 03/21/24 3:50 PM Echocardiogram, Adult - CV Auth (Verified) [facility] 05-17-2024 Hospital Discharge instructions Patient Education 03/01/2024 01:42:46 Hypertension, To Be Confirmed High Blood Pressure, To Be Confirmed, No Treatment Your blood pressure today was higher than normal. Sometimes anxiety or pain can cause a temporary rise in blood pressure. It later returns to normal. Blood pressure that is high only one time doesn tmean that you have high blood pressure (hypertension). High blood pressure is a chronic illness. But you should have your blood pressure measured again within the next few days to find out if it s still high. Blood pressure measurements are given as 2 numbers. Systolic blood pressure is the upper number. This is the pressure when the heart contracts. Diastolic blood pressure is the lower number. This is the pressure when the heart relaxes between beats. You will see your blood pressure readings written together. For example, a person with a systolic pressure of 118 and a diastolic pressure of 78 will have 118/78 written in the medical record. Blood pressure is categorized as normal, elevated, or stage 1 or stage 2 high blood pressure: Normal blood pressure is systolic of less than 120 and diastolic of less than 80 (120/80) Elevated blood pressure is systolic of 120 to 129 and diastolic less than 80 Stage 1 high blood pressure is systolic is 130 to 139 or diastolic between 80 to 89 Stage 2 high blood pressure is when systolic is 140 or higher or the diastolic is 90 or higher Lifestyle changes such as weight loss, exercise, and quitting smoking, can help manage your blood pressure. Have your blood pressure checked regularly to be sure it is under control. Home care To track your blood pressure, your provider may ask you to come into the office at different times and on different days. If your healthcare provider asks you to check your readings at home, ask him or her what times of the day to test and for how many days. Before you leave the office, ask your provider to show you how to take your blood pressure and be sure to ask questions if you don't understand something. Consider buying an automatic blood pressure monitor. Ask your provider for a recommendation as wellas the proper size cuff to fit your arm. You can buy blood pressure monitors at most pharmacies. The [employer] recommends the following guidelines for home blood pressure monitoring: Don't smoke or drink coffee or other caffeinated drinks for 30 minutes before taking your blood pressure. Go to the bathroom before the test. Relax for 5 minutes before taking the measurement. Sit with your back supported (don't sit on a couch or soft chair); keep your feet on the floor uncrossed. Place your arm on a solid flat surface (like a table) with the upper part of the arm at heartlevel. Place the middle of the cuff directly above the bend of the elbow. Check the monitor's instruction manual for an illustration. Take multiple readings. When you measure, take 2 to 3 readings one minute apart and record all of the results. Take your blood pressure at the same time every day, or as your healthcare provider recommends. Record the date, time, and blood pressure reading. Take the record with you to your next medical appointment. If your blood pressure monitor has a built-in memory, simply take the monitor with you to your next appointment. Call your provider if you have several high readings. Don't be frightened by a single high blood pressure reading, but if you get several high readings, check in with your healthcare provider. Note: When blood pressure reaches a systolic (top number) of 180 or higher OR diastolic (bottom number) of 110 or higher, seek emergency medical treatment. Follow-up care Keep all of your follow up appointments. If your blood pressure is more than 120 over 80 on 2 out of 3 days, you will need to follow up with your healthcare provider for more evaluation and treatment. Don t put this off! High blood pressure can be treated. High blood pressure that s not treated raises your risk for heart attack, heart failure, and stroke. When to seek medical advice Call your healthcare provider right away if any of these occur: Blood pressure reaches a systolic (top number) of 180 or higher, OR diastolic (bottom number) of 110 or higher Chest pain or shortness of breath Severe headache Throbbing or rushing sound in the ears Nosebleed Sudden severe pain in your belly (abdomen) Extreme drowsiness, confusion, or fainting Dizziness or dizziness with spinning sensation (vertigo) Weakness of an arm or leg or one side of the face You have problems speaking or seeing [id number] [employer]. [address] [place] [address], [place] [address]. All rights reserved. This information is not intended as a substitute for professional medical care. Always follow yourhealthcare professional's instructions. 03/01/2024 01:42:41 Dehydration (Adult) Dehydration (Adult) Dehydration occurs when your body loses too much fluid. This may be the result of prolonged vomiting or diarrhea, excessive sweating, or a high fever. It may also happen if you don t drink enough fluid when you re sick or out in the heat. Misuse of diuretics (water pills) can also be a cause. Symptoms include thirst and decreased urine output. You may also feel dizzy, weak, fatigued, or very drowsy. The diet described below is usually enough to treat dehydration. In some cases, you may need medicine. Home care Drink at least 12 8-ounce glasses of fluid every day to resolve the dehydration. Fluid may include water; orange juice; lemonade; apple, grape, or cranberry juice; clear fruit drinks; electrolyte replacement and sports drinks; and teas and coffee without caffeine. Don't drink alcohol. If you have been diagnosed with a kidney disease, ask your doctor how much and what types of fluids you should drink to prevent dehydration. If you have kidney disease, fluid can build up in the body. This can be dangerous to your health. If you have a fever, muscle aches, or a headache as a result of a cold or flu, you may take acetaminophen or ibuprofen, unless another medicine was prescribed. If you have chronic liver or kidney disease, or have ever had a stomach ulcer or gastrointestinal bleeding, talk with your healthcare provider before using these medicines. Don't take aspirin if you are younger than 18 and have a fever. Aspirin raises the chance for severe liver injury. Follow-up care Follow up with your healthcare provider, or as advised. When to seek medical advice Call your healthcare provider right away if any of these occur: Continued vomiting Frequent diarrhea (more than 5 times a day); blood (red or black color) or mucus in diarrhea Blood in vomit or stool Swollen abdomen or increasing abdominal pain Weakness, dizziness, or fainting Unusual drowsiness or confusion Reduced urine output or extreme thirst Fever of 100.4 F (38 C) or higher [id number] [employer] [address] [place] [address], [place] [address]. All rights reserved. This information is not intended as a substitute for professional medical care. Always follow yourhealthcare professional's instructions. 03/01/2024 01:42:33 Understanding a Heart Murmur Understanding a Heart Murmur The heart makes sounds as it beats. These sounds occur as the heart valves open and close to allow blood to flow through the heart. A heart murmur is an extra noise heard during a heartbeat. The noise is caused when blood does not flow smoothly through the heart. Heart murmurs can be innocent (harmless) or abnormal (caused by a heart problem). What causes a heart murmur? An innocent heart murmur can be a normal finding for many people. It may also be caused by: Fever Exercise Anemia Overactive thyroid gland An abnormal heart murmur can be caused by heart problems such as: A damaged or diseased valve. The valve may be too narrow for blood to flow through easily. Or it may have problems opening or closing, and may leak blood backward. A hole in the heart (septal defect). This is a problem with the heart s structure that a person is born with (congenital). It causes blood to leak through the wall that normally divides the left and right sides of the heart. What are the symptoms of a heart murmur? Heart murmurs do not usually cause symptoms. They tend to be found when your healthcare provider islistening to your heart for another reason. People with an abnormal heart murmur may have symptoms of the problem causing the murmur. Symptoms can include: Feeling weak or tired Shortness of breath, especially with exercise Chest pain Fast, pounding, or skipping heartbeat Swollen ankles, feet, abdomen Feeling dizzy or faint Poor feeding and failing to grow normally (babies only) How is a heart murmur treated? An innocent heart murmur does not usually need treatment unless there is a clear cause, such as anemia. In such cases, treating the underlying cause should cure the murmur. In some cases, an innocentheart murmur may go away on its own. Treatment for an abnormal heart murmur depends on the cause. Options may include: Medicines to help relieve symptoms Procedures or surgery to fix or replace a diseased or damaged heart valve Procedures or surgery to fix a hole in the heart What are the complications of a heart murmur? An innocent heart murmur has no complications. Complications of an abnormal heart murmur will vary depending on the cause. Possible complications include: Heart failure. This problem occurs when the heart is so weak it no longer pumps blood well. Infection of the heart s valves or inner lining (infective endocarditis) Blood clots and stroke Fainting Heart attack Sudden cardiac arrest. This problem occurs when the heart suddenly stops beating. When should I call my healthcare provider? Call your healthcare provider right away if you have any of these: Chest pain Shortness of breath Fever of 100.4 F (38 C) or higher, or as directed Symptoms that don t get better with treatment, or symptoms that get worse New symptoms [id number] [employer] [address] [place] [address]. All rights reserved. This information is not intended as a substitute for professional medical care. Always follow yourhealthcare professional's instructions. 03/01/2024 01:42:27 Shortness of Breath (Dyspnea) Shortness of Breath (Dyspnea) Shortness of breath is the feeling that you can't catch your breath or get enough air. It is also known as dyspnea. Dyspnea can be caused by many different conditions. They include: Acute asthma attack Worsening of chronic lung diseases such as chronic bronchitis and emphysema Heart failure. This is when weak heart muscle allows extra fluid to collect in the lungs. Panic attacks or anxiety. Fear can cause rapid breathing (hyperventilation). Pneumonia, or an infection in the lung tissue Exposure to toxic substances, fumes, smoke, or certain medicines Blood clot in the lung (pulmonary embolism). This is often from a piece of blood clot in a deep vein of the leg (deep vein thrombosis) that breaks off and travels to the lungs. Heart attack or heart-related chest pain (angina) Anemia Collapsed lung (pneumothorax) Dehydration Based on your visit today, the exact cause of your shortness of breath is not certain. Your tests don t show any of the serious causes of dyspnea. You may need other tests to find out if you have a serious problem. It s important to watch for any new symptoms or symptoms that get worse. Follow up with your healthcare provider as directed. Home care Follow these tips to take care of yourself at home: When your symptoms are better, go back to your usual activities. If you smoke, you should stop. Join a quit-smoking program or ask your healthcare provider for help. Eat a healthy diet and get plenty of sleep. Get regular exercise. Talk with your healthcare provider before starting to exercise, especially ifyou have other medical problems. Cut down on the amount of caffeine and stimulants you consume. Follow-up care Follow up with your healthcare provider, or as advised. If tests were done, you will be told if your treatment needs to be changed. You can call as directed for the results. If an X-ray was taken, a specialist will review it. You will be notified of any new findings that may affect your care. Call 911 Shortness of breath may be a sign of a serious medical problem. For example, it may be a problem with your heart or lungs. Call 911 if you have worsening shortness of breath or trouble breathing, especially with any of the symptoms below: Confusion or difficulty waking Fainting or loss of consciousness. Fast or irregular heartbeat Coughing up blood Pain in your chest, arm, shoulder, neck, or upper back Sweating When to seek medical advice Call your healthcare provider right away if any of these occur: Slight shortness of breath or wheezing Redness, pain or swelling in your leg, arm, or other body area Swelling in both legs or ankles Fast weight gain Dizziness or weakness Fever of 100.4 F (38 C) or higher, or as directed by your healthcare provider [phone] [employer] [address] [place] [address]. All rights reserved. This information is not intended as a substitute for professional medical care. Always follow yourhealthcare professional's instructions. 03/01/2024 01:42:20 Leg Swelling in Both Legs Leg Swelling in Both Legs Swelling of the feet, ankles, and legs is called edema. It is caused by excess fluid that has collected in the tissues. Extra fluid in the body settles in the lowest part because of gravity. This is why the legs and feet are most affected. Some of the causes for edema include: Disease of the heart like congestive heart failure Standing or sitting for long periods of time Infection of the feet or legs Blood pooling in the veins of your legs (venous insufficiency) Dilated veins in your lower leg (varicose veins) Garters or other clothing that is tight on your legs. This will cause blood to pool in your legs because the clothing limits blood flow. Some medicines such as hormones like control pills, some blood pressure medicines like calcium channel blockers (amlodipine) and steroids, some antidepressants like MAO inhibitors and tricyclics Menstrual periods that cause you to retain fluids Many types of renal disease Liver failure or cirrhosis , some swelling is normal, but a sudden increase in leg swelling or weight gain can be a sign of a dangerous complication of Poor nutrition Thyroid disease Medical treatment will depend on what is causing the swelling in your legs. Your healthcare provider may prescribe water pills (diuretics) to get rid of the extra fluid. Home care Follow these guidelines when caring for yourself at home: Don't wear clothing like garters that is tight on your legs. Keep your legs up while lying or sitting. If infection, injury, or recent surgery is causing the swelling, stay off your legs as much as possible until symptoms get better. If your healthcare provider says that your leg swelling is caused by venous insufficiency or varicose veins, don't sit or field clinical engineer one place for long periods of time. Take breaks and walk about everyfew hours. Brisk walking is a good exercise. It helps circulate the blood that has collected in your leg. Talk with your provider about using support stockings to stop daytime leg swelling. If your provider says that heart disease is causing your leg swelling, follow a low-salt diet to stop extra fluid from staying in your body. You may also need medicine. Follow-up care Follow up with your healthcare provider, or as advised. When to seek medical advice Call your healthcare provider right away if any of these occur: New shortness of breath or chest pain Shortness of breath or chest pain that gets worse Swelling in both legs or ankles that gets worse Swelling of the abdomen Redness, warmth, or swelling in one leg Fever of 100.4 F (38 C) or higher, or as directed by your healthcare provider Yellow color to your skin or eyes Rapid, unexplained weight gain Having to sleep upright or use an increased number of pillows [phone] [employer] [address] [place] [address]. All rights reserved. This information is not intended as a substitute for professional medical care. Always follow yourhealthcare professional's instructions. Follow Up Care 03/01/2024 00:11:43 With:CORRINA BARTLETT Address: [address] [place] [phone] Business (1) When:2-4 days Comments:Schedule appointment as soon as possibleReturn to ED if symptoms worsenFollow-up for recheck and blood pressureIncrease fluidsDiscussed possible medication reactionsReturn for symptoms as describedFollow-up for outpatient echocardiogram for heart murmur and possible additional heart testing [facility] 05-17-2024 Note Discharge Instructions Thank you for allowing [facility] to assist you with your healthcare needs. The following is importantdischarge information regarding your hospital visit. Diagnosis from Today's Visit Dyspnea Heart murmur Hypernatremia Hypertension What to Do Next Instructions from Your Care Team No qualifying data available. Post Acute Orders No qualifying data available. You Need to Schedule the Following Appointments Follow Up with CORRINA BARTLETT When: When:Within 2-4 days Where:[address] [place] [phone]- [phone] Business (1) Why: Schedule appointment as soon as possible Return to ED if symptoms worsen Follow-up for recheck and blood pressure Increase fluids Discussed possible medication reactions Return for symptoms as described Follow-up for outpatient echocardiogram for heart murmur and possible additional heart testing Allergies [facility] Medications Please ask your primary doctor or pharmacist before taking any other medication not listed, including over the counter drugs, herbal medications, vitamins and or supplements as they may interact withyour home medications. What How Much When Why Instructions Last Dose Unchanged acetaminophen- diphenhydramine (Tylenol PM Extra Strength oral tablet) 1 tab(s) by mouth Daily at bedtime as needed for as needed for pain Unchanged meloxicam (meloxicam 15 mg oral tablet) 1 tab(s) by mouth Once a day Duration: 90 Days Take with food/ milk Unchanged omega-3 polyunsaturated fatty acids (omega-3 fish oil 1000 mg oral capsule) 1 cap by mouth Three (3) times a day Unchanged rosuvastatin (rosuvastatin 10 mg oral tablet) 1 tab(s) by mouth Once a day Hyperlipidemia Duration: 90 Days Unchanged simethicone (simethicone 20 mg/ 0.3 mL oral suspension) 0.3 Milliliter by mouth After meals & at bedtime as needed for as needed for gas Please take this list to your next doctor s visit. Bring all medications you take, including over the counter medications, herbals and other supplements with you to your doctor s visit. Patients and families are reminded to discard old lists and to update any records with all medication providers or retail pharmacies. [employer] High Blood Pressure, To Be Confirmed, No Treatment Your blood pressure today was higher than normal. Sometimes anxiety or pain can cause a temporary rise in blood pressure. It later returns to normal. Blood pressure that is high only one time doesn tmean that you have high blood pressure (hypertension). High blood pressure is a chronic illness. But you should have your blood pressure measured again within the next few days to find out if it s still high. Blood pressure measurements are given as 2 numbers. Systolic blood pressure is the upper number. This is the pressure when the heart contracts. Diastolic blood pressure is the lower number. This is the pressure when the heart relaxes between beats. You will see your blood pressure readings written together. For example, a person with a systolic pressure of 118 and a diastolic pressure of 78 will have 118/78 written in the medical record. Blood pressure is categorized as normal, elevated, or stage 1 or stage 2 high blood pressure: Normal blood pressure is systolic of less than 120 and diastolic of less than 80 (120/80) Elevated blood pressure is systolic of 120 to 129 and diastolic less than 80 Stage 1 high blood pressure is systolic is 130 to 139 or diastolic between 80 to 89 Stage 2 high blood pressure is when systolic is 140 or higher or the diastolic is 90 or higher Lifestyle changes such as weight loss, exercise, and quitting smoking, can help manage your blood pressure. Have your blood pressure checked regularly to be sure it is under control. Home care To track your blood pressure, your provider may ask you to come into the office at different times and on different days. If your healthcare provider asks you to check your readings at home, ask him or her what times of the day to test and for how many days. Before you leave the office, ask your provider to show you how to take your blood pressure and be sure to ask questions if you don't understand something. Consider buying an automatic blood pressure monitor. Ask your provider for a recommendation as wellas the proper size cuff to fit your arm. You can buy blood pressure monitors at most pharmacies. The [employer] recommends the following guidelines for home blood pressure monitoring: Don't smoke or drink coffee or other caffeinated drinks for 30 minutes before taking your blood pressure. Go to the bathroom before the test. Relax for 5 minutes before taking the measurement. Sit with your back supported (don't sit on a couch or soft chair); keep your feet on the floor uncrossed. Place your arm on a solid flat surface (like a table) with the upper part of the arm at heartlevel. Place the middle of the cuff directly above the bend of the elbow. Check the monitor's instruction manual for an illustration. Take multiple readings. When you measure, take 2 to 3 readings one minute apart and record all of the results. Take your blood pressure at the same time every day, or as your healthcare provider recommends. Record the date, time, and blood pressure reading. Take the record with you to your next medical appointment. If your blood pressure monitor has a built-in memory, simply take the monitor with you to your next appointment. Call your provider if you have several high readings. Don't be frightened by a single high blood pressure reading, but if you get several high readings, check in with your healthcare provider. Note: When blood pressure reaches a systolic (top number) of 180 or higher OR diastolic (bottom number) of 110 or higher, seek emergency medical treatment. Follow-up care Keep all of your follow up appointments. If your blood pressure is more than 120 over 80 on 2 out of 3 days, you will need to follow up with your healthcare provider for more evaluation and treatment. Don t put this off! High blood pressure can be treated. High blood pressure that s not treated raises your risk for heart attack, heart failure, and stroke. When to seek medical advice Call your healthcare provider right away if any of these occur: Blood pressure reaches a systolic (top number) of 180 or higher, OR diastolic (bottom number) of 110 or higher Chest pain or shortness of breath Severe headache Throbbing or rushing sound in the ears Nosebleed Sudden severe pain in your belly (abdomen) Extreme drowsiness, confusion, or fainting Dizziness or dizziness with spinning sensation (vertigo) Weakness of an arm or leg or one side of the face You have problems speaking or seeing 3237-0679 [employer]. [address] [place] [address]. All rights reserved. This information is not intended as a substitute for professional medical care. Always follow yourhealthcare professional's instructions. Dehydration (Adult) Dehydration occurs when your body loses too much fluid. This may be the result of prolonged vomiting or diarrhea, excessive sweating, or a high fever. It may also happen if you don t drink enough fluid when you re sick or out in the heat. Misuse of diuretics (water pills) can also be a cause. Symptoms include thirst and decreased urine output. You may also feel dizzy, weak, fatigued, or very drowsy. The diet described below is usually enough to treat dehydration. In some cases, you may need medicine. Home care Drink at least 12 8-ounce glasses of fluid every day to resolve the dehydration. Fluid may include water; orange juice; lemonade; apple, grape, or cranberry juice; clear fruit drinks; electrolyte replacement and sports drinks; and teas and coffee without caffeine. Don't drink alcohol. If you have been diagnosed with a kidney disease, ask your doctor how much and what types of fluids you should drink to prevent dehydration. If you have kidney disease, fluid can build up in the body. This can be dangerous to your health. If you have a fever, muscle aches, or a headache as a result of a cold or flu, you may take acetaminophen or ibuprofen, unless another medicine was prescribed. If you have chronic liver or kidney disease, or have ever had a stomach ulcer or gastrointestinal bleeding, talk with your healthcare provider before using these medicines. Don't take aspirin if you are younger than 18 and have a fever. Aspirin raises the chance for severe liver injury. Follow-up care Follow up with your healthcare provider, or as advised. When to seek medical advice Call your healthcare provider right away if any of these occur: Continued vomiting Frequent diarrhea (more than 5 times a day); blood (red or black color) or mucus in diarrhea Blood in vomit or stool Swollen abdomen or increasing abdominal pain Weakness, dizziness, or fainting Unusual drowsiness or confusion Reduced urine output or extreme thirst Fever of 100.4 F (38 C) or higher 7806-1530 [employer]. [address] [place] [address]. All rights reserved. This information is not intended as a substitute for professional medical care. Always follow yourhealthcare professional's instructions. Understanding a Heart Murmur The heart makes sounds as it beats. These sounds occur as the heart valves open and close to allow blood to flow through the heart. A heart murmur is an extra noise heard during a heartbeat. The noise is caused when blood does not flow smoothly through the heart. Heart murmurs can be innocent (harmless) or abnormal (caused by a heart problem). What causes a heart murmur? An innocent heart murmur can be a normal finding for many people. It may also be caused by: Fever Exercise Anemia Overactive thyroid gland An abnormal heart murmur can be caused by heart problems such as: A damaged or diseased valve. The valve may be too narrow for blood to flow through easily. Or it may have problems opening or closing, and may leak blood backward. A hole in the heart (septal defect). This is a problem with the heart s structure that a person is born with (congenital). It causes blood to leak through the wall that normally divides the left and right sides of the heart. What are the symptoms of a heart murmur? Heart murmurs do not usually cause symptoms. They tend to be found when your healthcare provider islistening to your heart for another reason. People with an abnormal heart murmur may have symptoms of the problem causing the murmur. Symptoms can include: Feeling weak or tired Shortness of breath, especially with exercise Chest pain Fast, pounding, or skipping heartbeat Swollen ankles, feet, abdomen Feeling dizzy or faint Poor feeding and failing to grow normally (babies only) How is a heart murmur treated? An innocent heart murmur does not usually need treatment unless there is a clear cause, such as anemia. In such cases, treating the underlying cause should cure the murmur. In some cases, an innocentheart murmur may go away on its own. Treatment for an abnormal heart murmur depends on the cause. Options may include: Medicines to help relieve symptoms Procedures or surgery to fix or replace a diseased or damaged heart valve Procedures or surgery to fix a hole in the heart What are the complications of a heart murmur? An innocent heart murmur has no complications. Complications of an abnormal heart murmur will vary depending on the cause. Possible complications include: Heart failure. This problem occurs when the heart is so weak it no longer pumps blood well. Infection of the heart s valves or inner lining (infective endocarditis) Blood clots and stroke Fainting Heart attack Sudden cardiac arrest. This problem occurs when the heart suddenly stops beating. When should I call my healthcare provider? Call your healthcare provider right away if you have any of these: Chest pain Shortness of breath Fever of 100.4 F (38 C) or higher, or as directed Symptoms that don t get better with treatment, or symptoms that get worse New symptoms [id number] [employer] [address] [place] [address]. All rights reserved. This information is not intended as a substitute for professional medical care. Always follow yourhealthcare professional's instructions. Shortness of Breath (Dyspnea) Shortness of breath is the feeling that you can't catch your breath or get enough air. It is also known as dyspnea. Dyspnea can be caused by many different conditions. They include: Acute asthma attack Worsening of chronic lung diseases such as chronic bronchitis and emphysema Heart failure. This is when weak heart muscle allows extra fluid to collect in the lungs. Panic attacks or anxiety. Fear can cause rapid breathing (hyperventilation). Pneumonia, or an infection in the lung tissue Exposure to toxic substances, fumes, smoke, or certain medicines Blood clot in the lung (pulmonary embolism). This is often from a piece of blood clot in a deep vein of the leg (deep vein thrombosis) that breaks off and travels to the lungs. Heart attack or heart-related chest pain (angina) Anemia Collapsed lung (pneumothorax) Dehydration Based on your visit today, the exact cause of your shortness of breath is not certain. Your tests don t show any of the serious causes of dyspnea. You may need other tests to find out if you have a serious problem. It s important to watch for any new symptoms or symptoms that get worse. Follow up with your healthcare provider as directed. Home care Follow these tips to take care of yourself at home: When your symptoms are better, go back to your usual activities. If you smoke, you should stop. Join a quit-smoking program or ask your healthcare provider for help. Eat a healthy diet and get plenty of sleep. Get regular exercise. Talk with your healthcare provider before starting to exercise, especially ifyou have other medical problems. Cut down on the amount of caffeine and stimulants you consume. Follow-up care Follow up with your healthcare provider, or as advised. If tests were done, you will be told if your treatment needs to be changed. You can call as directed for the results. If an X-ray was taken, a specialist will review it. You will be notified of any new findings that may affect your care. Call 911 Shortness of breath may be a sign of a serious medical problem. For example, it may be a problem with your heart or lungs. Call 911 if you have worsening shortness of breath or trouble breathing, especially with any of the symptoms below: Confusion or difficulty waking Fainting or loss of consciousness. Fast or irregular heartbeat Coughing up blood Pain in your chest, arm, shoulder, neck, or upper back Sweating When to seek medical advice Call your healthcare provider right away if any of these occur: Slight shortness of breath or wheezing Redness, pain or swelling in your leg, arm, or other body area Swelling in both legs or ankles Fast weight gain Dizziness or weakness Fever of 100.4 F (38 C) or higher, or as directed by your healthcare provider [id number] [employer]. [address] [place], [place] [id number]. All rights reserved. This information is not intended as a substitute for professional medical care. Always follow yourhealthcare professional's instructions. Leg Swelling in Both Legs Swelling of the feet, ankles, and legs is called edema. It is caused by excess fluid that has collected in the tissues. Extra fluid in the body settles in the lowest part because of gravity. This is why the legs and feet are most affected. Some of the causes for edema include: Disease of the heart like congestive heart failure Standing or sitting for long periods of time Infection of the feet or legs Blood pooling in the veins of your legs (venous insufficiency) Dilated veins in your lower leg (varicose veins) Garters or other clothing that is tight on your legs. This will cause blood to pool in your legs because the clothing limits blood flow. Some medicines such as hormones like control pills, some blood pressure medicines like calcium channel blockers (amlodipine) and steroids, some antidepressants like MAO inhibitors and tricyclics Menstrual periods that cause you to retain fluids Many types of renal disease Liver failure or cirrhosis , some swelling is normal, but a sudden increase in leg swelling or weight gain can be a sign of a dangerous complication of Poor nutrition Thyroid disease Medical treatment will depend on what is causing the swelling in your legs. Your healthcare provider may prescribe water pills (diuretics) to get rid of the extra fluid. Home care Follow these guidelines when caring for yourself at home: Don't wear clothing like garters that is tight on your legs. Keep your legs up while lying or sitting. If infection, injury, or recent surgery is causing the swelling, stay off your legs as much as possible until symptoms get better. If your healthcare provider says that your leg swelling is caused by venous insufficiency or varicose veins, don't sit or field clinical engineer one place for long periods of time. Take breaks and walk about everyfew hours. Brisk walking is a good exercise. It helps circulate the blood that has collected in your leg. Talk with your provider about using support stockings to stop daytime leg swelling. If your provider says that heart disease is causing your leg swelling, follow a low-salt diet to stop extra fluid from staying in your body. You may also need medicine. Follow-up care Follow up with your healthcare provider, or as advised. When to seek medical advice Call your healthcare provider right away if any of these occur: New shortness of breath or chest pain Shortness of breath or chest pain that gets worse Swelling in both legs or ankles that gets worse Swelling of the abdomen Redness, warmth, or swelling in one leg Fever of 100.4 F (38 C) or higher, or as directed by your healthcare provider Yellow color to your skin or eyes Rapid, unexplained weight gain Having to sleep upright or use an increased number of pillows [phone] [employer]. [address] [place] [address]. All rights reserved. This information is not intended as a substitute for professional medical care. Always follow yourhealthcare professional's instructions. Additional Information VACCINATE! IT SAVES LIVES! Members of the community who have not yet received the COVID-19 vaccine and would like to receive it can visit one of [facility] vaccine clinics. There are many vaccine clinic locations within the [facility]. For locations and available times, please visit [email or web address].gov/. It is important to note that some COVID mobile vaccine clinics are held outdoors and may be canceled in rainy or stormy conditions. To learn more about pediatric vaccinations (ages 5-11), we invite you to visit the [facility] webpage. [email or web address].[email or web address]/pages/[email or web address]-Qgdwi-Snmnjayolva-Bblmttlokt-Slelf-[email or web address] stions.htmlTo learn more about the COVID-19 vaccine, we invite you to visit the CDC website for a list of frequently asked questions. https://www.cdc.gov/coronavirus/2019-ncov/vaccines/faq.html [facility] Patient Portal Access Instructions: Stay connected with your healthcare team and access your personal medical information anytime with the [facility] Patient Portal. If you would like a full copy of your medical records please contact the [facility] Medical Records Department Monday through Monday between 8a.m. and 4:30p.m. Please follow the directions below to access the portal: 1.Access the email account you provided upon registration to the [facility].2.Look for an invitation email from [facility].3.Open the email and access the invitation link: Accept Invitation to [facility]4.Fill in the required bravo to create your account. Sign into [email or web address] with your username and password that you created in the above steps to stay up to date. You can then view a summary of results, a summary of your visits, and the ability to download your summaries to your computer or send the information securely to a physician. Remember that your healthcare information is confidential, so carefully consider who you will allow to register on the [facility] Patient Portal for access to your information. You can also access the [facility] Patient Portal on the [employer]. Simply click on Health Records under [employer] and then click on the [facility] logo. HOW TO SAFELY DISPOSE OF PRESCRIPTION MEDICATIONS Please use one of the following methods to safely dispose of your unused medications. 1.Use a drug disposal kit: the drug disposal pouch allows you to safely discard your old and unuseddrugs. Ask your nurse to give you one when you are discharged.2.Visit a local take-back location: Many local pharmacies and police departments have programs that collect old and unwanted prescriptiondrugs. Call your local pharmacy or go to http://[employer].Sentrigo/3N7Fi9x to find one close to you.3.Make use of household items: Use cat litter or old coffee grounds to dispose medications if other options arenot available. Mix your drugs with these household products, seal them in an airtight container andthrow it into the garbage. Call [facility]: [phone] to be sure your drugs can be disposed of in this way. Some medicines may require a different approach.4.Never flush your medications down the toilet. IF YOU HAVE BEEN PRESCRIBED AN OPIOIDS FOR PAIN If you have been prescribed an opioid (such as hydrocodone, oxycodone or morphine), it is critical to understand the possible side effects and risks of opioid pain medications. Even when taken as directed, opioids can have several side effects including: Tolerance, meaning you might need to take more of a medication for the same pain relief. Nausea, vomiting and/or constipation. Sleepiness, dizziness, dry mouth, confusion, depression or itching. Physical dependence, meaning you have withdrawal symptoms when a medication is stopped ? this can develop within a few days. KNOW YOUR RESPONSIBILITIES It is important to know exactly how much and how often to take the opioid pain medications you are prescribed. Never take opioids in higher amounts or more often than prescribed. Do not combine opioids with alcohol or other drugs that cause drowsiness, such as benzodiazepines, also known as benzos,including diazepam and alprazolam, muscle relaxants or sleep aids. Never sell or share prescriptionopioids. This is illegal. Store opioids in a secure place and out of reach of others (including children, family, friends and visitors). The last page(s) of this document has been signed and retained as a CHART COPY Signatures Patient Education Materials Hypertension, To Be Confirmed Dehydration (Adult) Understanding a Heart Murmur Shortness of Breath (Dyspnea) Leg Swelling in Both Legs Medication Leaflets My discharge plan and instructions have been reviewed and explained to me and I,VIRY JAY understand my current condition and have read and understand these discharge instructions. I have received a written copy of the plan/instructions. If I have questions, I am aware that I should contact my doctor. Patient/Living Nurse Signature: Date/Time: Relationship to Patient: Witness Name/Signature: Date/Time: [facility]05-17-2024 NoteSinus rhythm SEE DICTATION Electronic Signature: BOBBI LOMELI MD 03/01/2024 01:44:26[facility] 05-17-2024 Note ORIGINAL EXAMINATION: ONE XRAY VIEW OF THE CHEST 03/01/2024 12:48 am COMPARISON: None. HISTORY: ORDERING SYSTEM PROVIDED HISTORY: Reason for Exam: Shortness of breath, BLE swelling. chest pain FINDINGS: The cardiomediastinal silhouette appears normal. There is no focal consolidation. There is no pulmonary edema. There is no evidence of pleural effusion. There is no evidence of pneumothorax. No fracture is identified. IMPRESSION: No acute abnormality is identified. Interpreted by: Ar Ellis Preliminary Report By: Ar Ellis Electronically signed By Ar Ellis Dictated Date: 03/01/2024 12:55:37 AM Prelim Date: 03/01/2024 12:56:07 AM Sign Date: 03/01/2024 12:56:07 AM Ordering Provider: [facility]healthEvaluation + Plan note Future Appointments Appointment Date:04/16/2024 09:00:00 AM Scheduled Provider:CORRINA BARTLETT Location:[facility] Appointment Type:[facility] Evaluation + Plan note Future Appointments Appointment Date:03/04/2024 10:30:00 AM Scheduled Provider:CORRINA BARTLETT Location:[facility] Appointment Type:PC OV ED Follow Up Appointment Date:04/16/2024 09:00:00 AM Scheduled Provider:CORRINA BARTLETT Location:[facility] Appointment Type:[facility] Evaluation + Plan note Future Appointments [facility] course Narrative No data available for this section [facility] Discharge instructions No data available for this section [facility] Progress note No data available for this section [facility] note* SATNAM Olivo: PERFORM Event Display: Patient Summary Documents Authored Date: [id number] [facility] Summary Purpose Family History No Family History Records Found Advance Directives No Advanced Directives Records FoundNo Advanced Directives Records FoundNo Advanced Directives Records Found Additional Source Comments Patient Care team informatio n (unrecognized section and content) Care Team Personnel Name: CORRINA BARTLETT APRN-BULLET SWAGING MACHINE OPERATOR Position: P4 Advanced Admissions Clerk Member Role: Primary Care Physician Address: Address: [address] [place] [address] Care Team Related Persons Name: RONI, KRISTIE Care Team Personnel Name: CORRINA BARTLETT HOTEL CASINO FLOORPERSON-BULLET SWAGING MACHINE OPERATOR Position: P4 Advanced Admissions Clerk Member Role: Primary Care Physician Address: Address: [address] [place] [address] Care Team Related Persons Name: RONI, KRISTIE Care Team Personnel Name: CORRINA BARTLETT HOTEL CASINO FLOORPERSON-BULLET SWAGING MACHINE OPERATOR Position: P4 Advanced Admissions Clerk Member Role: Primary Care Physician Address: Address: [address] [place] [address] Care Team Related Persons Name: RONI, KRISTIE Care Team Personnel Name: CORRINA BARTLETT HOTEL CASINO FLOORPERSON-BULLET SWAGING MACHINE OPERATOR Position: P4 Advanced Admissions Clerk Member Role: Primary Care Physician Address: Address: [address] [place] [address] Care Team Related Persons Name: RONI, KRISTIE Care Team Personnel Name: CORRINA BARTLETT HOTEL CASINO FLOORPERSON-BULLET SWAGING MACHINE OPERATOR Position: P4 Advanced Admissions Clerk Member Role: Primary Care Physician Address: Address: [address] [place] [address] Care Team Related Persons Name: RONI, KRISTIE Care Team Personnel Name: CORRINA BARTLETT HOTEL CASINO FLOORPERSON-BULLET SWAGING MACHINE OPERATOR Position: P4 Advanced Admissions Clerk Member Role: Primary Care Physician Address: Address: [address] [place] [address] Care Team Related Persons Name: RONI, KRISTIE Care Team Personnel Name: CORRINA BARTLETT HOTEL CASINO FLOORPERSON-BULLET SWAGING MACHINE OPERATOR Position: P4 Advanced Admissions Clerk Member Role: Primary Care Physician Address: Address: [address] [place] [address] Care Team Related Persons Name: RONI, KRISTIE Care Team Personnel Name: CORRINA BARTLETT HOTEL CASINO FLOORPERSON-BULLET SWAGING MACHINE OPERATOR Position: P4 Advanced Admissions Clerk Member Role: Primary Care Physician Address: Address: [address] [place] [address] Care Team Related Persons Name: KRISTIE TAMAYO Care Team Personnel Name: CORRINA BARTLETT HOTEL CASINO FLOORPERSON-BULLET SWAGING MACHINE OPERATOR Position: P4 Advanced Admissions Clerk Member Role: Primary Care Physician Address: Address: [address] [place] [address] Care Team Related Persons Name: KRISTIE TAMAYO INFORMATION SOURCE (unrecogn ized section and content) DATE CREATED AUTHOR 06/15/2024 Count includes the [facility] ([place]) DATE CREATED AUTHOR AUTHOR'S ORGANIZ ATION 07/24/[address] [facility] DATE CREATED AUTHOR AUTHOR'S ORGANIZ ATION 07/25/2024 [facility] FOR RECORDS PERTAINING TO PATIENTS WHO ARE OR HAVE BEEN ENROLLED IN A CHEMICAL DEPENDENCY/SUBSTANCEABUSE PROGRAM, SOME INFORMATION MAY BE OMITTED. This clinical summary was aggregated from multiple sources. Caution should be exercised in using it in the provision of clinical care. This summary normalizes information from multiple sources, and as a consequence, information in this document may materially change the coding, format and clinical context of patient data. In addition, data may be omitted in some cases. CLINICAL DECISIONS SHOULD BE BASED ON THE PRIMARY CLINICAL RECORDS. [employer] [facility]. provides no warranty or guarantee of the accuracy or completeness of information in this document.
[2024-08-13 02:08] LABS: Giardia Lamblia, Stool EIA Negative (Negative); Pancreatic Elastase, Fecal 667 (>200)
[2024-08-13 14:10] LABS: Calprotectin, Stool 23 ug/g (0-120)
== END | disposition home or self-care (01) ==
LOC: LABSPEC 10:51
PROVIDERS: PCP Nurse Practitioner Family
DX: R19.7 Diarrhea, unspecified (principal); K58.9 Irritable bowel syndrome, unspecified
CPT/HCPCS: 82653; 83630; 83993; 87329

== ENCOUNTER 2024-09-27 10:52 | Day surgery (SDC) | payer BC, SELFPAY ==
--- NOTE | 2024-09-26 14:28 | PAT.ANE_ITS ---
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 When Was Last Pacemaker Check QUESTION #4 FULL TEXT: You/Your Family Experience fever (hyperthermia) with Anesthesia Last Oral Intake Last Oral intake: Last Oral Intake NPO since Meds taken in AM with sips of water? Meds patient instructed to take am of surgery PONV PONV - dietary supervisor: PONV - dietary supervisor Female Yes 09/26/24 08:50 HX of Motion Sickness No 09/26/24 08:50 HX of N/V After Surgery No 09/26/24 08:50 Non-Smoker No 09/26/24 08:50 Duration of Surgery greater No 09/26/24 08:50 than 60 minutes Number of Risk Factors 1 09/26/24 08:50 PONV Score Low Risk 09/26/24 08:50 Respiratory Assessment Respiratory Assessment - dietary supervisor: Respiratory Tract Infection Hx - dietary supervisor Hx Respiratory Tract Infection No 09/26/24 08:50 STOP Sleep Apnea STOP Sleep Apnea - dietary supervisor: STOP Sleep Apnea - dietary supervisor Hx Hypertension No 09/26/24 08:50 Hx Sleep Apnea No 09/26/24 08:50 CPAP BIPAP Do you snore loudly (louder No 09/26/24 08:50 than talking or can be heard Do you often feel tired/ No 09/26/24 08:50 fatigued/ sleepy during daytime? Has anyone observed you stop No 09/26/24 08:50 breathing during sleep? STOP Results Negative 09/26/24 08:50 QUESTION #5 FULL TEXT : Do you snore loudly (louder than talking or can be heard through closed doors)? 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 Specify any problems Hx of Preganancy in last 3 No 09/26/24 08:50 Months Nurse Filling Out Transfusion VLEHMAN 09/26/24 08:50 & Questions: Date: 09/26/24 09/26/24 08:50 Time: 09:01 09/26/24 08:50 Patient unable to answer at this time (ie. confused, unrespo /Reproduction History /Reproductive History - dietary supervisor: /Reproductive Hx- dietary supervisor Hx Now No 09/26/24 08:50 Gestational Age (in weeks): EDC: Hx Hx Para Hx Section SAB PFSH Medical History (Updated 09/26/24 @ 09:00 by Michelle Dailey) Wears glasses Post-menopausal Rash Low iron High cholesterol Dietary restriction Heartburn Gastric reflux Smoker History of echocardiogram History of stress test Cardiology follow-up encounter History of irregular heartbeat GERD (gastroesophageal reflux disease) Neuropathy Murmur, heart Bone fracture Back problem Anemia Home Medications ?Medication ?Instructions ?Recorded ?Last Taken ?Type acetaminophen 500 mg capsule 500 mg PO Q6H PRN pain 08/02/24 Unknown History aspirin 81 mg tablet,delayed 81 mg PO QDAY 08/02/24 Unknown History release atorvastatin 10 mg tablet (Lipitor) 10 mg PO QDAY 08/02/24 Unknown History duloxetine 60 mg capsule,delayed 60 mg PO BID 08/02/24 Unknown History release ezetimibe 10 mg tablet 10 mg PO QDAY 08/02/24 Unknown History loperamide 2 mg-simethicone 125 mg 1 tab PO Q3H PRN loose stool 08/02/24 Unknown History tablet omega 0-cst-ceb-fish oil 300 1 cap PO QDAY 08/02/24 Unknown History mg-1,000 mg capsule (Fish Oil) triamcinolone acetonide 0.1 % 1 applic topical BID 09/26/24 Unknown History topical cream Allergy/AdvReac Type Severity Reaction Status Date / Time No Known Allergies Allergy Verified 09/26/24 08:46 Surgical History (Updated 09/26/24 @ 09:00 by Michelle Dailey) History of cardiac catheterization History of wisdom tooth extraction Social History (Updated 08/02/24 @ 09:35 by Aleta Martínez) Smoking Status: Current every day smoker tobacco type: cigarettes what type of physical activity do you participate in: walking frequency: daily Audit: Pertinent Findings Pertinent Findings Echo (EF%) pertinent findings: July 16, 2024. Ejection fraction 55 to 60%. No regional wall motion abnormalities. normal diastolic function. Heart catheterization pertinent findings: July 16, 2024. The left main and left anterior descending are normal. Left circumflex and right coronary had mild diffuse disease. In the right coronary there is a proximal 30% stenosis. Recommendation Anesthesia Recommendation Anesthesia recommendation: F/U recommended Follow up Details Cadiac/Pulmonary Imaging Recommendation: Yes Cadiac/Pulmonary Imaging Rec Details: Was there also an EKG and stress test available for this patient?
--- NOTE | 2024-09-26 16:02 | PAT.ANE_ITS ---
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 When Was Last Pacemaker Check QUESTION #4 FULL TEXT: You/Your Family Experience fever (hyperthermia) with Anesthesia Last Oral Intake Last Oral intake: Last Oral Intake NPO since Meds taken in AM with sips of water? Meds patient instructed to take am of surgery PONV PONV - nurses medical assistants phlebotomists: PONV - nurses medical assistants phlebotomists Female Yes 09/26/24 08:50 HX of Motion Sickness No 09/26/24 08:50 HX of N/V After Surgery No 09/26/24 08:50 Non-Smoker No 09/26/24 08:50 Duration of Surgery greater No 09/26/24 08:50 than 60 minutes Number of Risk Factors 1 09/26/24 08:50 PONV Score Low Risk 09/26/24 08:50 Respiratory Assessment Respiratory Assessment - nurses medical assistants phlebotomists: Respiratory Tract Infection Hx - nurses medical assistants phlebotomists Hx Respiratory Tract Infection No 09/26/24 08:50 STOP Sleep Apnea STOP Sleep Apnea - nurses medical assistants phlebotomists: STOP Sleep Apnea - nurses medical assistants phlebotomists Hx Hypertension No 09/26/24 08:50 Hx Sleep Apnea No 09/26/24 08:50 CPAP BIPAP Do you snore loudly (louder No 09/26/24 08:50 than talking or can be heard Do you often feel tired/ No 09/26/24 08:50 fatigued/ sleepy during daytime? Has anyone observed you stop No 09/26/24 08:50 breathing during sleep? STOP Results Negative 09/26/24 08:50 QUESTION #5 FULL TEXT : Do you snore loudly (louder than talking or can be heard through closed doors)? 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 Specify any problems Hx of Preganancy in last 3 No 09/26/24 08:50 Months Nurse Filling Out Transfusion VLEHMAN 09/26/24 08:50 & Questions: Date: 09/26/24 09/26/24 08:50 Time: 09:01 09/26/24 08:50 Patient unable to answer at this time (ie. confused, unrespo /Reproduction History /Reproductive History - nurses medical assistants phlebotomists: /Reproductive Hx- nurses medical assistants phlebotomists Hx Now No 09/26/24 08:50 Gestational Age (in weeks): EDC: Hx Hx Para Hx Section SAB PFSH Medical History (Updated 09/26/24 @ 09:00 by Michelle Dailey) Wears glasses Post-menopausal Rash Low iron High cholesterol Dietary restriction Heartburn Gastric reflux Smoker History of echocardiogram History of stress test Cardiology follow-up encounter History of irregular heartbeat GERD (gastroesophageal reflux disease) Neuropathy Murmur, heart Bone fracture Back problem Anemia Home Medications ?Medication ?Instructions ?Recorded ?Last Taken ?Type acetaminophen 500 mg capsule 500 mg PO Q6H PRN pain 08/02/24 Unknown History aspirin 81 mg tablet,delayed 81 mg PO QDAY 08/02/24 Unknown History release atorvastatin 10 mg tablet (Lipitor) 10 mg PO QDAY 08/02/24 Unknown History duloxetine 60 mg capsule,delayed 60 mg PO BID 08/02/24 Unknown History release ezetimibe 10 mg tablet 10 mg PO QDAY 08/02/24 Unknown History loperamide 2 mg-simethicone 125 mg 1 tab PO Q3H PRN loose stool 08/02/24 Unknown History tablet omega 3-vil-ewt-fish oil 300 1 cap PO QDAY 08/02/24 Unknown History mg-1,000 mg capsule (Fish Oil) triamcinolone acetonide 0.1 % 1 applic topical BID 09/26/24 Unknown History topical cream Allergy/AdvReac Type Severity Reaction Status Date / Time No Known Allergies Allergy Verified 09/26/24 08:46 Surgical History (Updated 09/26/24 @ 09:00 by Michelle Dailey) History of cardiac catheterization History of wisdom tooth extraction Social History (Updated 08/02/24 @ 09:35 by Aleta Martínez) Smoking Status: Current every day smoker tobacco type: cigarettes what type of physical activity do you participate in: walking frequency: daily Audit: Pertinent Findings HISTORY of Pertinent Findings History of Pertinent Findings: Echo Pertinent Findings Echo (EF%) pertinent findings July 16, 2024. Ejection 09/26/24 14:36 fraction 55 to 60%. No regional wall motion abnormalities. normal diastolic function. Heart Catheterization Pertinent Findings Heart catheterization July 16, 2024. The left 09/26/24 14:36 pertinent findings main and left anterior descending are normal. Left circumflex and right coronary had mild diffuse disease. In the right coronary there is a proximal 30% stenosis. Pertinent Findings EKG Perinent findings: July 16, 2024. Sinus rhythm. Borderline T abnormalities anterior leads. See follow-up echo. Stress test pertinent findings: July 15, 2024. EKG is negative for inducible ischemia. Ejection fraction is 70%. No reversible ischemia seen in the left ventricular myocardium. Recommendation Anesthesia Recommendation Anesthesia recommendation: OPTIMIZED for anesthesia
[2024-09-27] VITALS (7 sets, daily range): BP systolic 98–124; BP diastolic 6–75; PULSE 65–90; RESP 14–18; TEMP 36.1–36.6; O2SAT 97–100; BMI 33.0
--- NOTE | 2024-09-27 11:43 | PRE.ANES_ITS ---
ASA Classification* ASA Classification ASA Classification: 2 Assessment & Plan Anesthesia* Anesthesia Assessment Anesthesia Assessment: Discussed sedation and/or anesthesia options, risks, benefits, and alternatives with patient/parents/legal guardian/POA. Questions invited. The patient/parents/legal guardian/POA seems to understand and agrees to proceed with anesthesia plan. Reviewed the physical assessment, medical history, allergy history and patient home medications list prior to surgery/procedure/anesthetic and documented any changes. Performed airway and anesthesia risk assessments. 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 When Was Last Pacemaker Check QUESTION #4 FULL TEXT: You/Your Family Experience fever (hyperthermia) with Anesthesia Last Oral Intake Last Oral intake: Last Oral Intake NPO since 06:00 09/27/24 11:02 Meds taken in AM with sips of No 09/27/24 11:02 water? 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 Female Yes 09/26/24 08:50 HX of Motion Sickness No 09/26/24 08:50 HX of N/V After Surgery No 09/26/24 08:50 Non-Smoker No 09/26/24 08:50 Duration of Surgery greater No 09/26/24 08:50 than 60 minutes Number of Risk Factors 1 09/26/24 08:50 PONV Score Low Risk 09/26/24 08:50 Height & Weight Height & Weight: Anesthesia: Height & Weight Height 5 ft 2 in 09/27/24 11:02 Weight: 82 kg 09/27/24 11:02 Body Mass Index (BMI) 33.0 09/27/24 11:02 Respiratory Assessment Respiratory Assessment - associate professor of economics: Respiratory Tract Infection Hx - associate professor of economics Hx Respiratory Tract Infection No 09/26/24 08:50 STOP Sleep Apnea STOP Sleep Apnea - associate professor of economics: STOP Sleep Apnea - associate professor of economics Hx Hypertension No 09/26/24 08:50 Hx Sleep Apnea No 09/26/24 08:50 CPAP BIPAP Do you snore loudly (louder No 09/26/24 08:50 than talking or can be heard Do you often feel tired/ No 09/26/24 08:50 fatigued/ sleepy during daytime? Has anyone observed you stop No 09/26/24 08:50 breathing during sleep? STOP Results Negative 09/26/24 08:50 QUESTION #5 FULL TEXT : Do you snore loudly (louder than talking or can be heard through closed doors)? 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 Specify any problems Hx of Preganancy in last 3 No 09/26/24 08:50 Months Nurse Filling Out Transfusion VLEHMAN 09/26/24 08:50 & Questions: Date: 09/26/24 09/26/24 08:50 Time: 09:01 09/26/24 08:50 Patient unable to answer at this time (ie. confused, unrespo /Reproduction History /Reproductive History - associate professor of economics: /Reproductive Hx- associate professor of economics Hx Now No 09/26/24 08:50 Gestational Age (in weeks): EDC: Hx Hx Para Hx Section SAB PFSH Medical History Wears glasses Post-menopausal Rash Low iron High cholesterol Dietary restriction Heartburn Gastric reflux Smoker History of echocardiogram History of stress test Cardiology follow-up encounter History of irregular heartbeat GERD (gastroesophageal reflux disease) Neuropathy Murmur, heart Bone fracture Back problem Anemia Home Medications ?Medication ?Instructions ?Recorded ?Last Taken ?Type acetaminophen 500 mg capsule 500 mg PO Q6H PRN pain 08/02/24 Unknown History aspirin 81 mg tablet,delayed 81 mg PO QDAY 08/02/24 09/24/24 History release atorvastatin 10 mg tablet (Lipitor) 10 mg PO QDAY 08/02/24 Unknown History duloxetine 60 mg capsule,delayed 60 mg PO BID 08/02/24 Unknown History release ezetimibe 10 mg tablet 10 mg PO QDAY 08/02/24 Unknown History loperamide 2 mg-simethicone 125 mg 1 tab PO Q3H PRN loose stool 08/02/24 Unknown History tablet omega 9-hpx-owh-fish oil 300 1 cap PO QDAY 08/02/24 Unknown History mg-1,000 mg capsule (Fish Oil) triamcinolone acetonide 0.1 % 1 applic topical BID 09/26/24 Unknown History topical cream Allergy/AdvReac Type Severity Reaction Status Date / Time No Known Allergies Allergy Verified 09/27/24 11:02 Surgical History History of cardiac catheterization History of wisdom tooth extraction Social History Smoking Status: Current every day smoker tobacco type: cigarettes what type of physical activity do you participate in: walking frequency: daily Review of Systems (Anesthesia) ROS Narrative System reviewed and no additional complaints, except as documented.
--- NOTE | 2024-09-27 12:00 | COLBX_PTH ---
PATIENT: ALICIA JAY LOC: EN U#:[id number] AGE/SX: 48/F ROOM: RE09/27/[address]: Dr. Leon Stein DO : 1975 BED: DIS: 09/27/2024 SPEC #: [id number] RECD: 09/30/24 09:10 STATUS: JAMMIE REBruno #: [id number] AGGIE: 09/27/24 12:[address]: Leon Stein DEPT: SURGICAL PATHOLOGY RECD BY: Deena Foreman ENTERED: 09/30/24 09:10 SP TYPE: COLON BX OTHR DR: María Ayoub, GREENHOUSE INSTRUCTOR-C Tissues: A - Duodenum, NOS B - Ileum, NOS C - COLON BIOPSY Procedures: Trichrome (control) Special Stain Group I Surgery Specimen Level IV HEADER OPERATION: Colonoscopy with biopsy, EGD with biopsy PRE-OP DIAGNOSIS: Celiac disease, diarrhea, GERD TISSUE SUBMITTED: A- Duodenum biopsy, B- Terminal ileum biopsy, C- Random colon biopsy MICROSCOPIC DIAGNOSIS A. Duodenum, biopsy: Fragments of duodenal mucosa, no pathologic diagnosis. B. Terminal ileum, biopsy: Fragments of small intestinal mucosa with moderate non-specific chronic inflammation. C. Colon, random biopsy: Fragments of colonic mucosa with changes consistent with lymphocytic (microscopic) colitis and collagenous colitis. See comment. 10/01/2024 COMMENT C. Trichrome stain with matched control was used in the evaluation of this case and shows focal thickening of subepithelial collagen band. Correlation with clinical, endoscopic findings and appropriate follow up are necessary. Case has been reviewed in consultation with Dr. Clemente who concurs with the above diagnosis. IDC:AM MICROSCOPIC DESCRIPTION Slides are reviewed. GROSS DESCRIPTION A. Received in fixative is one container labeled with the patient's name and designated Duodenum biopsy. The specimen consists of multiple irregular fragments of light toth soft tissue that in aggregate measure 1.5 x 0.4 x 0.1 cm. The specimen is totally submitted in one cassette. B. Received in fixative is one container labeled with the patient's name and designated Terminal ileum biopsy. The specimen consists of multiple irregular fragments of light toth soft tissue that in aggregate measure 1.2 x 0.3 x 0.1 cm. The specimen is totally submitted in one cassette. C. Received in fixative is one container labeled with the patient's name and designated Random colon biopsy. The specimen consists of multiple irregular fragments of light toth soft tissue that in aggregate measure 1.5 x 0.5 x 0.1 cm. The specimen is totally submitted in one cassette. SJ 09/30/2024 TC:3 CPT:[id number]
--- NOTE | 2024-09-27 12:34 | PCM.HP.STD ---
HPI - General General Date of Admission: 09/27/24 Date of Service: 09/27/24 Chief Complaint: abdominal pain, celiac and screening colon HPI Narrative ALICIA JAY, is a 48 F who presents to the office today for establishment with [facility] for new diagnosis of Celiac disease and complaints of chronic diarrhea. She denies difficulty chewing and swallowing, vomiting, abdominal pain, constipation, hematochezia, and melena. She states that she has eliminated gluten from her diet and no longer has issues with heartburn, reduced issues with bloating and excessive gas. She reports that if she eats gluten, she will have sharp abdominal cramping accompanied by urgent diarrhea. She states that she recently ate a hot dog that must've had gluten in it as it caused her to have severe chest pain and she had to rule out a heart attack. She states that all cardiac testing was negative. She denies noting specific area of abdominal pain with gluten or diarrhea, she denies fatty or greasy foods triggering any symptoms. She reports early satiety. She denies change in drinking water source. She reports a screening colonoscopy the first week of this month, but states I don't trust the doctor that did it. He only said I had colitis and then gave me a medicine to take without explanation. [facility] Medical History Wears glasses Post-menopausal Rash Low iron High cholesterol Dietary restriction Heartburn Gastric reflux Smoker History of echocardiogram History of stress test Cardiology follow-up encounter History of irregular heartbeat GERD (gastroesophageal reflux disease) Neuropathy Murmur, heart Bone fracture Back problem Anemia Home Medications ?Medication ?Instructions ?Recorded ?Last Taken ?Type acetaminophen 500 mg capsule 500 mg PO Q6H PRN pain 08/02/24 Unknown History aspirin 81 mg tablet,delayed 81 mg PO QDAY 08/02/24 09/24/24 History release atorvastatin 10 mg tablet (Lipitor) 10 mg PO QDAY 08/02/24 Unknown History duloxetine 60 mg capsule,delayed 60 mg PO BID 08/02/24 Unknown History release ezetimibe 10 mg tablet 10 mg PO QDAY 08/02/24 Unknown History loperamide 2 mg-simethicone 125 mg 1 tab PO Q3H PRN loose stool 08/02/24 Unknown History tablet omega 0-dkr-dsv-fish oil 300 1 cap PO QDAY 08/02/24 Unknown History mg-1,000 mg capsule (Fish Oil) triamcinolone acetonide 0.1 % 1 applic topical BID 09/26/24 Unknown History topical cream Allergy/AdvReac Type Severity Reaction Status Date / Time No Known Allergies Allergy Verified 09/27/24 11:02 Surgical History History of cardiac catheterization History of wisdom tooth extraction Social History Smoking Status: Current every day smoker tobacco type: cigarettes what type of physical activity do you participate in: walking frequency: daily ROS Constitutional Constitutional: Denies fatigue, fever(s), poor appetite, weight gain or weight loss Gastrointestinal Gastrointestinal: Denies belching, bloating, change in bowel habits, change in stool character, chewing difficulty, coffee ground emesis, constipation, cramping, diarrhea, dyspepsia, dysphagia, early satiety, excessive flatus, fecal incontinence, heartburn, hematemesis, hematochezia, hemorrhoids, loose stools, melena, nausea, odynophagia, rectal bleeding, tenesmus, vomiting or weight changes Vital Signs Vital Signs Vital Signs: 09/27/24 11:02 09/27/24 11:02 09/27/24 11:44 Temperature 97.0 F L 97.0 F L Temperature Source Temporal Pulse Rate 90 90 Respiratory Rate 18 18 Respiratory Pattern Normal Blood Pressure 124/6 H 124/6 H Blood Pressure Mean 45 Blood Pressure Source Monitor Blood Pressure Position Sitting Blood Pressure Location Right Arm Pulse Ox 97 97 Oxygen Delivery Method Room Air Weight Weight: 180 lb 12.465 oz Body Mass Index (BMI) 33.0 Physical Exam Const alert, oriented x3, no apparent distress and healthy appearing General Appearance: cooperative GI normal to inspection, nondistended, normoactive bowel sounds, soft to palpation, non-tender and non-distended Percussion: normal to percussion Rectal Exam: deferred Assessment & Plan Assessment/Plan (1) Celiac disease: (2) Diarrhea: QUALIFIERS: Diarrhea type: unspecified type Qualified Code(s): R19.7 - Diarrhea, unspecified (3) GERD (gastroesophageal reflux disease): PLAN: Plan (1) Celiac disease: Status: Acute Plan: ALICIA JAY, is a 48 F who presents to the office today for establishment with [facility] for new diagnosis of Celiac disease and complaints of chronic diarrhea. Differential diagnoses include: IBS-D, IBD, celiac, gastric dysmotility, colonic dysmotility, food allergies, EPI. Discussed plan with her. blood for inflammatory, iron, food allergy, IBS/D, vitamin B12 stool for inflammatory, enzyme, enteric EGD/c-scope/pill cam to investigate mucosa for Celiac damage reviewed med list, discussed adding gluten back to diet for accurate pathology diagnosis call with results office follow-up 3 months(2) Diarrhea: Status: Acute Qualifiers: Diarrhea type: unspecified type Qualified Code(s): R19.7 - Diarrhea, unspecified Orders: Orders Allergen, Food Profile 14 Today R19.7 - Diarrhea, unspecified Calprotectin, Stool Today R19.7 - Diarrhea, unspecified SUDHAKAR Comprehensive Panel Today R19.7 - Diarrhea, unspecified CRP Today R19.7 - Diarrhea, unspecified Erythrocyte Sed Rate Today R19.7 - Diarrhea, unspecified Giardia Lamblia, Stool EIA Today R19.7 - Diarrhea, unspecified IBD Expanded Profile Today R19.7 - Diarrhea, unspecified TRACEY + Protein Elect, Serum Today R19.7 - Diarrhea, unspecified LDH Today R19.7 - Diarrhea, unspecified Pancreatic Elastase, Fecal Today R19.7 - Diarrhea, unspecified Stool Lactoferrin/WBC Today K58.9 - Irritable bowel syndrome, unspecified, R19.7 - Diarrhea, unspecified CBC W/Diff, Automated Today K90.0 - Celiac disease Ferritin Today K90.0 - Celiac disease Iron Binding Capacity,Total Today K90.0 - Celiac disease Iron Today K90.0 - Celiac disease Vitamin B12 Today K90.0 - Celiac disease
--- NOTE | 2024-09-27 13:14 | OP.CCLET_ITS ---
09/27/2024 Earl Christina Re : Upper GI endoscopy procedure for Viry German Dear Mega This procedure was performed on Friday, September 27, 2024. My impressions and recommendations are as follows: Impressions : - Normal esophagus. - Medium-sized hiatal hernia. - Flattened mucosa was found in the duodenum, diagnostic of celiac disease. Biopsied. Recommendations : - Discharge patient to home. - Resume previous diet. - Continue present medications. - Await pathology results. - Repeat upper endoscopy in 1 year for surveillance. - Return to GI office. My findings are described in the full procedure note, which is enclosed. If I can be of further assistance, please feel free to contact me at . Sincerely, Leon Stein, 09/27/2024 1:13:54 PM This report has been signed electronically.
--- NOTE | 2024-09-27 13:14 | OP.EGD_ITS ---
Patient Name: Viry German Procedure Date: 09/27/2024 12:34 PM Date of : 1975 Age: 48 Procedure: Upper GI endoscopy Indications: Epigastric abdominal pain, Functional Dyspepsia, Failure to respond to medical treatment, Celiac disease, Positive celiac serologies, Diarrhea Providers: Leon Stein DO Referring MD: Earl Christina Medicines: Monitored Anesthesia Care Patient Profile: This is a 48 year old female. Refer to note in patient chart for documentation of history and physical. Patient has symptoms of chronic epigastric abdominal pain. Complications: No immediate complications. Procedure: Pre-Anesthesia Assessment: - Prior to the procedure, a History and Physical was performed, and patient medications and allergies were reviewed. The patient is competent. The risks and benefits of the procedure and the sedation options and risks were discussed with the patient. All questions were answered and informed consent was obtained. Patient identification and proposed procedure were verified by the physician in the pre-procedure area. Mental Status Examination: alert and oriented. Airway Examination: normal oropharyngeal airway and neck mobility. Respiratory Examination: clear to auscultation. CV Examination: normal. Prophylactic Antibiotics: The patient does not require prophylactic antibiotics. Prior Anticoagulants: The patient has taken no anticoagulant or antiplatelet agents. ASA Grade Assessment: II - A patient with mild systemic disease. After reviewing the risks and benefits, the patient was deemed in satisfactory condition to undergo the procedure. The anesthesia plan was to use monitored anesthesia care (MAC). Immediately prior to administration of medications, the patient was re-assessed for adequacy to receive sedatives. The heart rate, respiratory rate, oxygen saturations, blood pressure, adequacy of pulmonary ventilation, and response to care were monitored throughout the procedure. The physical status of the patient was re-assessed after the procedure. After obtaining informed consent, the endoscope was passed under direct vision. Throughout the procedure, the patient's blood pressure, pulse, and oxygen saturations were monitored continuously. The Colonoscope was introduced through the mouth, and advanced to the second part of duodenum. The upper GI endoscopy was accomplished without difficulty. The patient tolerated the procedure well. Scope In: 12:52:45 PM Scope Out: 12:56:09 PM Total Procedure Duration Time 0 hours 3 minutes 24 seconds Findings: The examined esophagus was normal. A medium-sized hiatal hernia was present. No other significant abnormalities were identified in a careful examination of the stomach. Diffuse mucosal flattening was found in the duodenal bulb. Biopsies for histology were taken with a cold forceps for evaluation of celiac disease. Verification of patient identification for the specimen was done. Estimated blood loss was minimal. Impression: - Normal esophagus. - Medium-sized hiatal hernia. - Flattened mucosa was found in the duodenum, diagnostic of celiac disease. Biopsied. Recommendation: - Discharge patient to home. - Resume previous diet. - Continue present medications. - Await pathology results. - Repeat upper endoscopy in 1 year for surveillance. - Return to GI office. Procedure Code(s): --- Professional --- 46320, Esophagogastroduodenoscopy, flexible, transoral; with biopsy, single or multiple CPT copyright 2021 [employer]. All rights reserved. The codes documented in this report are preliminary and upon special education supervisor review may be revised to meet current compliance requirements. Leon Stein DO 09/27/2024 1:13:54 PM This report has been signed electronically. Number of Addenda: 0 Note Initiated On: 09/27/2024 12:34 PM
--- NOTE | 2024-09-27 13:17 | OP.COLON_ITS ---
Patient Name: Viry German Procedure Date: 09/27/2024 12:56 PM Date of : 1975 Age: 48 Procedure: Colonoscopy Indications: Generalized abdominal pain, Clinically significant diarrhea of unexplained origin Providers: Leon Stein DO Referring MD: Earl Christina Medicines: Monitored Anesthesia Care Patient Profile: This is a 48 year old female. Refer to note in patient chart for documentation of history and physical. Patient has symptoms of chronic epigastric abdominal pain. Last Colonoscopy: within the past 6 months. Complications: No immediate complications. Procedure: Pre-Anesthesia Assessment: - Prior to the procedure, a History and Physical was performed, and patient medications and allergies were reviewed. The patient is competent. The risks and benefits of the procedure and the sedation options and risks were discussed with the patient. All questions were answered and informed consent was obtained. Patient identification and proposed procedure were verified by the physician in the pre-procedure area. Mental Status Examination: alert and oriented. Airway Examination: normal oropharyngeal airway and neck mobility. Respiratory Examination: clear to auscultation. CV Examination: normal. Prophylactic Antibiotics: The patient does not require prophylactic antibiotics. Prior Anticoagulants: The patient has taken no anticoagulant or antiplatelet agents. ASA Grade Assessment: II - A patient with mild systemic disease. After reviewing the risks and benefits, the patient was deemed in satisfactory condition to undergo the procedure. The anesthesia plan was to use monitored anesthesia care (MAC). Immediately prior to administration of medications, the patient was re-assessed for adequacy to receive sedatives. The heart rate, respiratory rate, oxygen saturations, blood pressure, adequacy of pulmonary ventilation, and response to care were monitored throughout the procedure. The physical status of the patient was re-assessed after the procedure. After I obtained informed consent, the scope was passed under direct vision. Throughout the procedure, the patient's blood pressure, pulse, and oxygen saturations were monitored continuously. The Colonoscope was introduced through the anus and advanced to the terminal ileum. The colonoscopy was performed without difficulty. The patient tolerated the procedure well. The quality of the bowel preparation was adequate. The terminal ileum, ileocecal valve, appendiceal orifice, and rectum were photographed. Scope In: 12:58:38 PM Scope Withdrawal Time 0 hours 8 minutes 14 seconds Scope Out: 1:09:36 PM Total Procedure Duration Time 0 hours 10 minutes 58 seconds Findings: The perianal and digital rectal examinations were normal. A patchy area of granular mucosa was found in the sigmoid colon, in the descending colon, in the transverse colon and in the ascending colon. Biopsies for histology were taken with a cold forceps from the ascending colon, right colon, left colon, transverse colon, right transverse colon, left transverse colon, descending colon, sigmoid colon and rectum for evaluation of microscopic colitis. Verification of patient identification for the specimen was done. Estimated blood loss was minimal. Patchy mild inflammation characterized by erythema was found in the terminal ileum. Biopsies were taken with a cold forceps for histology. Verification of patient identification for the specimen was done. Estimated blood loss was minimal. Impression: - Granularity in the sigmoid colon, in the descending colon, in the transverse colon and in the ascending colon. Biopsied. - Mild inflammation was found in the ileum secondary to ileitis. Biopsied. Recommendation: - Discharge patient to home. - Resume previous diet. - Continue present medications. - Await pathology results. - Repeat colonoscopy. Procedure Code(s): --- Professional --- 56785, Colonoscopy, flexible; with biopsy, single or multiple CPT copyright 2021 [employer]. All rights reserved. The codes documented in this report are preliminary and upon hand spring repairer helper review may be revised to meet current compliance requirements. Leon Stein DO 09/27/2024 1:17:14 PM This report has been signed electronically. Number of Addenda: 0 Note Initiated On: 09/27/2024 12:56 PM
--- NOTE | 2024-09-27 13:17 | OP.CCLET_ITS ---
09/27/2024 Earl Christina Re : Colonoscopy procedure for Viry German Dear Mega This procedure was performed on Friday, September 27, 2024. My impressions and recommendations are as follows: Impressions : - Granularity in the sigmoid colon, in the descending colon, in the transverse colon and in the ascending colon. Biopsied. - Mild inflammation was found in the ileum secondary to ileitis. Biopsied. Recommendations : - Discharge patient to home. - Resume previous diet. - Continue present medications. - Await pathology results. - Repeat colonoscopy. My findings are described in the full procedure note, which is enclosed. If I can be of further assistance, please feel free to contact me at . Sincerely, Leon Stein, 09/27/2024 1:17:14 PM This report has been signed electronically.
--- NOTE | 2024-09-27 13:19 | PCM.POST.ANE ---
Anesthesia: Postop Eval I Current Vital Signs Temperature: 97.5 F Pulse Rate: 72 Blood Pressure: 102/63 Respiratory Rate: 16 Pulse Ox: 99 Oxygen Delivery Method: Room Air Assessment Airway patent: Yes Spontaneous unlabored respirations: Yes Mental status: Awake and Calm nausea: No Vomiting: No Anesthesia Complication: No Fluid Hydration Crystalloid volume administer (ml): 60 Total IV fluid infused: 60 Progress Note Anesthesia document: Postop Eval 1 completed: Yes
--- NOTE | 2024-09-27 13:26 | PCM.POSTANE2 ---
Anesthesia Postop Eval I Sum Postop Eval Completion status Anesthesia document: Postop Eval 1 completed: Yes Anesthesia Postop Eval I Summary Anesthesia Postop Eval I Summary: Anesthesia Postop Eval I: Assessment Summary Airway patent Yes 09/27/24 13:20 [email or web address] Spontaneous unlabored Yes 09/27/24 13:20 [email or web address] respirations Mental status Awake,Calm 09/27/24 13:20 [email or web address] nausea No 09/27/24 13:20 [email or web address] Vomiting No 09/27/24 13:20 [email or web address] Anesthesia Postop Eval I: Fluid Summary Crystalloid volume administer 60 09/27/24 13:20 [email or web address] (ml) Colloids volume administered ( ml) Blood Product volume administered (ml) Total IV fluid infused 60 09/27/24 13:20 [email or web address] Anesthesia Postop Eval I: Summary Notes Anesthesia Complication No 09/27/24 13:20 [email or web address] Anesthesia Complication Comment: Post-operative progress note Anesthesia: Postop Eval II Evaluation Mental status: Awake Pain Level: 0 nausea: No Vomiting: No
== END 2024-09-27 14:01 | disposition home or self-care (01) ==
LOC: EN 10:53 → AC 10:54
PROVIDERS: PCP Nurse Practitioner Family; Referring Provider Nurse Practitioner Family; Visit Provider Internal Medicine Gastroenterology
PROC: 0DJD8ZZ Inspection of Lower Intestinal Tract, Via Natural or Artificial Opening Endoscopic (ICD-10-PCS; CPT 45378; principal; 2024-09-27 11:55)
DX: K52.9 Noninfective gastroenteritis and colitis, unspecified (principal); K90.0 Celiac disease; K44.9 Diaphragmatic hernia without obstruction or gangrene; K21.9 Gastro-esophageal reflux disease without esophagitis; E78.00 Pure hypercholesterolemia, unspecified; F17.210 Nicotine dependence, cigarettes, uncomplicated; Z79.82 Long term (current) use of aspirin; Z79.899 Other long term (current) drug therapy
CPT/HCPCS: 45380; 43239; 88305; 88312; A4216; J2405

== ENCOUNTER → 2024-11-15 | Outpatient (CLI) | payer BC, SELFPAY ==
--- NOTE | 2024-11-15 10:16 | NM_ITS ---
PROCEDURE: GASTRIC EMPTYING STUDY REASON FOR EXAM: Diarrhea and GERD. TECHNIQUE: Nuclear medicine solid phase gastric emptying study. RADIOPHARMACEUTICAL: 1 millicurie technetium 99 M sulfur colloid in oatmeal. COMPARISON: None. FINDINGS: Prompt gastric emptying was seen, faster than the normal rate, with 50% emptying seen at 17.5 minutes, 74% emptying at 35.5 minutes, and 79% emptying seen at 59.5 minutes. Gastric emptying half time, by linear fit, at 30.8 minutes. NM/Gastric Emptying Study IMPRESSION: Faster than normal solid phase gastric emptying, as noted. Reading Location: [id number]
== END | disposition home or self-care (01) ==
LOC: NM 10:15
PROVIDERS: PCP Nurse Practitioner Family; Referring Provider Internal Medicine Gastroenterology; Visit Provider Internal Medicine Gastroenterology
DX: R19.7 Diarrhea, unspecified (principal); K21.9 Gastro-esophageal reflux disease without esophagitis
CPT/HCPCS: 78264; A9541

== ENCOUNTER → 2024-11-22 | Outpatient (CLI) | payer BC, SELFPAY ==
--- NOTE | 2024-11-22 09:18 | MRI_ITS ---
EXAM: MRI of the abdomen/pelvis without and with intravenous contrast. CLINICAL HISTORY: Celiac disease. Severe diarrhea. Rapid emptying. COMPARISON: None available. TECHNIQUE: Multiplanar, multisequence MRI images of the abdomen/pelvis were obtained without and with intravenous contrast. 15 cc Clariscan IV contrast was administered. FINDINGS: Included osseous structures of the abdomen/pelvis appear intact. There is moderate fluid signal in the stomach. Included lower lungs grossly clear. Heart is not enlarged. No sizable pericardial effusion. No filling defects in the gallbladder. No abnormal dilation of the biliary tree. No large abdominal wall defect. Out of phase images were not obtained. The liver, adrenal glands, spleen, pancreas, and kidneys are unremarkable. The abdominal aorta is normal in caliber. Major aortic side branches are grossly patent, although evaluation is limited on this study. No abnormally dilated bowel segments. No abdominal/pelvic adenopathy or ascites. Some sequences are suboptimal due to motion artifact. The uterus is present. No adnexal mass. No focal abnormality of the urinary bladder.. There is some patchy wall thickening of the rectosigmoid colon, which could be due to lack of distention. MRI/Enterography Abd/Pel IMPRESSION: No acute findings in the abdomen/pelvis. There is some patchy wall thickening of the rectosigmoid colon on the axial pos tcontrast images. This could be due to lack of distention with a mild component of inflammatory bowel disease not entirely exc luded. No evidence of bowel obstruction or perforation. No drainable abdominal/pelvic fluid collection. No abdominal/pelvic adenopathy or ascites. Major solid organs of the abdomen are unremarkable. Reading Location: [facility]
[2024-11-22 10:00] VITALS: BP 113/73; PULSE 69; RESP 16; O2SAT 96; BMI 32.1
[2024-11-22] MEDS: Glucagon 1 MG/ML Syringe IV (11:07)
[2024-11-22 11:22] VITALS: BP 151/71; PULSE 85; RESP 16; O2SAT 100
== END | disposition home or self-care (01) ==
PROVIDERS: PCP Nurse Practitioner Family; Referring Provider Internal Medicine Gastroenterology; Visit Provider Internal Medicine Gastroenterology
DX: K90.0 Celiac disease (principal); R19.7 Diarrhea, unspecified
CPT/HCPCS: 74183; 96374; A9575; A4216; J1610

== ENCOUNTER → 2024-12-13 | Outpatient (CLI) | payer BC, SELFPAY ==
[2024-12-13 09:43] LABS: Erythrocyte Sedimentation Rate 25 mm/hr (0-30)
[2024-12-13 10:08] LABS: CRP 9.57 mg/L (0.0-3.0); Glucose Challenge Gest 1H 50g 117 mg/dL
[2024-12-13 10:36] LABS: Hemoglobin A1c 5.7 % (<=5.6)
[2024-12-18 17:08] LABS: Dopamine, 24Ur 156 ug/24 hr (0-510); Dopamine, Pl <30 pg/mL (0-48); Dopamine, UR 106 ug/L (Undefined); Epinephrine, 24Ur < 4 ug/24 hr (0-20); Epinephrine, Pl <15 pg/mL (0-62); Epinephrine, Ur < 3 ug/L (Undefined); Gastrin, Serum 39 pg/mL (0-115); Norepinephrine, 24Ur 50 ug/24 hr (0-135); Norepinephrine, Pl 538 pg/mL (0-874); Norepinephrine, Ur 34 ug/L (Undefined); VMA, 24UR 1.8 mg/24 hr (0.0-7.5); VMA, UR 1.2 mg/L (Undefined)
== END | disposition home or self-care (01) ==
PROVIDERS: PCP Nurse Practitioner Family; Referring Provider Internal Medicine Gastroenterology; Visit Provider Internal Medicine Gastroenterology
DX: R19.7 Diarrhea, unspecified (principal); K21.9 Gastro-esophageal reflux disease without esophagitis; K90.0 Celiac disease
CPT/HCPCS: 36415; 82384; 82941; 82950; 83036; 84585; 85652; 86140

== ENCOUNTER → 2025-03-12 | Outpatient (CLI) | payer BC, SELFPAY ==
--- NOTE | 2025-03-12 08:07 | MRI_ITS ---
PROCEDURE: SPINE LUMBAR (ROUTINE) 03/12/2025 REASON FOR EXAM: PAIN TECHNIQUE: Multiplanar and multisequence images were obtained without IV contrast administration. COMPARISON: None FINDINGS: The vertebral body alignment is maintained. The vertebral body height is maintained. Vertebral body marrow signal is normal. Intervertebral disc signal is essentially normal. Normal appearing facets are noted. The L1-L2 level: There is no significant disk protrusion. There is no lateral recess stenosis or foraminal stenosis. There is no critical central canal stenosis. The L2-L3 level: There is no significant disk protrusion. There is no lateral recess stenosis or foraminal stenosis. There is no critical central canal stenosis. The L3-L4 level: There is no significant disk protrusion. There is no lateral recess stenosis or foraminal stenosis. There is no critical central canal stenosis. The L4-L5 level: There is no significant disk protrusion. There is no lateral recess stenosis or foraminal stenosis. There is no critical central canal stenosis. Trace bilateral facet effusions are present. The L5-S1 level: There is minimal central disk protrusion. There is increased signal in the right margin of the disc consistent with a fissure. There is no significant lateral recess stenosis. There is mild bilateral foraminal narrowing secondary to disc protrusion and facet hypertrophy. There is no critical central canal stenosis. The visualized conus shows normal signal characteristics. Adjacent soft tissues are unremarkable. MRI/Spine Lumbar (Routine) IMPRESSION: There is no significant spinal stenosis. There is mild degenerative disc disease at L5-S1, with mild bilateral foraminal narrowing. Reading Location: [facility]
== END | disposition home or self-care (01) ==
PROVIDERS: PCP Nurse Practitioner Family; Referring Provider Orthopaedic Surgery; Visit Provider Orthopaedic Surgery
DX: M54.16 Radiculopathy, lumbar region (principal)
CPT/HCPCS: 72148